=== PATIENT | male | born 1950 | race Caucasian/White ===

== ENCOUNTER 2022-12-05 13:18 | Inpatient (IN) ==
--- NOTE | 2022-12-05 13:46 | Emergency Department Note ---
Impression & Plan Wound, open, foot, CKD (chronic kidney disease), stage III, Cellulitis, Hyponatremia ED Provider Note Name: KARIE MATTSON Age: 72 Sex: M Arrives Via: Walk-In Informant: Patient, Daughter ED Provider: Kenny Benjamin MD Chief Complaint: Foot wound Impression: As per impression above Medical Decision Makin-year-old gentleman who notes a history of hypertension, A-fib, dyslipidemia but denies diabetes history though chart review would say that he has type 2 diabetes. Patient with several weeks of a wound of the left great toe. This occurred after accidentally pulling toenail off. His entire toe is now infected cellulitic and weeping with some ischemic findings distally. Cellulitis now extending over the foot and up the ankle and extending on the second toe. X- rays are without overt osteomyelitis findings. Labs are consistent with inflammatory process though no overt sepsis. Blood cultures were obtained. He was empirically started on Zosyn for broad coverage. Patient is not septic or severe sepsis at this time. Hospitalist was consulted for further management. Patient does not have acute full leg ischemia thus did not feel CTA imaging would be indicated at this time External chart review from [facility] record reviewed and triage/Nursing Notes reviewed by Me Differentials:Cellulitis, abscess, gangrene, osteomyelitis, sepsis, neck Fash, electrolyte imbalance amongst many other pathologies considered Vital Signs: reviewed and remarkable for hypertension on arrival Interventions: Normal saline bolus 1 L IV, Zofran 4 mg IV, Zosyn 4.5 g IV, pain IV Labs:Reviewed and remarkable for elevated CRP, hyponatremia, mild elevation in creatinine, hyperglycemia Imagin view chest x-ray interpreted by me no infiltrate nor effusion or congestive failure appreciated. 3 view left foot per my interpretation moderate soft tissue edema over medial distal foot, no overt fracture or foreign body or osteomyelitis appreciated Consults:Dr Adrienne Samuel Hospitalist Plan: Disposition:Hospitalization. Condition: Good History of Present Illness:72-year-old gentleman arrives for evaluation of toe injury. Patient notes about 5 weeks ago he accidentally tore his toenail off while he was taking off his sock. Since then some irritation but over the last week or so increasing redness drainage discoloration. It is now extending onto the second toe and is having cellulitis running up his foot. Associated with periodic sporadic stabbing pains. Worse with movement better with rest. No fevers, chills, nausea, vomiting. Denies any shortness of breath. Does note that his legs are more swollen than usual with bilateral legs swollen from the knees downward. Has a history of leg swelling this is a bit more severe than usual. Denies any other falls, trauma, injuries. Past Medical History:Hypertension, A-fib, dyslipidemia Home Medications:Lisinopril metoprolol atorvastatin aspirin and meloxicam Allergies:NKDA Vitals:Blood Pressure: 191/93, Pulse 95, RR 16, T 36.5C, O2 97% on RA Physical Exam: GENERAL: Patient is tired appearing and in minimal distress. EYES: No scleral icterus, unremarkable pupils. RESPIRATORY: No dyspnea. Clear to auscultation and equal bilaterally. No wheeze, no rhonchi. CARDIOVASCULAR: Tacky irregular.No murmurs, rubs, gallops appreciated. GASTROINTESTINAL: Abdomen soft, non-tender, no peritonitis. EXTREMITIES: Normal motion all extremities, no cyanosis, 3+ pitting edema bilateral lower legs from knees down. He has a gangrenous exudative draining left great toe with poor cap refill distally. Some mild edema drainage of the left second toe immediately. There is cellulitis extending over the top of the foot onto the medial left ankle. Patient has decreased pulses bilateral lower legs and the feet. NEUROLOGIC: Alert and oriented, no focal neurologic deficit SKIN: No rash, no jaundice, no diaphoresis. PSYCH: Appropriate GCS: 15 ED Course: Times/Reassessments: Patient is comfortable after some pain medications and agreeable to hospitalization Kenny Benjamin MD Past Med/Surg History Medical History Afib CAD (coronary artery disease) Chronic gout CKD (chronic kidney disease), stage III Diabetes type 2, controlled HTN (hypertension) Tophi gouty Surgical History S/P angioplasty with stent Social History Preferred Language: Yoruba Feels Safe at Home: Yes Allergies Allergies Allergy/AdvReac Type Severity Reaction Status Date / Time No Known Allergies Allergy Unverified 12/05/22 16:10 Home Meds Home Medications Medication Instructions Recorded Confirmed allopurinol 300 mg tablet 300 mg PO QAM 12/05/22 12/05/22 aspirin 81 mg tablet,delayed 81 mg PO DAILY 12/05/22 12/05/22 release lisinopril 20 mg tablet 20 mg PO QAM 12/05/22 12/05/22 meloxicam 15 mg tablet 15 mg PO QAM 12/05/22 12/05/22 metoprolol tartrate 25 mg tablet 25 mg PO BID 12/05/22 12/05/22 prednisone 5 mg tablet 5 mg PO QAM 12/05/22 12/05/22 simvastatin 20 mg tablet 20 mg PO QPM 12/05/22 12/05/22 Results & Data (ED) Vital Signs Vital Signs - 24 hr 12/05/22 13:20 12/05/22 16:00 12/05/22 16:08 Temperature 36.5 C Temperature Source Temporal Artery Scan Pulse Rate 95 H 75 Pulse Rate [Right Finger] 74 Pulse Rhythm [Right Finger] Irregular Pulse Strength [Right Finger] Normal Respiratory Rate 16 18 Respiratory Effort / Characteristics Non-Labored Non-Labored Respiratory Depth Normal Normal Respiratory Pattern Regular Blood Pressure 191/93 H Blood Pressure [Right Arm] 160/104 H Blood Pressure Mean 125 Blood Pressure Mean [Right Arm] 122 Blood Pressure Position [Right Arm] Lying Pulse Oximetry 97 100 Oxygen Delivery Method Room Air Room Air Sepsis Recent Fever Within 48 Hours No Sepsis New/Unexplained Change in Mental Status No Sepsis Action Taken by Nursing No Action Required 12/05/22 18:15 Temperature 36.8 C Temperature Source Oral Pulse Rate 66 Pulse Rate [Right Finger] Pulse Rhythm [Right Finger] Pulse Strength [Right Finger] Respiratory Rate 18 Respiratory Effort / Characteristics Respiratory Depth Respiratory Pattern Blood Pressure 158/101 H Blood Pressure [Right Arm] Blood Pressure Mean Blood Pressure Mean [Right Arm] Blood Pressure Position [Right Arm] Pulse Oximetry 99 Oxygen Delivery Method Room Air Sepsis Recent Fever Within 48 Hours Sepsis New/Unexplained Change in Mental Status Sepsis Action Taken by Nursing Laboratory Data 12/05/22 14:00 12/05/22 14:00 Lab Results 12/05/22 12/05/22 12/05/22 Range/Units 14:00 14:00 14:00 WBC (4.8-10.8) K/ul RBC (4.70-6.10) M/uL Hgb (14.0-18.0) g/dl Hct (42.0-52.0) % MCV (80.0-100.0) fL MCH (25.0-34.0) pg MCHC (32.0-36.0) g/dL RDW Std Deviation (36.4-46.3) fL RDW Coeff of Landen (11.5-14.5) % Plt Count (130-400) K/uL MPV (9.4-12.4) fL Immature Gran % (Auto) % Neut % (Auto) % Lymph % (Auto) % Allen % (Auto) % Eos % (Auto) % Baso % (Auto) % Neut # (Auto) (1.40-6.50) K/uL Lymph # (Auto) (1.2-3.4) K/uL Allen # (Auto) (0.11-0.59) K/uL Eos # (Auto) (0-0.50) K/uL Baso # (Auto) (0-0.2) K/uL Immature Gran # (Auto) (0.01-0.20) K/uL PT (9.0-12.0) Seconds INR (0.9-1.1) Sodium 128 L (136-145) mmol/L Potassium 4.6 (3.5-5.1) mmol/L Chloride 97 L (98-107) mmol/L Carbon Dioxide 24 (21-32) mmol/L Anion Gap 7 (3-11) BUN 28 H (6-23) mg/dl Creatinine 1.46 H (0.6-1.4) mg/dl Est Cr Clr Drug Dosing Not Reportable Est GFR ( Amer) 55.3 ml/min Est GFR (Non-Af Amer) 47.7 ml/min BUN/Creatinine Ratio 19.2 (10-20) Glucose 135 H (70-99(Fasting)) mg/dl Lactate 1.1 (0.4-2.0) mmol/L Calcium 9.6 (8.6-10.3) mg/dl Magnesium 2.1 (1.7-2.4) mg/dl Total Bilirubin 0.6 (0.2-1.0) mg/dl Direct Bilirubin 0.1 (0-0.2) mg/dl AST 15 (13-39) U/L ALT 14 (7-52) U/L Alkaline Phosphatase 69 (34-104) U/L Troponin I High Sens 11.0 (0-20) pg/ml C-Reactive Protein 2.41 H (0-0.5) mg/dl B-Natriuretic Peptide 274 H (0-100) pg/ml Total Protein 7.6 (6.0-8.3) gm/dl Albumin 4.2 (3.4-5.0) gm/dl Procalcitonin (0-0.5) ng/ml Urine Color Urine Appearance (Clear) Urine pH (4.5-7.5) Ur Specific [place] (1.000-1.030) Urine Protein (Negative) Urine Glucose (UA) (Negative) Urine Ketones (Negative) Urine Blood (Negative) Urine Nitrite (Negative) Urine Bilirubin (Negative) Urine Urobilinogen (Negative) Ur Leukocyte Esterase (Negative) Urine WBC (Auto) (0-5) /hpf Urine RBC (Auto) (0-4) /hpf U Hyaline Cast (Auto) (0-5) /lpf U Epithel Cells (Auto) (0-5) /lpf Urine Bacteria (Auto) (Negative) SARS-CoV-2 (PCR) (Negative) Influenza Type A (PCR) (Neg) Influenza Type B (PCR) (Neg) RSV (RT-PCR) (Neg) 12/05/22 12/05/22 12/05/22 Range/Units 14:00 14:00 14:00 WBC 11.82 H (4.8-10.8) K/ul RBC 3.95 L (4.70-6.10) M/uL Hgb 13.4 L (14.0-18.0) g/dl Hct 37.7 L (42.0-52.0) % MCV 95.4 (80.0-100.0) fL MCH 33.9 (25.0-34.0) pg MCHC 35.5 (32.0-36.0) g/dL RDW Std Deviation 47.7 H (36.4-46.3) fL RDW Coeff of Landen 13.7 (11.5-14.5) % Plt Count 288 (130-400) K/uL MPV 8.9 L (9.4-12.4) fL Immature Gran % (Auto) 1.0 % Neut % (Auto) 87.8 % Lymph % (Auto) 4.6 % Allen % (Auto) 6.1 % Eos % (Auto) 0.3 % Baso % (Auto) 0.2 % Neut # (Auto) 10.39 H (1.40-6.50) K/uL Lymph # (Auto) 0.54 L (1.2-3.4) K/uL Allen # (Auto) 0.72 H (0.11-0.59) K/uL Eos # (Auto) 0.03 (0-0.50) K/uL Baso # (Auto) 0.02 (0-0.2) K/uL Immature Gran # (Auto) 0.12 (0.01-0.20) K/uL PT 11.3 (9.0-12.0) Seconds INR 1.1 (0.9-1.1) Sodium (136-145) mmol/L Potassium (3.5-5.1) mmol/L Chloride (98-107) mmol/L Carbon Dioxide (21-32) mmol/L Anion Gap (3-11) BUN (6-23) mg/dl Creatinine (0.6-1.4) mg/dl Est Cr Clr Drug Dosing Est GFR ( Amer) ml/min Est GFR (Non-Af Amer) ml/min BUN/Creatinine Ratio (10-20) Glucose (70-99(Fasting)) mg/dl Lactate (0.4-2.0) mmol/L Calcium (8.6-10.3) mg/dl Magnesium (1.7-2.4) mg/dl Total Bilirubin (0.2-1.0) mg/dl Direct Bilirubin (0-0.2) mg/dl AST (13-39) U/L ALT (7-52) U/L Alkaline Phosphatase (34-104) U/L Troponin I High Sens (0-20) pg/ml C-Reactive Protein (0-0.5) mg/dl B-Natriuretic Peptide (0-100) pg/ml Total Protein (6.0-8.3) gm/dl Albumin (3.4-5.0) gm/dl Procalcitonin 0.08 (0-0.5) ng/ml Urine Color Urine Appearance (Clear) Urine pH (4.5-7.5) Ur Specific [place] (1.000-1.030) Urine Protein (Negative) Urine Glucose (UA) (Negative) Urine Ketones (Negative) Urine Blood (Negative) Urine Nitrite (Negative) Urine Bilirubin (Negative) Urine Urobilinogen (Negative) Ur Leukocyte Esterase (Negative) Urine WBC (Auto) (0-5) /hpf Urine RBC (Auto) (0-4) /hpf U Hyaline Cast (Auto) (0-5) /lpf U Epithel Cells (Auto) (0-5) /lpf Urine Bacteria (Auto) (Negative) SARS-CoV-2 (PCR) (Negative) Influenza Type A (PCR) (Neg) Influenza Type B (PCR) (Neg) RSV (RT-PCR) (Neg) 12/05/22 12/05/22 Range/Units 14:03 14:03 WBC (4.8-10.8) K/ul RBC (4.70-6.10) M/uL Hgb (14.0-18.0) g/dl Hct (42.0-52.0) % MCV (80.0-100.0) fL MCH (25.0-34.0) pg MCHC (32.0-36.0) g/dL RDW Std Deviation (36.4-46.3) fL RDW Coeff of Landen (11.5-14.5) % Plt Count (130-400) K/uL MPV (9.4-12.4) fL Immature Gran % (Auto) % Neut % (Auto) % Lymph % (Auto) % Allen % (Auto) % Eos % (Auto) % Baso % (Auto) % Neut # (Auto) (1.40-6.50) K/uL Lymph # (Auto) (1.2-3.4) K/uL Allen # (Auto) (0.11-0.59) K/uL Eos # (Auto) (0-0.50) K/uL Baso # (Auto) (0-0.2) K/uL Immature Gran # (Auto) (0.01-0.20) K/uL PT (9.0-12.0) Seconds INR (0.9-1.1) Sodium (136-145) mmol/L Potassium (3.5-5.1) mmol/L Chloride (98-107) mmol/L Carbon Dioxide (21-32) mmol/L Anion Gap (3-11) BUN (6-23) mg/dl Creatinine (0.6-1.4) mg/dl Est Cr Clr Drug Dosing Est GFR ( Amer) ml/min Est GFR (Non-Af Amer) ml/min BUN/Creatinine Ratio (10-20) Glucose (70-99(Fasting)) mg/dl Lactate (0.4-2.0) mmol/L Calcium (8.6-10.3) mg/dl Magnesium (1.7-2.4) mg/dl Total Bilirubin (0.2-1.0) mg/dl Direct Bilirubin (0-0.2) mg/dl AST (13-39) U/L ALT (7-52) U/L Alkaline Phosphatase (34-104) U/L Troponin I High Sens (0-20) pg/ml C-Reactive Protein (0-0.5) mg/dl B-Natriuretic Peptide (0-100) pg/ml Total Protein (6.0-8.3) gm/dl Albumin (3.4-5.0) gm/dl Procalcitonin (0-0.5) ng/ml Urine Color Yellow Urine Appearance Clear (Clear) Urine pH 5.5 (4.5-7.5) Ur Specific [place] 1.017 (1.000-1.030) Urine Protein 1+ H (Negative) Urine Glucose (UA) Trace H (Negative) Urine Ketones Negative (Negative) Urine Blood Negative (Negative) Urine Nitrite Negative (Negative) Urine Bilirubin Negative (Negative) Urine Urobilinogen Negative (Negative) Ur Leukocyte Esterase Negative (Negative) Urine WBC (Auto) 1-5 (0-5) /hpf Urine RBC (Auto) 0-4 (0-4) /hpf U Hyaline Cast (Auto) 1-5 (0-5) /lpf U Epithel Cells (Auto) 5-10 H (0-5) /lpf Urine Bacteria (Auto) Negative (Negative) SARS-CoV-2 (PCR) NEGATIVE (Negative) Influenza Type A (PCR) Negative (Neg) Influenza Type B (PCR) Negative (Neg) RSV (RT-PCR) Negative (Neg) Administered Medications Discontinued Medications Sodium Chloride (Nss 1000ml) 500 mls @ 999 mls/hr IV .Q31M ONE Stop: 12/05/22 15:10 Last Infusion: 12/05/22 15:59 Dose: 0 mls/hr Documented By: Admin: 12/05/22 15:27 Dose: 999 mls/hr Documented By: AP Piperacillin Sod/Tazobactam Sod (Zosyn) 4.5 gm in 120 mls @ 240 mls/hr IV NOW ONE Stop: 12/05/22 15:26 Last Infusion: 12/05/22 15:59 Dose: 0 mls/hr Documented By: Admin: 12/05/22 15:27 Dose: 240 mls/hr Documented By: AP Morphine Sulfate (Morphine Sulfate 10 Mg/Ml Carp/Vial) 6 mg IV NOW STA Stop: 12/05/22 14:41 Last Admin: 12/05/22 15:27 Dose: Not Given Documented By: AP Morphine Sulfate (Morphine Sulfate 2 Mg/Ml Carp) Confirm Administered Dose 2 mg .ROUTE .STK-MED ONE Stop: 12/05/22 15:13 Last Admin: 12/05/22 15:26 Dose: 2 mg Documented By: AP Morphine Sulfate (Morphine Sulfate 4 Mg/Ml 1 Ml Carp\Vial) Confirm Administered Dose 4 mg .ROUTE .STK-MED ONE Stop: 12/05/22 15:14 Last Admin: 12/05/22 15:26 Dose: 4 mg Documented By: AP Ondansetron HCl (Ondansetron Inj 2 Mg/Ml 2 Ml Vial) 4 mg IV NOW STA Stop: 12/05/22 14:41 Last Admin: 12/05/22 15:26 Dose: 4 mg Documented By: AP Imaging Data Radiologist's Impression: Chest X-Ray 12/05/22 13:35 XR chest 1V portable CLINICAL HISTORY: fluid overload TECHNIQUE: Single frontal radiograph of the chest was obtained. Comparison: None available at the time of this dictation. FINDINGS: No lines and tubes are seen. Cardiomegaly is noted. The lungs are clear. No evidence of pleural effusion or pneumothorax. IMPRESSION: No acute chest disease. ACT 112: Negative or not required by law. Electronically signed by: Madi Carmen M.D. 12/05/2022 1:58 PM Foot X-Ray 12/05/22 13:40 XR foot LT min 3V routine CLINICAL HISTORY: left great toe infection TECHNIQUE: 3 views of the left foot were obtained. Comparison: None available at the time of this dictation. FINDINGS: No evidence of bony erosion is seen. Degenerative changes are seen with erosions about the second digit DIP joint. Vascular calcifications are noted. Soft tissue swelling is seen about the foot. IMPRESSION: No radiographic evidence of osteomyelitis. If clinical concern remains, MRI is a more sensitive modality. ACT 112: Negative or not required by law. Electronically signed by: Madi Carmen M.D. 12/05/2022 2:04 PM Venous Doppler Study 12/05/22 16:43 US venous doppler LE BI CLINICAL HISTORY: worsening leg swelling (b/l but L>R) TECHNIQUE: Bilateral lower extremity real-time compression venous ultrasound with Color Doppler imaging. Utilizing real-time ultrasonic imaging multiple real time high-resolution ultrasonic images with compression and noncompression maneuvers of the deep venous system in addition to color doppler imaging were performed from the common femoral vein through the proximal calf veins. COMPARISON: None available at the time of this dictation. FINDINGS/IMPRESSION: Currently there is normal compressibility of the deep venous system from the common femoral vein through the proximal calf veins. No superficial venous thrombosis is identified. ACT 112: Negative or not required by law. Electronically signed by: Madi Carmen M.D. 12/05/2022 6:05 PM Discharge Plan Visit Data Chief Complaint: Infection Stated Complaint: INFECTION ON L TOES ED Provider: Kenny Benjamin Discharge Problem: Wound, open, foot, CKD (chronic kidney disease), stage III, Cellulitis, Hyponatremia Discharge Instructions Interventions: ED Discharge Assessment Last Done: 12/05/22 18:15 Prescriptions Prescriptions: No Action meloxicam 15 mg tablet 15 mg PO QAM lisinopril 20 mg tablet 20 mg PO QAM prednisone 5 mg tablet 5 mg PO QAM simvastatin 20 mg tablet 20 mg PO QPM allopurinol 300 mg tablet 300 mg PO QAM metoprolol tartrate 25 mg tablet 25 mg PO BID aspirin [Aspirin Low-Strength] 81 mg Tablet,Delayed Release (Dr/Ec) 81 mg PO DAILY
--- NOTE | 2022-12-05 13:59 | XRay Report ---
XR chest 1V portable CLINICAL HISTORY: fluid overload TECHNIQUE: Single frontal radiograph of the chest was obtained. Comparison: None available at the time of this dictation. FINDINGS: No lines and tubes are seen. Cardiomegaly is noted. The lungs are clear. No evidence of pleural effus ion or pneumothorax. IMPRESSION: No acute chest disease. ACT 112: Negative or not required by law. Electronically signed by: Madi Carmen M.D. 12/05/2022 1:58 PM
--- NOTE | 2022-12-05 14:05 | XRay Report ---
XR foot LT min 3V routine CLINICAL HISTORY: left great toe infection TECHNIQUE: 3 views of the left foot were obtained. Comparison: None available at the time of this dictation. FINDINGS: No evidence of bony erosion is seen. Degenerative changes are seen with erosions about the second dig it DIP joint. Vascular calcifications are noted. Soft tissue swelling is seen about the foot. IMPRESSION: No radiographic evidence of osteomyelitis. If clinical concern remains, MRI is a more sensitive modal ity. ACT 112: Negative or not required by law. Electronically signed by: Madi Carmen M.D. 12/05/2022 2:04 PM
[2022-12-05 14:37] LABS: Alanine Aminotransferase 14 U/L (7-52); Albumin Level 4.2 gm/dl (3.4-5.0); Alkaline Phosphatase 69 U/L (34-104); Anion Gap 7 (3-11); Aspartate Aminotransferase 15 U/L (13-39); BUN Creatinine Ratio 19.2 (10-20); Bilirubin Direct 0.1 mg/dl (0-0.2); Bilirubin,Total 0.6 mg/dl (0.2-1.0); Blood Urea Nitrogen 28 mg/dl (6-23); C Reactive Protein 2.41 mg/dl (0-0.5); Calcium 9.6 mg/dl (8.6-10.3); Carbon Dioxide 24 mmol/L (21-32); Chloride 97 mmol/L (98-107); Est GFR (African American) 55.3 ml/min; Est GFR (Non-African American) 47.7 ml/min; Glucose 135 mg/dl (70-99(Fasting)); Magnesium 2.1 mg/dl (1.7-2.4); Potassium 4.6 mmol/L (3.5-5.1); Sodium 128 mmol/L (136-145); Total Protein 7.6 gm/dl (6.0-8.3)
[2022-12-05 14:38] LABS: Appearance Urine Clear (Clear); Bacteria Urine Automated Negative (Negative); Bilirubin Urine Negative (Negative); Blood Urine Negative (Negative); Color Urine Yellow; Glucose Urine UA Trace (Negative); Ketones Urine Negative (Negative); Leukocyte Esterase Urine Negative (Negative); Nitrite Urine Negative (Negative); Protein Urine 1+ (Negative); RBC Urine Automated 0-4 /hpf (0-4); Specific Gravity Urine 1.017 (1.000-1.030); Urobilinogen Urine Negative (Negative); pH Urine 5.5 (4.5-7.5)
[2022-12-05] MEDS ORDERED: SODIUM CHLORIDE 0.9% 1000ML 500 ML IV ONE (14:40)
[2022-12-05] MEDS ORDERED: ONDANSETRON INJ 2 MG/ML 2 ML VIAL IV STA (14:40)
[2022-12-05] MEDS ORDERED: MoRPHine SULFATE 10 MG/ML CARP/VIAL IV STA (14:40)
[2022-12-05 14:47] LABS: INR 1.1 (0.9-1.1); Prothrombin Time 11.3 Seconds (9.0-12.0)
[2022-12-05 14:54] LABS: Influenza A virus by PCR Negative (Neg); Influenza B virus by PCR Negative (Neg); RSV by PCR Negative (Neg); SARS CoV2 RNA(COVID-19) Ceph NEGATIVE (Negative)
[2022-12-05] MEDS ORDERED: PIPERACILLIN/TAZOBACTAM 4.5 GM/120 ML BAG IV ONE (14:57)
[2022-12-05] MEDS ORDERED: MoRPHine SULFATE 2 MG/ML CARP ONE (15:12)
[2022-12-05] MEDS ORDERED: MoRPHine SULFATE 4 MG/ML 1 ML CARP\\VIAL ONE (15:13)
[2022-12-05 15:54] LABS: Eosinophils % (auto) 0.3 %; Hematocrit (blood only) 37.7 % (42.0-52.0); Hemoglobin 13.4 g/dl (14.0-18.0); Lymphocytes % (auto) 4.6 %; Mean Corpuscular Hemoglobin 33.9 pg (25.0-34.0); Mean Corpuscular Hgb Conc 35.5 g/dL (32.0-36.0); Mean Corpuscular Volume 95.4 fL (80.0-100.0); Mean Platelet Volume 8.9 fL (9.4-12.4); Monocytes % (auto) 6.1 %; Neutrophils % (auto) 87.8 %; Platelet Count 288 K/uL (130-400); RDW Coefficient of Variation 13.7 % (11.5-14.5); RDW Standard Deviation 47.7 fL (36.4-46.3); Red Blood Count 3.95 M/uL (4.70-6.10); White Blood Count 11.82 K/ul (4.8-10.8)
[2022-12-05 15:55] LABS: Basophils # (auto) 0.02 K/uL (0-0.2); Basophils % (auto) 0.2 %; Eosinophils # (auto) 0.03 K/uL (0-0.50); Immature Granulocytes # (auto) 0.12 K/uL (0.01-0.20); Lymphocytes # (auto) 0.54 K/uL (1.2-3.4); Monocytes # (auto) 0.72 K/uL (0.11-0.59); Neutrophils # (auto) 10.39 K/uL (1.40-6.50)
--- NOTE | 2022-12-05 18:06 | Ultrasound Report ---
US venous doppler LE BI CLINICAL HISTORY: worsening leg swelling (b/l but L>R) TECHNIQUE: Bilateral lower extremity real-time compression venous ultrasound with Color Doppler imagi ng. Utilizing real-time ultrasonic imaging multiple real time high-resolution ultrasonic images with compression and noncompression maneuvers of the deep venous system in addition to color doppler imagi ng were performed from the common femoral vein through the proximal calf veins. COMPARISON: None available at the time of this dictation. FINDINGS/IMPRESSION: Currently there is normal compressibility of the deep venous system from the common femoral vein thro ugh the proximal calf veins. No superficial venous thrombosis is identified. ACT 112: Negative or not required by law. Electronically signed by: Madi Carmen M.D. 12/05/2022 6:05 PM
--- NOTE | 2022-12-05 18:14 | History & Physical Report ---
Date of Service December 05, 2022 Assessment & Plan (1) Wound, open, foot: (2) Cellulitis: (3) Leg edema: (4) Hyponatremia: (5) Diabetes type 2, controlled: (6) Afib: (7) CKD (chronic kidney disease), stage III: (8) CAD (coronary artery disease): (9) S/P angioplasty with stent: (10) Chronic gout: (11) HTN (hypertension): Plan L foot wound with cellulitis + hx of Diabetes: -presence of leukocytosis -with hx of DMII and chronic prednisone use will do Vanc and Zosyn --- MRSA swab -Foot Xray showed no sign of osteo -however due to the presentation of the wound will get a MRI foot to r/o osteo -Ortho consult -morphine 1mg q6hr prn for severe pain B/L leg swelling with L leg erythema: -severe b/l pitting edema -with the hx of CAD and Afib will get echo -b/l Doppler: no dvt -admit to tele - no need for cardiology consult at this time - likely need to be on diuretics --- will await until echo and repeat BMP (since pt is getting contrast with MRI) HypoNa+: -2/2 infection vs possible fluid overload -will trend BMP Afib: -not on AC due to recurrent nose bleed on Coumadin -currently on aspirin and Metoprolol DMII: -pt was not aware that he has diabetes -last outpt A1C was 6.5 --- will repeat it -ISS HTN and chronic Gout: -continue allopurinol -on chronic prednisone 5mg daily -continue Lisinopril Diet: Heart healthy and DMII DVT PPx: Lovenox Code Status:FULL CODE Emergency Contact: Trudy Lackey [phone] History of Present Illness Chief Complaint: L toe wound Primary Care Provider: Faviola Serrano PA-C Pt is a 72 y/o M with hx of Chronic Gout with tophi, DMII (not on meds), CKD III, CAD s/p stent, Afib (not on AC due to nose bleed), HTN came into the ER with worsening L big toe swelling, erythema and drainage. Per pt abt 5 days ago when he removed his socks the big toenail came off since then the area has been erythematous, and having drainage. Recently the L left gotten more swollen with increased pain. Pt also experiencing worsening b/l leg swelling. Denied any acute CP, SOB, or orthopnea. Denied any fever or prior hx of foot ulcer. Has been on allopurinol and prednisone 5mg daily for chronic gout with tophi Allergies Allergy/AdvReac Type Severity Reaction Status Date / Time No Known Allergies Allergy Unverified 12/05/22 16:10 Home Medications Medication Instructions Recorded Confirmed Type allopurinol 300 mg tablet 300 mg PO QAM 12/05/22 12/05/22 History aspirin 81 mg tablet,delayed 81 mg PO DAILY 12/05/22 12/05/22 History release lisinopril 20 mg tablet 20 mg PO QAM 12/05/22 12/05/22 History meloxicam 15 mg tablet 15 mg PO QAM 12/05/22 12/05/22 History metoprolol tartrate 25 mg tablet 25 mg PO BID 12/05/22 12/05/22 History prednisone 5 mg tablet 5 mg PO QAM 12/05/22 12/05/22 History simvastatin 20 mg tablet 20 mg PO QPM 12/05/22 12/05/22 History Past Med/Surg History Medical History Afib CAD (coronary artery disease) Chronic gout CKD (chronic kidney disease), stage III Diabetes type 2, controlled HTN (hypertension) Tophi gouty Surgical History S/P angioplasty with stent Social History Preferred Language: [place] Feels Safe at Home: Yes Review of Systems Review of Systems: At least 10 Review of systems were reviewed and all negative except as indicated in HPI Physical Exam Physical Exam: General:. NAD, well developed, well nourished, average body habitus HEENT:. Normocephalic and atraumatic, Normal Conjunctiva, EOMI, Sclera is non- icteric Lungs:. No signs of respiratory distress, CTA, no wheezing or crackles Heart:.in afib Abdominal:. ND, Soft, NT MSK:severe b/l LE pitting edema, L foot: absence of L first toenail with stage 3 ulcers and serosanguineous drainage, L foot erythema and TTP Psych:. AAOx3, normal affect Results & Data Results & Data Vital Signs (Past 12 Hours) Vital Signs Temp Pulse Pulse Resp BP BP Pulse Ox 12/05/22 16:08 75 12/05/22 16:00 74 18 160/104 H 100 12/05/22 13:20 36.5 C 95 H 16 191/93 H 97 O2 Del Method 12/05/22 16:08 12/05/22 16:00 Room Air 12/05/22 13:20 Room Air Laboratory Results Short CBC 12/05/22 Range/Units 14:00 WBC 11.82 H (4.8-10.8) K/ul Hgb 13.4 L (14.0-18.0) g/dl Hct 37.7 L (42.0-52.0) % Plt Count 288 (130-400) K/uL BMP 12/05/22 14:00 Sodium 128 L Potassium 4.6 Chloride 97 L Carbon Dioxide 24 BUN 28 H Creatinine 1.46 H Glucose 135 H Calcium 9.6 Liver Function 12/05/22 Range/Units 14:00 Total Bilirubin 0.6 (0.2-1.0) mg/dl Direct Bilirubin 0.1 (0-0.2) mg/dl AST 15 (13-39) U/L ALT 14 (7-52) U/L Alkaline Phosphatase 69 (34-104) U/L Albumin 4.2 (3.4-5.0) gm/dl Urine 12/05/22 Range/Units 14:03 Urine Color Yellow Urine Appearance Clear (Clear) Urine pH 5.5 (4.5-7.5) Ur Specific [place] 1.017 (1.000-1.030) Urine Protein 1+ H (Negative) Urine Glucose (UA) Trace H (Negative) Diagnostic Findings Chest X-Ray 12/05/22 13:35 XR chest 1V portable CLINICAL HISTORY: fluid overload TECHNIQUE: Single frontal radiograph of the chest was obtained. Comparison: None available at the time of this dictation. FINDINGS: No lines and tubes are seen. Cardiomegaly is noted. The lungs are clear. No evidence of pleural effusion or pneumothorax. IMPRESSION: No acute chest disease. ACT 112: Negative or not required by law. Electronically signed by: Madi Carmen M.D. 12/05/2022 1:58 PM Foot X-Ray 12/05/22 13:40 XR foot LT min 3V routine CLINICAL HISTORY: left great toe infection TECHNIQUE: 3 views of the left foot were obtained. Comparison: None available at the time of this dictation. FINDINGS: No evidence of bony erosion is seen. Degenerative changes are seen with erosions about the second digit DIP joint. Vascular calcifications are noted. Soft tissue swelling is seen about the foot. IMPRESSION: No radiographic evidence of osteomyelitis. If clinical concern remains, MRI is a more sensitive modality. ACT 112: Negative or not required by law. Electronically signed by: Madi Carmen M.D. 12/05/2022 2:04 PM Venous Doppler Study 12/05/22 16:43 US venous doppler LE BI CLINICAL HISTORY: worsening leg swelling (b/l but L>R) TECHNIQUE: Bilateral lower extremity real-time compression venous ultrasound with Color Doppler imaging. Utilizing real-time ultrasonic imaging multiple real time high-resolution ultrasonic images with compression and noncompression maneuvers of the deep venous system in addition to color doppler imaging were performed from the common femoral vein through the proximal calf veins. COMPARISON: None available at the time of this dictation. FINDINGS/IMPRESSION: Currently there is normal compressibility of the deep venous system from the common femoral vein through the proximal calf veins. No superficial venous thrombosis is identified. ACT 112: Negative or not required by law. Electronically signed by: Madi Carmen M.D. 12/05/2022 6:05 PM Code Status & VTE Plan VTE Prophylaxis Plan VTE Prophylaxis will be ordered: Yes
[2022-12-05] MEDS ORDERED: DEXTROSE 50% 50 ML SYRINGE IV PRN (19:29)
[2022-12-05] MEDS ORDERED: CARBOHYDRATES FOR HYPOGLYCEMIA PO PRN (19:29)
[2022-12-05] MEDS ORDERED: VANCOMYCIN CONSULT ACTIVE PRN (19:29)
[2022-12-05] MEDS ORDERED: GLUCAGON FOR INJ 1 MG VIAL SQ PRN (19:29)
[2022-12-05] MEDS ORDERED: GLUCOSE 40% GEL 15 GM TUBE PO PRN (19:29)
[2022-12-05] MEDS ORDERED: GLUCOSE 10 TAB/TUBE PO PRN (19:29)
[2022-12-05] MEDS ORDERED: VANCOMYCIN HCL 2,500 MG in SODIUM CHLORIDE 0.9% 500 ML IV ONE (20:00)
[2022-12-05] MEDS: INSULIN ASPART PER UNIT CHARGE SC SCH (20:34)
[2022-12-05] MEDS: ENOXAPARIN INJ 40 MG/0.4 ML SYR SQ SCH (20:37)
[2022-12-05] MEDS: METOPROLOL TARTRATE 25 MG TAB PO SCH (20:38)
[2022-12-05] MEDS: SIMVASTATIN 20 MG TAB PO SCH (20:39)
[2022-12-05] MEDS: MoRPHine SULFATE 2 MG/ML CARP IV PRN (20:48)
[2022-12-05] MEDS: ACETAMINOPHEN 325 MG TAB PO PRN (21:45)
[2022-12-05] MEDS: PIPERACILLIN/TAZOBACTAM 3.375 GM in DEXTROSE 5% 100 ML IV SCH (23:46)
[2022-12-06] MEDS: ACETAMINOPHEN 325 MG TAB PO PRN ×2 (02:23→07:35)
[2022-12-06] MEDS: MoRPHine SULFATE 2 MG/ML CARP IV PRN ×3 (04:53→20:06)
[2022-12-06 06:53] LABS: Basophils # (auto) 0.07 K/uL (0-0.2); Basophils % (auto) 0.8 %; Eosinophils # (auto) 0.13 K/uL (0-0.50); Eosinophils % (auto) 1.5 %; Hematocrit (blood only) 37.9 % (42.0-52.0); Hemoglobin 13.2 g/dl (14.0-18.0); Immature Granulocytes # (auto) 0.05 K/uL (0.01-0.20); Immature Granulocytes % (auto) 0.6 %; Lymphocytes % (auto) 12.6 %; Mean Corpuscular Hemoglobin 34.2 pg (25.0-34.0); Mean Corpuscular Hgb Conc 34.8 g/dL (32.0-36.0); Mean Corpuscular Volume 98.2 fL (80.0-100.0); Mean Platelet Volume 8.9 fL (9.4-12.4); Monocytes % (auto) 10.3 %; Neutrophils # (auto) 6.49 K/uL (1.40-6.50); Neutrophils % (auto) 74.2 %; Platelet Count 259 K/uL (130-400); RDW Coefficient of Variation 14.1 % (11.5-14.5); RDW Standard Deviation 50.4 fL (36.4-46.3); Red Blood Count 3.86 M/uL (4.70-6.10); White Blood Count 8.74 K/ul (4.8-10.8)
[2022-12-06 07:10] LABS: Albumin Globulin Ratio 1.3 (0.9-2); Albumin Level 3.9 gm/dl (3.4-5.0); BUN Creatinine Ratio 15.7 (10-20); Bilirubin,Total 0.5 mg/dl (0.2-1.0); Calcium 9.3 mg/dl (8.6-10.3); Est GFR (African American) 61.3 ml/min; Est GFR (Non-African American) 52.9 ml/min; Magnesium 2.1 mg/dl (1.7-2.4); Potassium 4.8 mmol/L (3.5-5.1); Total Protein 6.9 gm/dl (6.0-8.3)
[2022-12-06] MEDS: PIPERACILLIN/TAZOBACTAM 3.375 GM in DEXTROSE 5% 100 ML IV SCH ×3 (07:35→22:38)
[2022-12-06] MEDS: allopurinoL 300 MG TAB PO SCH (07:36)
[2022-12-06] MEDS: predniSONE 5 MG TAB PO SCH (07:36)
[2022-12-06] MEDS: METOPROLOL TARTRATE 25 MG TAB PO SCH ×2 (07:36→20:02)
[2022-12-06] MEDS: ASPIRIN 81 MG ECTAB PO SCH (07:36)
[2022-12-06] MEDS: lisinopril 20 MG TAB PO SCH (07:36)
[2022-12-06] MEDS: INSULIN ASPART PER UNIT CHARGE SC SCH ×4 (07:38→20:42)
--- NOTE | 2022-12-06 07:39 | Hospitalist Progress Note ---
Date of Service December 06, 2022 Assessment & Plan (1) Wound, open, foot: (2) Cellulitis: (3) Leg edema: (4) Hyponatremia: (5) Diabetes type 2, controlled: (6) Afib: (7) CKD (chronic kidney disease), stage III: (8) CAD (coronary artery disease): (9) S/P angioplasty with stent: (10) Chronic gout: (11) HTN (hypertension): Plan L foot wound with cellulitis + hx of Diabetes: -presence of leukocytosis -with hx of DMII and chronic prednisone use started on Vanc and Zosyn on admission --- MRSA swab - blood culture and wound cultx - pending -Foot Xray showed no sign of osteo -however due to the presentation of the wound ,MRI foot to r/o osteo ordered MRI - IMPRESSION: Soft tissue edema is seen compatible with cellulitis. There is diffuse increased signal in the distal digits which is likely due to failure of fat suppression. No definite first digit osteomyelitis is seen. If clinical concern remains, study may be required with the first digit at the center of the field of view. -Ortho consulted - concern for ischemic issues/toe necrosis. Discussed over the phone. Recommend vascular surgery consultation. Consult for Dr. Lydia chen. - pain control w/ oxy prn, morphine prn B/L leg swelling with L leg erythema: -severe b/l pitting edema on admission - now significantly improved -BNP 274 on admission -with the hx of CAD and Afib - echo ordered -b/l Doppler: no dvt -monitor on tele --- will await until echo and repeat BMP (since pt is getting contrast with MRI) HypoNa+: -2/2 infection vs possible fluid overload - Sodium improved, current 135 - continue to monitor, BMP AM ordered Afib: -not on AC due to recurrent nose bleed on Coumadin -currently on aspirin and Metoprolol DMII: -pt was not aware that he has diabetes -last outpt A1C was 6.5 --- will repeat it - pending -ISS HTN and chronic Gout: -continue allopurinol -on chronic prednisone 5mg daily -continue Lisinopril Diet: Heart healthy and DMII DVT PPx: Lovenox Code Status:FULL CODE Emergency Contact: Drea Lackey [phone] Admission and Anticipated Discharge Date Admission Date: December 05, 2022 Subjective Pt seen in follow up of L toe /foot cellulitis, b/l LE edema Patient seen by orthopedic surgeon, Dr. Lewis, discussed with Dr. Lewis over the phone. He feels that patient needs vascular surgery consultation. Consult for Dr. Lydia chen. Patient is currently sitting up in bed, in no acute distress. Overall states that he feels better. He is breathing comfortably on room air. He is awake alert oriented, besides some pain in his left toe, has no other complaints. Denies any fevers chills chest pain shortness of breath. Reports lower extremity edema improved. Review of Systems Review of Systems: All systems reviewed & are unremarkable except as noted in Subjective Physical Exam Physical Exam: General: WD/WN M in NAD HEENT:.Normocephalic and atraumatic, Normal Conjunctiva, EOMI, Sclera is non- icteric Lungs: CTAB, no wheezing, rhonchi, or crackles Heart: irregular Abdominal: Soft,+ bowel sounds, NT, obese MSK: 1-2 + b/l LE edema (improved), L foot: absence of L first toenail , tip of L toe necrotic, no drainage noted today, L foot erythema and TTP Psych:.AAOx3, normal affect Results & Data Results & Data Vital Signs (Past 12 Hours) Vital Signs Temp Pulse Pulse Resp BP Pulse Ox O2 Del Method 12/06/22 03:51 36.6 C 72 18 161/64 H 96 Room Air 12/05/22 20:07 96 H 12/05/22 22:44 37 C 83 20 146/74 H 97 Room Air 12/05/22 19:59 94 H 20 197/76 H 97 Room Air Laboratory Results 12/06/22 12/06/22 12/06/22 Range/Units 07:25 06:11 06:11 WBC (4.8-10.8) K/ul RBC (4.70-6.10) M/uL Hgb (14.0-18.0) g/dl Hct (42.0-52.0) % MCV (80.0-100.0) fL MCH (25.0-34.0) pg MCHC (32.0-36.0) g/dL RDW Std Deviation (36.4-46.3) fL RDW Coeff of Landen (11.5-14.5) % Plt Count (130-400) K/uL MPV (9.4-12.4) fL Immature Gran % (Auto) % Neut % (Auto) % Lymph % (Auto) % Lewis % (Auto) % Eos % (Auto) % Baso % (Auto) % Neut # (Auto) (1.40-6.50) K/uL Lymph # (Auto) (1.2-3.4) K/uL Lewis # (Auto) (0.11-0.59) K/uL Eos # (Auto) (0-0.50) K/uL Baso # (Auto) (0-0.2) K/uL Immature Gran # (Auto) (0.01-0.20) K/uL PT (9.0-12.0) Seconds INR (0.9-1.1) Sodium 135 L (136-145) mmol/L Potassium 4.8 (3.5-5.1) mmol/L Chloride 103 (98-107) mmol/L Carbon Dioxide 25 (21-32) mmol/L Anion Gap 7 (3-11) BUN 21 (6-23) mg/dl Creatinine 1.34 (0.6-1.4) mg/dl Est Cr Clr Drug Dosing 61.0 Est GFR ( Amer) 61.3 ml/min Est GFR (Non-Af Amer) 52.9 ml/min BUN/Creatinine Ratio 15.7 (10-20) Glucose 98 (70-99(Fasting)) mg/dl POC Glucose 87 (70-99) mg/dl Estimat Average Glucose Pending Hemoglobin A1c Pending Lactate (0.4-2.0) mmol/L Calcium 9.3 (8.6-10.3) mg/dl Magnesium 2.1 (1.7-2.4) mg/dl Total Bilirubin 0.5 (0.2-1.0) mg/dl Direct Bilirubin (0-0.2) mg/dl AST 13 (13-39) U/L ALT 11 (7-52) U/L Alkaline Phosphatase 54 (34-104) U/L Troponin I High Sens (0-20) pg/ml C-Reactive Protein (0-0.5) mg/dl B-Natriuretic Peptide (0-100) pg/ml Total Protein 6.9 (6.0-8.3) gm/dl Albumin 3.9 (3.4-5.0) gm/dl Globulin 3.0 (2.5-4.0) gm/dl Albumin/Globulin Ratio 1.3 (0.9-2) Procalcitonin (0-0.5) ng/ml Urine Color Urine Appearance (Clear) Urine pH (4.5-7.5) Ur Specific [place] (1.000-1.030) Urine Protein (Negative) Urine Glucose (UA) (Negative) Urine Ketones (Negative) Urine Blood (Negative) Urine Nitrite (Negative) Urine Bilirubin (Negative) Urine Urobilinogen (Negative) Ur Leukocyte Esterase (Negative) Urine WBC (Auto) (0-5) /hpf Urine RBC (Auto) (0-4) /hpf U Hyaline Cast (Auto) (0-5) /lpf U Epithel Cells (Auto) (0-5) /lpf Urine Bacteria (Auto) (Negative) Nasal Screen MRSA (PCR) (Negative) SARS-CoV-2 (PCR) (Negative) Influenza Type A (PCR) (Neg) Influenza Type B (PCR) (Neg) RSV (RT-PCR) (Neg) 12/06/22 12/05/22 12/05/22 Range/Units 06:11 20:12 19:05 WBC 8.74 (4.8-10.8) K/ul RBC 3.86 L (4.70-6.10) M/uL Hgb 13.2 L (14.0-18.0) g/dl Hct 37.9 L (42.0-52.0) % MCV 98.2 (80.0-100.0) fL MCH 34.2 H (25.0-34.0) pg MCHC 34.8 (32.0-36.0) g/dL RDW Std Deviation 50.4 H (36.4-46.3) fL RDW Coeff of [place]en 14.1 (11.5-14.5) % Plt Count 259 (130-400) K/uL MPV 8.9 L (9.4-12.4) fL Immature Gran % (Auto) 0.6 % Neut % (Auto) 74.2 % Lymph % (Auto) 12.6 % Lewis % (Auto) 10.3 % Eos % (Auto) 1.5 % Baso % (Auto) 0.8 % Neut # (Auto) 6.49 (1.40-6.50) K/uL Lymph # (Auto) 1.10 L (1.2-3.4) K/uL Lewis # (Auto) 0.90 H (0.11-0.59) K/uL Eos # (Auto) 0.13 (0-0.50) K/uL Baso # (Auto) 0.07 (0-0.2) K/uL Immature Gran # (Auto) 0.05 (0.01-0.20) K/uL PT (9.0-12.0) Seconds INR (0.9-1.1) Sodium (136-145) mmol/L Potassium (3.5-5.1) mmol/L Chloride (98-107) mmol/L Carbon Dioxide (21-32) mmol/L Anion Gap (3-11) BUN (6-23) mg/dl Creatinine (0.6-1.4) mg/dl Est Cr Clr Drug Dosing Est GFR ( Amer) ml/min Est GFR (Non-Af Amer) ml/min BUN/Creatinine Ratio (10-20) Glucose (70-99(Fasting)) mg/dl POC Glucose 107 H (70-99) mg/dl Estimat Average Glucose Hemoglobin A1c Lactate (0.4-2.0) mmol/L Calcium (8.6-10.3) mg/dl Magnesium (1.7-2.4) mg/dl Total Bilirubin (0.2-1.0) mg/dl Direct Bilirubin (0-0.2) mg/dl AST (13-39) U/L ALT (7-52) U/L Alkaline Phosphatase (34-104) U/L Troponin I High Sens (0-20) pg/ml C-Reactive Protein (0-0.5) mg/dl B-Natriuretic Peptide (0-100) pg/ml Total Protein (6.0-8.3) gm/dl Albumin (3.4-5.0) gm/dl Globulin (2.5-4.0) gm/dl Albumin/Globulin Ratio (0.9-2) Procalcitonin (0-0.5) ng/ml Urine Color Urine Appearance (Clear) Urine pH (4.5-7.5) Ur Specific [place] (1.000-1.030) Urine Protein (Negative) Urine Glucose (UA) (Negative) Urine Ketones (Negative) Urine Blood (Negative) Urine Nitrite (Negative) Urine Bilirubin (Negative) Urine Urobilinogen (Negative) Ur Leukocyte Esterase (Negative) Urine WBC (Auto) (0-5) /hpf Urine RBC (Auto) (0-4) /hpf U Hyaline Cast (Auto) (0-5) /lpf U Epithel Cells (Auto) (0-5) /lpf Urine Bacteria (Auto) (Negative) Nasal Screen MRSA (PCR) Negative (Negative) SARS-CoV-2 (PCR) (Negative) Influenza Type A (PCR) (Neg) Influenza Type B (PCR) (Neg) RSV (RT-PCR) (Neg) 12/05/22 12/05/22 12/05/22 Range/Units 14:03 14:03 14:00 WBC (4.8-10.8) K/ul RBC (4.70-6.10) M/uL Hgb (14.0-18.0) g/dl Hct (42.0-52.0) % MCV (80.0-100.0) fL MCH (25.0-34.0) pg MCHC (32.0-36.0) g/dL RDW Std Deviation (36.4-46.3) fL RDW Coeff of Landen (11.5-14.5) % Plt Count (130-400) K/uL MPV (9.4-12.4) fL Immature Gran % (Auto) % Neut % (Auto) % Lymph % (Auto) % Lewis % (Auto) % Eos % (Auto) % Baso % (Auto) % Neut # (Auto) (1.40-6.50) K/uL Lymph # (Auto) (1.2-3.4) K/uL Lewis # (Auto) (0.11-0.59) K/uL Eos # (Auto) (0-0.50) K/uL Baso # (Auto) (0-0.2) K/uL Immature Gran # (Auto) (0.01-0.20) K/uL PT 11.3 (9.0-12.0) Seconds INR 1.1 (0.9-1.1) Sodium (136-145) mmol/L Potassium (3.5-5.1) mmol/L Chloride (98-107) mmol/L Carbon Dioxide (21-32) mmol/L Anion Gap (3-11) BUN (6-23) mg/dl Creatinine (0.6-1.4) mg/dl Est Cr Clr Drug Dosing Est GFR ( Amer) ml/min Est GFR (Non-Af Amer) ml/min BUN/Creatinine Ratio (10-20) Glucose (70-99(Fasting)) mg/dl POC Glucose (70-99) mg/dl Estimat Average Glucose Hemoglobin A1c Lactate (0.4-2.0) mmol/L Calcium (8.6-10.3) mg/dl Magnesium (1.7-2.4) mg/dl Total Bilirubin (0.2-1.0) mg/dl Direct Bilirubin (0-0.2) mg/dl AST (13-39) U/L ALT (7-52) U/L Alkaline Phosphatase (34-104) U/L Troponin I High Sens (0-20) pg/ml C-Reactive Protein (0-0.5) mg/dl B-Natriuretic Peptide (0-100) pg/ml Total Protein (6.0-8.3) gm/dl Albumin (3.4-5.0) gm/dl Globulin (2.5-4.0) gm/dl Albumin/Globulin Ratio (0.9-2) Procalcitonin (0-0.5) ng/ml Urine Color Yellow Urine Appearance Clear (Clear) Urine pH 5.5 (4.5-7.5) Ur Specific [place] 1.017 (1.000-1.030) Urine Protein 1+ H (Negative) Urine Glucose (UA) Trace H (Negative) Urine Ketones Negative (Negative) Urine Blood Negative (Negative) Urine Nitrite Negative (Negative) Urine Bilirubin Negative (Negative) Urine Urobilinogen Negative (Negative) Ur Leukocyte Esterase Negative (Negative) Urine WBC (Auto) 1-5 (0-5) /hpf Urine RBC (Auto) 0-4 (0-4) /hpf U Hyaline Cast (Auto) 1-5 (0-5) /lpf U Epithel Cells (Auto) 5-10 H (0-5) /lpf Urine Bacteria (Auto) Negative (Negative) Nasal Screen MRSA (PCR) (Negative) SARS-CoV-2 (PCR) NEGATIVE (Negative) Influenza Type A (PCR) Negative (Neg) Influenza Type B (PCR) Negative (Neg) RSV (RT-PCR) Negative (Neg) 12/05/22 12/05/22 12/05/22 Range/Units 14:00 14:00 14:00 WBC 11.82 H (4.8-10.8) K/ul RBC 3.95 L (4.70-6.10) M/uL Hgb 13.4 L (14.0-18.0) g/dl Hct 37.7 L (42.0-52.0) % MCV 95.4 (80.0-100.0) fL MCH 33.9 (25.0-34.0) pg MCHC 35.5 (32.0-36.0) g/dL RDW Std Deviation 47.7 H (36.4-46.3) fL RDW Coeff of Landen 13.7 (11.5-14.5) % Plt Count 288 (130-400) K/uL MPV 8.9 L (9.4-12.4) fL Immature Gran % (Auto) 1.0 % Neut % (Auto) 87.8 % Lymph % (Auto) 4.6 % Lewis % (Auto) 6.1 % Eos % (Auto) 0.3 % Baso % (Auto) 0.2 % Neut # (Auto) 10.39 H (1.40-6.50) K/uL Lymph # (Auto) 0.54 L (1.2-3.4) K/uL Lewis # (Auto) 0.72 H (0.11-0.59) K/uL Eos # (Auto) 0.03 (0-0.50) K/uL Baso # (Auto) 0.02 (0-0.2) K/uL Immature Gran # (Auto) 0.12 (0.01-0.20) K/uL PT (9.0-12.0) Seconds INR (0.9-1.1) Sodium (136-145) mmol/L Potassium (3.5-5.1) mmol/L Chloride (98-107) mmol/L Carbon Dioxide (21-32) mmol/L Anion Gap (3-11) BUN (6-23) mg/dl Creatinine (0.6-1.4) mg/dl Est Cr Clr Drug Dosing Est GFR ( Amer) ml/min Est GFR (Non-Af Amer) ml/min BUN/Creatinine Ratio (10-20) Glucose (70-99(Fasting)) mg/dl POC Glucose (70-99) mg/dl Estimat Average Glucose Hemoglobin A1c Lactate (0.4-2.0) mmol/L Calcium (8.6-10.3) mg/dl Magnesium (1.7-2.4) mg/dl Total Bilirubin (0.2-1.0) mg/dl Direct Bilirubin (0-0.2) mg/dl AST (13-39) U/L ALT (7-52) U/L Alkaline Phosphatase (34-104) U/L Troponin I High Sens (0-20) pg/ml C-Reactive Protein (0-0.5) mg/dl B-Natriuretic Peptide 274 H (0-100) pg/ml Total Protein (6.0-8.3) gm/dl Albumin (3.4-5.0) gm/dl Globulin (2.5-4.0) gm/dl Albumin/Globulin Ratio (0.9-2) Procalcitonin 0.08 (0-0.5) ng/ml Urine Color Urine Appearance (Clear) Urine pH (4.5-7.5) Ur Specific [place] (1.000-1.030) Urine Protein (Negative) Urine Glucose (UA) (Negative) Urine Ketones (Negative) Urine Blood (Negative) Urine Nitrite (Negative) Urine Bilirubin (Negative) Urine Urobilinogen (Negative) Ur Leukocyte Esterase (Negative) Urine WBC (Auto) (0-5) /hpf Urine RBC (Auto) (0-4) /hpf U Hyaline Cast (Auto) (0-5) /lpf U Epithel Cells (Auto) (0-5) /lpf Urine Bacteria (Auto) (Negative) Nasal Screen MRSA (PCR) (Negative) SARS-CoV-2 (PCR) (Negative) Influenza Type A (PCR) (Neg) Influenza Type B (PCR) (Neg) RSV (RT-PCR) (Neg) 12/05/22 12/05/22 Range/Units 14:00 14:00 WBC (4.8-10.8) K/ul RBC (4.70-6.10) M/uL Hgb (14.0-18.0) g/dl Hct (42.0-52.0) % MCV (80.0-100.0) fL MCH (25.0-34.0) pg MCHC (32.0-36.0) g/dL RDW Std Deviation (36.4-46.3) fL RDW Coeff of Landen (11.5-14.5) % Plt Count (130-400) K/uL MPV (9.4-12.4) fL Immature Gran % (Auto) % Neut % (Auto) % Lymph % (Auto) % Lewis % (Auto) % Eos % (Auto) % Baso % (Auto) % Neut # (Auto) (1.40-6.50) K/uL Lymph # (Auto) (1.2-3.4) K/uL Lewis # (Auto) (0.11-0.59) K/uL Eos # (Auto) (0-0.50) K/uL Baso # (Auto) (0-0.2) K/uL Immature Gran # (Auto) (0.01-0.20) K/uL PT (9.0-12.0) Seconds INR (0.9-1.1) Sodium 128 L (136-145) mmol/L Potassium 4.6 (3.5-5.1) mmol/L Chloride 97 L (98-107) mmol/L Carbon Dioxide 24 (21-32) mmol/L Anion Gap 7 (3-11) BUN 28 H (6-23) mg/dl Creatinine 1.46 H (0.6-1.4) mg/dl Est Cr Clr Drug Dosing Not Reportable Est GFR ( Amer) 55.3 ml/min Est GFR (Non-Af Amer) 47.7 ml/min BUN/Creatinine Ratio 19.2 (10-20) Glucose 135 H (70-99(Fasting)) mg/dl POC Glucose (70-99) mg/dl Estimat Average Glucose Hemoglobin A1c Lactate 1.1 (0.4-2.0) mmol/L Calcium 9.6 (8.6-10.3) mg/dl Magnesium 2.1 (1.7-2.4) mg/dl Total Bilirubin 0.6 (0.2-1.0) mg/dl Direct Bilirubin 0.1 (0-0.2) mg/dl AST 15 (13-39) U/L ALT 14 (7-52) U/L Alkaline Phosphatase 69 (34-104) U/L Troponin I High Sens 11.0 (0-20) pg/ml C-Reactive Protein 2.41 H (0-0.5) mg/dl B-Natriuretic Peptide (0-100) pg/ml Total Protein 7.6 (6.0-8.3) gm/dl Albumin 4.2 (3.4-5.0) gm/dl Globulin (2.5-4.0) gm/dl Albumin/Globulin Ratio (0.9-2) Procalcitonin (0-0.5) ng/ml Urine Color Urine Appearance (Clear) Urine pH (4.5-7.5) Ur Specific [place] (1.000-1.030) Urine Protein (Negative) Urine Glucose (UA) (Negative) Urine Ketones (Negative) Urine Blood (Negative) Urine Nitrite (Negative) Urine Bilirubin (Negative) Urine Urobilinogen (Negative) Ur Leukocyte Esterase (Negative) Urine WBC (Auto) (0-5) /hpf Urine RBC (Auto) (0-4) /hpf U Hyaline Cast (Auto) (0-5) /lpf U Epithel Cells (Auto) (0-5) /lpf Urine Bacteria (Auto) (Negative) Nasal Screen MRSA (PCR) (Negative) SARS-CoV-2 (PCR) (Negative) Influenza Type A (PCR) (Neg) Influenza Type B (PCR) (Neg) RSV (RT-PCR) (Neg) Medications Administered 12/06/22 12/06/22 12/06/22 Range/Units 07:25 06:11 06:11 WBC (4.8-10.8) K/ul RBC (4.70-6.10) M/uL Hgb (14.0-18.0) g/dl Hct (42.0-52.0) % MCV (80.0-100.0) fL MCH (25.0-34.0) pg MCHC (32.0-36.0) g/dL RDW Std Deviation (36.4-46.3) fL RDW Coeff of Landen (11.5-14.5) % Plt Count (130-400) K/uL MPV (9.4-12.4) fL Immature Gran % (Auto) % Neut % (Auto) % Lymph % (Auto) % Lewis % (Auto) % Eos % (Auto) % Baso % (Auto) % Neut # (Auto) (1.40-6.50) K/uL Lymph # (Auto) (1.2-3.4) K/uL Lewis # (Auto) (0.11-0.59) K/uL Eos # (Auto) (0-0.50) K/uL Baso # (Auto) (0-0.2) K/uL Immature Gran # (Auto) (0.01-0.20) K/uL PT (9.0-12.0) Seconds INR (0.9-1.1) Sodium 135 L (136-145) mmol/L Potassium 4.8 (3.5-5.1) mmol/L Chloride 103 (98-107) mmol/L Carbon Dioxide 25 (21-32) mmol/L Anion Gap 7 (3-11) BUN 21 (6-23) mg/dl Creatinine 1.34 (0.6-1.4) mg/dl Est Cr Clr Drug Dosing 61.0 Est GFR ( Amer) 61.3 ml/min Est GFR (Non-Af Amer) 52.9 ml/min BUN/Creatinine Ratio 15.7 (10-20) Glucose 98 (70-99(Fasting)) mg/dl POC Glucose 87 (70-99) mg/dl Estimat Average Glucose Pending Hemoglobin A1c Pending Lactate (0.4-2.0) mmol/L Calcium 9.3 (8.6-10.3) mg/dl Magnesium 2.1 (1.7-2.4) mg/dl Total Bilirubin 0.5 (0.2-1.0) mg/dl Direct Bilirubin (0-0.2) mg/dl AST 13 (13-39) U/L ALT 11 (7-52) U/L Alkaline Phosphatase 54 (34-104) U/L Troponin I High Sens (0-20) pg/ml C-Reactive Protein (0-0.5) mg/dl B-Natriuretic Peptide (0-100) pg/ml Total Protein 6.9 (6.0-8.3) gm/dl Albumin 3.9 (3.4-5.0) gm/dl Globulin 3.0 (2.5-4.0) gm/dl Albumin/Globulin Ratio 1.3 (0.9-2) Procalcitonin (0-0.5) ng/ml Urine Color Urine Appearance (Clear) Urine pH (4.5-7.5) Ur Specific [place] (1.000-1.030) Urine Protein (Negative) Urine Glucose (UA) (Negative) Urine Ketones (Negative) Urine Blood (Negative) Urine Nitrite (Negative) Urine Bilirubin (Negative) Urine Urobilinogen (Negative) Ur Leukocyte Esterase (Negative) Urine WBC (Auto) (0-5) /hpf Urine RBC (Auto) (0-4) /hpf U Hyaline Cast (Auto) (0-5) /lpf U Epithel Cells (Auto) (0-5) /lpf Urine Bacteria (Auto) (Negative) Nasal Screen MRSA (PCR) (Negative) SARS-CoV-2 (PCR) (Negative) Influenza Type A (PCR) (Neg) Influenza Type B (PCR) (Neg) RSV (RT-PCR) (Neg) 12/06/22 12/05/22 12/05/22 Range/Units 06:11 20:12 19:05 WBC 8.74 (4.8-10.8) K/ul RBC 3.86 L (4.70-6.10) M/uL Hgb 13.2 L (14.0-18.0) g/dl Hct 37.9 L (42.0-52.0) % MCV 98.2 (80.0-100.0) fL MCH 34.2 H (25.0-34.0) pg MCHC 34.8 (32.0-36.0) g/dL RDW Std Deviation 50.4 H (36.4-46.3) fL RDW Coeff of Landen 14.1 (11.5-14.5) % Plt Count 259 (130-400) K/uL MPV 8.9 L (9.4-12.4) fL Immature Gran % (Auto) 0.6 % Neut % (Auto) 74.2 % Lymph % (Auto) 12.6 % Lewis % (Auto) 10.3 % Eos % (Auto) 1.5 % Baso % (Auto) 0.8 % Neut # (Auto) 6.49 (1.40-6.50) K/uL Lymph # (Auto) 1.10 L (1.2-3.4) K/uL Lewis # (Auto) 0.90 H (0.11-0.59) K/uL Eos # (Auto) 0.13 (0-0.50) K/uL Baso # (Auto) 0.07 (0-0.2) K/uL Immature Gran # (Auto) 0.05 (0.01-0.20) K/uL PT (9.0-12.0) Seconds INR (0.9-1.1) Sodium (136-145) mmol/L Potassium (3.5-5.1) mmol/L Chloride (98-107) mmol/L Carbon Dioxide (21-32) mmol/L Anion Gap (3-11) BUN (6-23) mg/dl Creatinine (0.6-1.4) mg/dl Est Cr Clr Drug Dosing Est GFR ( Amer) ml/min Est GFR (Non-Af Amer) ml/min BUN/Creatinine Ratio (10-20) Glucose (70-99(Fasting)) mg/dl POC Glucose 107 H (70-99) mg/dl Estimat Average Glucose Hemoglobin A1c Lactate (0.4-2.0) mmol/L Calcium (8.6-10.3) mg/dl Magnesium (1.7-2.4) mg/dl Total Bilirubin (0.2-1.0) mg/dl Direct Bilirubin (0-0.2) mg/dl AST (13-39) U/L ALT (7-52) U/L Alkaline Phosphatase (34-104) U/L Troponin I High Sens (0-20) pg/ml C-Reactive Protein (0-0.5) mg/dl B-Natriuretic Peptide (0-100) pg/ml Total Protein (6.0-8.3) gm/dl Albumin (3.4-5.0) gm/dl Globulin (2.5-4.0) gm/dl Albumin/Globulin Ratio (0.9-2) Procalcitonin (0-0.5) ng/ml Urine Color Urine Appearance (Clear) Urine pH (4.5-7.5) Ur Specific [place] (1.000-1.030) Urine Protein (Negative) Urine Glucose (UA) (Negative) Urine Ketones (Negative) Urine Blood (Negative) Urine Nitrite (Negative) Urine Bilirubin (Negative) Urine Urobilinogen (Negative) Ur Leukocyte Esterase (Negative) Urine WBC (Auto) (0-5) /hpf Urine RBC (Auto) (0-4) /hpf U Hyaline Cast (Auto) (0-5) /lpf U Epithel Cells (Auto) (0-5) /lpf Urine Bacteria (Auto) (Negative) Nasal Screen MRSA (PCR) Negative (Negative) SARS-CoV-2 (PCR) (Negative) Influenza Type A (PCR) (Neg) Influenza Type B (PCR) (Neg) RSV (RT-PCR) (Neg) 12/05/22 12/05/22 12/05/22 Range/Units 14:03 14:03 14:00 WBC (4.8-10.8) K/ul RBC (4.70-6.10) M/uL Hgb (14.0-18.0) g/dl Hct (42.0-52.0) % MCV (80.0-100.0) fL MCH (25.0-34.0) pg MCHC (32.0-36.0) g/dL RDW Std Deviation (36.4-46.3) fL RDW Coeff of Landen (11.5-14.5) % Plt Count (130-400) K/uL MPV (9.4-12.4) fL Immature Gran % (Auto) % Neut % (Auto) % Lymph % (Auto) % Lewis % (Auto) % Eos % (Auto) % Baso % (Auto) % Neut # (Auto) (1.40-6.50) K/uL Lymph # (Auto) (1.2-3.4) K/uL Lewis # (Auto) (0.11-0.59) K/uL Eos # (Auto) (0-0.50) K/uL Baso # (Auto) (0-0.2) K/uL Immature Gran # (Auto) (0.01-0.20) K/uL PT 11.3 (9.0-12.0) Seconds INR 1.1 (0.9-1.1) Sodium (136-145) mmol/L Potassium (3.5-5.1) mmol/L Chloride (98-107) mmol/L Carbon Dioxide (21-32) mmol/L Anion Gap (3-11) BUN (6-23) mg/dl Creatinine (0.6-1.4) mg/dl Est Cr Clr Drug Dosing Est GFR ( Amer) ml/min Est GFR (Non-Af Amer) ml/min BUN/Creatinine Ratio (10-20) Glucose (70-99(Fasting)) mg/dl POC Glucose (70-99) mg/dl Estimat Average Glucose Hemoglobin A1c Lactate (0.4-2.0) mmol/L Calcium (8.6-10.3) mg/dl Magnesium (1.7-2.4) mg/dl Total Bilirubin (0.2-1.0) mg/dl Direct Bilirubin (0-0.2) mg/dl AST (13-39) U/L ALT (7-52) U/L Alkaline Phosphatase (34-104) U/L Troponin I High Sens (0-20) pg/ml C-Reactive Protein (0-0.5) mg/dl B-Natriuretic Peptide (0-100) pg/ml Total Protein (6.0-8.3) gm/dl Albumin (3.4-5.0) gm/dl Globulin (2.5-4.0) gm/dl Albumin/Globulin Ratio (0.9-2) Procalcitonin (0-0.5) ng/ml Urine Color Yellow Urine Appearance Clear (Clear) Urine pH 5.5 (4.5-7.5) Ur Specific [place] 1.017 (1.000-1.030) Urine Protein 1+ H (Negative) Urine Glucose (UA) Trace H (Negative) Urine Ketones Negative (Negative) Urine Blood Negative (Negative) Urine Nitrite Negative (Negative) Urine Bilirubin Negative (Negative) Urine Urobilinogen Negative (Negative) Ur Leukocyte Esterase Negative (Negative) Urine WBC (Auto) 1-5 (0-5) /hpf Urine RBC (Auto) 0-4 (0-4) /hpf U Hyaline Cast (Auto) 1-5 (0-5) /lpf U Epithel Cells (Auto) 5-10 H (0-5) /lpf Urine Bacteria (Auto) Negative (Negative) Nasal Screen MRSA (PCR) (Negative) SARS-CoV-2 (PCR) NEGATIVE (Negative) Influenza Type A (PCR) Negative (Neg) Influenza Type B (PCR) Negative (Neg) RSV (RT-PCR) Negative (Neg) 12/05/22 12/05/22 12/05/22 Range/Units 14:00 14:00 14:00 WBC 11.82 H (4.8-10.8) K/ul RBC 3.95 L (4.70-6.10) M/uL Hgb 13.4 L (14.0-18.0) g/dl Hct 37.7 L (42.0-52.0) % MCV 95.4 (80.0-100.0) fL MCH 33.9 (25.0-34.0) pg MCHC 35.5 (32.0-36.0) g/dL RDW Std Deviation 47.7 H (36.4-46.3) fL RDW Coeff of Landen 13.7 (11.5-14.5) % Plt Count 288 (130-400) K/uL MPV 8.9 L (9.4-12.4) fL Immature Gran % (Auto) 1.0 % Neut % (Auto) 87.8 % Lymph % (Auto) 4.6 % Lewis % (Auto) 6.1 % Eos % (Auto) 0.3 % Baso % (Auto) 0.2 % Neut # (Auto) 10.39 H (1.40-6.50) K/uL Lymph # (Auto) 0.54 L (1.2-3.4) K/uL Lewis # (Auto) 0.72 H (0.11-0.59) K/uL Eos # (Auto) 0.03 (0-0.50) K/uL Baso # (Auto) 0.02 (0-0.2) K/uL Immature Gran # (Auto) 0.12 (0.01-0.20) K/uL PT (9.0-12.0) Seconds INR (0.9-1.1) Sodium (136-145) mmol/L Potassium (3.5-5.1) mmol/L Chloride (98-107) mmol/L Carbon Dioxide (21-32) mmol/L Anion Gap (3-11) BUN (6-23) mg/dl Creatinine (0.6-1.4) mg/dl Est Cr Clr Drug Dosing Est GFR ( Amer) ml/min Est GFR (Non-Af Amer) ml/min BUN/Creatinine Ratio (10-20) Glucose (70-99(Fasting)) mg/dl POC Glucose (70-99) mg/dl Estimat Average Glucose Hemoglobin A1c Lactate (0.4-2.0) mmol/L Calcium (8.6-10.3) mg/dl Magnesium (1.7-2.4) mg/dl Total Bilirubin (0.2-1.0) mg/dl Direct Bilirubin (0-0.2) mg/dl AST (13-39) U/L ALT (7-52) U/L Alkaline Phosphatase (34-104) U/L Troponin I High Sens (0-20) pg/ml C-Reactive Protein (0-0.5) mg/dl B-Natriuretic Peptide 274 H (0-100) pg/ml Total Protein (6.0-8.3) gm/dl Albumin (3.4-5.0) gm/dl Globulin (2.5-4.0) gm/dl Albumin/Globulin Ratio (0.9-2) Procalcitonin 0.08 (0-0.5) ng/ml Urine Color Urine Appearance (Clear) Urine pH (4.5-7.5) Ur Specific [place] (1.000-1.030) Urine Protein (Negative) Urine Glucose (UA) (Negative) Urine Ketones (Negative) Urine Blood (Negative) Urine Nitrite (Negative) Urine Bilirubin (Negative) Urine Urobilinogen (Negative) Ur Leukocyte Esterase (Negative) Urine WBC (Auto) (0-5) /hpf Urine RBC (Auto) (0-4) /hpf U Hyaline Cast (Auto) (0-5) /lpf U Epithel Cells (Auto) (0-5) /lpf Urine Bacteria (Auto) (Negative) Nasal Screen MRSA (PCR) (Negative) SARS-CoV-2 (PCR) (Negative) Influenza Type A (PCR) (Neg) Influenza Type B (PCR) (Neg) RSV (RT-PCR) (Neg) 12/05/22 12/05/22 Range/Units 14:00 14:00 WBC (4.8-10.8) K/ul RBC (4.70-6.10) M/uL Hgb (14.0-18.0) g/dl Hct (42.0-52.0) % MCV (80.0-100.0) fL MCH (25.0-34.0) pg MCHC (32.0-36.0) g/dL RDW Std Deviation (36.4-46.3) fL RDW Coeff of Landen (11.5-14.5) % Plt Count (130-400) K/uL MPV (9.4-12.4) fL Immature Gran % (Auto) % Neut % (Auto) % Lymph % (Auto) % Lewis % (Auto) % Eos % (Auto) % Baso % (Auto) % Neut # (Auto) (1.40-6.50) K/uL Lymph # (Auto) (1.2-3.4) K/uL Lewis # (Auto) (0.11-0.59) K/uL Eos # (Auto) (0-0.50) K/uL Baso # (Auto) (0-0.2) K/uL Immature Gran # (Auto) (0.01-0.20) K/uL PT (9.0-12.0) Seconds INR (0.9-1.1) Sodium 128 L (136-145) mmol/L Potassium 4.6 (3.5-5.1) mmol/L Chloride 97 L (98-107) mmol/L Carbon Dioxide 24 (21-32) mmol/L Anion Gap 7 (3-11) BUN 28 H (6-23) mg/dl Creatinine 1.46 H (0.6-1.4) mg/dl Est Cr Clr Drug Dosing Not Reportable Est GFR ( Amer) 55.3 ml/min Est GFR (Non-Af Amer) 47.7 ml/min BUN/Creatinine Ratio 19.2 (10-20) Glucose 135 H (70-99(Fasting)) mg/dl POC Glucose (70-99) mg/dl Estimat Average Glucose Hemoglobin A1c Lactate 1.1 (0.4-2.0) mmol/L Calcium 9.6 (8.6-10.3) mg/dl Magnesium 2.1 (1.7-2.4) mg/dl Total Bilirubin 0.6 (0.2-1.0) mg/dl Direct Bilirubin 0.1 (0-0.2) mg/dl AST 15 (13-39) U/L ALT 14 (7-52) U/L Alkaline Phosphatase 69 (34-104) U/L Troponin I High Sens 11.0 (0-20) pg/ml C-Reactive Protein 2.41 H (0-0.5) mg/dl B-Natriuretic Peptide (0-100) pg/ml Total Protein 7.6 (6.0-8.3) gm/dl Albumin 4.2 (3.4-5.0) gm/dl Globulin (2.5-4.0) gm/dl Albumin/Globulin Ratio (0.9-2) Procalcitonin (0-0.5) ng/ml Urine Color Urine Appearance (Clear) Urine pH (4.5-7.5) Ur Specific [place] (1.000-1.030) Urine Protein (Negative) Urine Glucose (UA) (Negative) Urine Ketones (Negative) Urine Blood (Negative) Urine Nitrite (Negative) Urine Bilirubin (Negative) Urine Urobilinogen (Negative) Ur Leukocyte Esterase (Negative) Urine WBC (Auto) (0-5) /hpf Urine RBC (Auto) (0-4) /hpf U Hyaline Cast (Auto) (0-5) /lpf U Epithel Cells (Auto) (0-5) /lpf Urine Bacteria (Auto) (Negative) Nasal Screen MRSA (PCR) (Negative) SARS-CoV-2 (PCR) (Negative) Influenza Type A (PCR) (Neg) Influenza Type B (PCR) (Neg) RSV (RT-PCR) (Neg) (1) Wound, open, foot Encounter type: initial encounter Laterality: left Qualified Code(s): S91.302A - Unspecified open wound, left foot, initial encounter (2) Cellulitis Laterality: left Site of cellulitis: extremity Site of cellulitis of extremity: lower extremity Qualified Code(s): L03.116 - Cellulitis of left lower limb (7) CKD (chronic kidney disease), stage III Chronic kidney disease stage 3 subtype: unspecified whether 3a or 3b Qualified Code(s): N18.30 - Chronic kidney disease, stage 3 unspecified
--- NOTE | 2022-12-06 08:18 | Orthopedic Consultation ---
Date of Service December 06, 2022 Assessment & Plan (1) Ischemic necrosis of toe: I talked to Pj at bedside about diagnosis and treatment options. This is possibly an ischemic issue. He will likely need a vascular consultation given his history of cardiovascular disease. We need to make sure there is good p erfusion to the foot. He is scheduled to have an MRI of his foot today. He does not want an amputation of his toe. I think we need to get some more information first before we have a more educated discussion. If it is more of an ischemic issue, I will leave it in the hands of the vascular surgeons. I did speak with the hospitalist. She will keep him on IV antibiotics. He can have a diet today. We will await the MRI studies and a vascular consultation. History of Present Illness Reason for Consultation: Ischemic left great toe. Requesting Physician: . Attending Physician: Kevin Jacome MD Pj is a pleasant 72-year-old male with a history of cardiovascular disease. He is also a controlled type II diabetic he is not currently on any medications. His most recent A1c was 6.5. For the last several weeks he has noticed increased pain in his left foot. He has noticed ischemia of his left great toe extending into his second toe. At times there would be a little bit of purulent discharge. He came to the emergency room. X-rays of his left foot were negative for osteomyelitis. A venous Doppler was negative for DVT. He was admitted to the medical service. Orthopedics was consulted to evaluate and treat. Allergies Allergy/AdvReac Type Severity Reaction Status Date / Time No Known Allergies Allergy Unverified 12/05/22 16:10 Home Medications Medication Instructions Recorded Confirmed Type allopurinol 300 mg tablet 300 mg PO QAM 12/05/22 12/05/22 History aspirin 81 mg tablet,delayed 81 mg PO DAILY 12/05/22 12/05/22 History release lisinopril 20 mg tablet 20 mg PO QAM 12/05/22 12/05/22 History meloxicam 15 mg tablet 15 mg PO QAM 12/05/22 12/05/22 History metoprolol tartrate 25 mg tablet 25 mg PO BID 12/05/22 12/05/22 History prednisone 5 mg tablet 5 mg PO QAM 12/05/22 12/05/22 History simvastatin 20 mg tablet 20 mg PO QPM 12/05/22 12/05/22 History Past Med/Surg History Medical History Afib CAD (coronary artery disease) Chronic gout CKD (chronic kidney disease), stage III Diabetes type 2, controlled HTN (hypertension) Tophi gouty Surgical History S/P angioplasty with stent Social History Smoking Status: Never smoker Hx Alcohol Use: Yes Alcohol type: beer Hx Substance Use: No Preferred Language: Hungarian Secure Software Assessor Required: No Beliefs That Will Affect Care: None Current Living Situation: Alone Feels Safe at Home: Yes Assistive Devices: Cane, Denture - Upper, Denture - Lower and Glasses Review of Systems All systems reviewed & are unremarkable except as noted in HPI & below. Physical Exam . Results & Data Results & Data Laboratory Results . Diagnostic Findings X-rays of the left foot show no signs of osteomyelitis. He has some arthritis but otherwise the x-rays are negative.. PG Care Time/CCT Total # of Minutes Spent Total Time Spent with Patient: Total time spent is greater than 50% in coordination of care (as documented) at patient's floor/unit and/or counseling patient: Coding Level of Care Code 64767 IN/OBS CONSULT LVL 4,60M Diagnoses Ischemic necrosis of toe I96
[2022-12-06] MEDS ORDERED: GADOBUTROL 65ML VIAL IV ONE (09:43)
--- NOTE | 2022-12-06 10:49 | Magnetic Resonance Report ---
MR foot LT wo/w con CLINICAL HISTORY: L great toe wound TECHNIQUE: Multiplanar multisequence MR images of the left foot were obtained. Comparison: Comparison is made to left foot 12/05/2022 FINDINGS: Bones: There is diffusely increased T1 signal throughout the digits on fat-suppressed imaging which m ay in part reflect failure of fat suppression. There is no definite bony edema in the first digit on T1 imaging. Tendons: Unremarkable Soft tissue: Soft tissue edema is noted about the first digit and dorsal and lateral soft tissues. IMPRESSION: Soft tissue edema is seen compatible with cellulitis. There is diffuse increased signal in the distal digits which is likely due to failure of fat suppression. No definite first digit osteomyelitis is s een. If clinical concern remains, study may be required with the first digit at the center of the fie ld of view. ACT 112: Negative or not required by law. Electronically signed by: Madi Carmen M.D. 12/06/2022 10:47 AM
[2022-12-06] MEDS: oxyCODONE HCL IR 5 MG TAB (IMMEDIATE RELEASE) PO PRN ×3 (11:18→21:40)
--- NOTE | 2022-12-06 12:16 | Pharmacy Report ---
Pharmacy PK ABX Note - Date of Service December 06, 2022 - Assessment and Plan Assessment * 72 year old M receiving Zosyn and vancomycin for treatment of diabetic foot ulcer. MRI without definite evidence of osteomyelitis, but repeat MRI may also be indicated * Pertinent microbiologic data includes: blood and toe cultures pending * SCr improving slightly today Plan Vancomycin * Loading dose: 2500 mg IV x 1 * Maintenance dose: 1500 mg IV every 24 hours * Regimen is predicted to achieve target AUC/PIERCE of 400-600 mg/L.hr * Random level ordered for: 4/3 w AM labs Pharmacy will continue to follow and will adjust dose/frequency as necessary. Thank you. Pharmacy has transitioned to AUC monitoring for vancomycin. AUC/PIERCE is the preferred PK/PD target and is associated with decreased risk of nephrotoxicity compared to traditional trough targets.
[2022-12-06] MEDS ORDERED: VANCOMYCIN HCL 1,500 MG in SODIUM CHLORIDE 0.9% 500 ML IV SCH (16:00)
[2022-12-06] MEDS: SIMVASTATIN 20 MG TAB PO SCH (20:02)
[2022-12-06] MEDS: ENOXAPARIN INJ 40 MG/0.4 ML SYR SQ SCH (20:02)
[2022-12-07] MEDS: ACETAMINOPHEN 325 MG TAB PO PRN ×3 (00:22→16:18)
[2022-12-07] MEDS: MoRPHine SULFATE 2 MG/ML CARP IV PRN ×3 (02:15→19:24)
[2022-12-07] MEDS: oxyCODONE HCL IR 5 MG TAB (IMMEDIATE RELEASE) PO PRN ×3 (06:18→16:17)
[2022-12-07] MEDS: PIPERACILLIN/TAZOBACTAM 3.375 GM in DEXTROSE 5% 100 ML IV SCH ×3 (06:37→22:32)
[2022-12-07 06:46] LABS: Hematocrit (blood only) 36.7 % (42.0-52.0); Hemoglobin 12.6 g/dl (14.0-18.0); Mean Corpuscular Hemoglobin 34.7 pg (25.0-34.0); Mean Corpuscular Hgb Conc 34.3 g/dL (32.0-36.0); Mean Corpuscular Volume 101.1 fL (80.0-100.0); Mean Platelet Volume 8.7 fL (9.4-12.4); Platelet Count 236 K/uL (130-400); RDW Standard Deviation 51.6 fL (36.4-46.3); Red Blood Count 3.63 M/uL (4.70-6.10); White Blood Count 9.38 K/ul (4.8-10.8)
[2022-12-07 06:58] LABS: BUN Creatinine Ratio 14.8 (10-20); Calcium 9.4 mg/dl (8.6-10.3); Creatinine Clr Calc Pharmacy 60.5 ml/min; Est GFR (African American) 60.8 ml/min; Est GFR (Non-African American) 52.4 ml/min; Phosphorus 3.1 mg/dl (2.5-4.9)
[2022-12-07] MEDS: INSULIN ASPART PER UNIT CHARGE SC SCH ×4 (07:41→20:11)
[2022-12-07 07:50] LABS: Estimated Average Glucose 134 mg/dl; Hemoglobin A1C 6.3 % (4.5-5.6)
--- NOTE | 2022-12-07 08:20 | Pharmacy Report ---
Pharmacy PK ABX Note - Date of Service December 07, 2022 - Assessment and Plan Assessment * 72 year old M receiving Zosyn and vancomycin for treatment of diabetic foot ulcer. MRI without definite evidence of osteomyelitis, but repeat MRI may also be indicated * Pertinent microbiologic data includes: blood and toe cultures NGTD * SCr stable Plan Vancomycin * vancomycin random this AM of 13.0 * Maintenance dose increase to : 1500 mg IV every 18 hours * Regimen is predicted to achieve target AUC/PIERCE of 400-600 mg/L.hr * Random level ordered for: 4/5 w AM labs Pharmacy will continue to follow and will adjust dose/frequency as necessary. Thank you. Pharmacy has transitioned to AUC monitoring for vancomycin. AUC/PIERCE is the preferred PK/PD target and is associated with decreased risk of nephrotoxicity compared to traditional trough targets.
[2022-12-07] MEDS: METOPROLOL TARTRATE 25 MG TAB PO SCH ×2 (08:21→20:08)
[2022-12-07] MEDS: lisinopril 20 MG TAB PO SCH (08:21)
[2022-12-07] MEDS: ASPIRIN 81 MG ECTAB PO SCH (08:21)
[2022-12-07] MEDS: predniSONE 5 MG TAB PO SCH (08:21)
[2022-12-07] MEDS: allopurinoL 300 MG TAB PO SCH (08:21)
--- NOTE | 2022-12-07 08:34 | Communication Note ---
Date of Service: December 07, 2022 We would be happy to see this patient but we need an arterial duplex of the lower extremity arterial system to show vascular occlusive disease prior to ce cowan seen. Please order this so we can see the patient. thx
[2022-12-07] MEDS: VANCOMYCIN HCL 1,500 MG in SODIUM CHLORIDE 0.9% 500 ML IV SCH (09:33)
--- NOTE | 2022-12-07 14:58 | Hospitalist Progress Note ---
Date of Service December 07, 2022 Assessment & Plan (1) Wound, open, foot: (2) Cellulitis: (3) Leg edema: (4) Hyponatremia: (5) Diabetes type 2, controlled: (6) Afib: (7) CKD (chronic kidney disease), stage III: (8) CAD (coronary artery disease): (9) S/P angioplasty with stent: (10) Chronic gout: (11) HTN (hypertension): Plan L foot wound with cellulitis + hx of Diabetes: -presence of leukocytosis -with hx of DMII and chronic prednisone use started on Vanc and Zosyn on admission --- MRSA swab - blood culture and wound cultx - pending -Foot Xray showed no sign of osteo -however due to the presentation of the wound ,MRI foot to r/o osteo ordered MRI - IMPRESSION: Soft tissue edema is seen compatible with cellulitis. There is diffuse increased signal in the distal digits which is likely due to failure of fat suppression. No definite first digit osteomyelitis is seen. If clinical concern remains, study may be required with the first digit at the center of the field of view. -Ortho consulted - concern for ischemic issues/toe necrosis. Discussed over the phone. Recommend vascular surgery consultation. Consult for Dr. Lydia chen. Arterial duplex ordered. - pain control w/ oxy prn, morphine prn B/L leg swelling with L leg erythema: -severe b/l pitting edema on admission - now significantly improved -BNP 274 on admission -with the hx of CAD and Afib - echo obtained LV is normal in size. LV systolic function is normal. EF 50 to 55%. RV systolic function is normal. LA is moderately dilated. RA is moderately dilated. There is mild mitral regurg. There is mild tricuspid regurg. -b/l Doppler: no dvt -monitor on tele -LE edema improved already HypoNa+: -2/2 infection vs possible fluid overload - Sodium improved, current 136 - continue to monitor, BMP AM ordered Afib: -not on AC due to recurrent nose bleed on Coumadin -currently on aspirin and Metoprolol DMII: -pt was not aware that he has diabetes -current A1C 6.3% -ISS HTN and chronic Gout: -continue allopurinol -on chronic prednisone 5mg daily -continue Lisinopril Diet: Heart healthy and DMII DVT PPx: Lovenox Code Status:FULL CODE Emergency Contact: Drea Lackey [phone] Admission and Anticipated Discharge Date Admission Date: December 05, 2022 Subjective Pt seen in follow up of L toe /foot cellulitis, b/l LE edema Patient seen by orthopedic surgeon, Dr. Lewis, discussed with Dr. Lewis over the phone yesterday. He feels that patient needs vascular surgery consultation. Consult for Dr. Lydia chen. Patient is currently sitting up in bed, in no acute distress. Overall states that he feels better. He is breathing comfortably on room air. He is awake alert oriented, besides some pain in his left toe, has no other complaints. Denies any fevers chills chest pain shortness of breath. Reports lower extremity edema improved. Seen by wound care today. Review of Systems Review of Systems: All systems reviewed & are unremarkable except as noted in Subjective Physical Exam Physical Exam: General: WD/WN M in NAD HEENT:.Normocephalic and atraumatic, Normal Conjunctiva, EOMI, Sclera is non- icteric Lungs: CTAB, no wheezing, rhonchi, or crackles Heart: irregular Abdominal: Soft,+ bowel sounds, NT, obese MSK: 1-2 + b/l LE edema (improved), L foot: absence of L first toenail , tip of L toe necrotic, no drainage noted today, L foot erythema and TTP Psych:.AAOx3, normal affect Results & Data Results & Data Vital Signs (Past 12 Hours) Vital Signs Temp Pulse Resp BP BP BP Pulse Ox 12/07/22 12:23 36.9 C 93 H 18 114/58 L 98 12/07/22 07:49 36.6 C 88 18 152/62 H 95 12/07/22 04:02 36.9 C 79 18 156/80 H 94 O2 Del Method 12/07/22 12:23 Room Air 12/07/22 07:49 Room Air 12/07/22 04:02 Room Air Laboratory Results 12/07/22 12/07/22 12/07/22 Range/Units 11:32 07:29 06:12 WBC (4.8-10.8) K/ul RBC (4.70-6.10) M/uL Hgb (14.0-18.0) g/dl Hct (42.0-52.0) % MCV (80.0-100.0) fL MCH (25.0-34.0) pg MCHC (32.0-36.0) g/dL RDW Std Deviation (36.4-46.3) fL RDW Coeff of [place] (11.5-14.5) % Plt Count (130-400) K/uL MPV (9.4-12.4) fL Sodium (136-145) mmol/L Potassium (3.5-5.1) mmol/L Chloride (98-107) mmol/L Carbon Dioxide (21-32) mmol/L Anion Gap (3-11) BUN (6-23) mg/dl Creatinine (0.6-1.4) mg/dl Est Cr Clr Drug Dosing ml/min Est GFR ( Amer) ml/min Est GFR (Non-Af Amer) ml/min BUN/Creatinine Ratio (10-20) Glucose (70-99(Fasting)) mg/dl POC Glucose 156 H 93 (70-99) mg/dl Estimat Average Glucose mg/dl Hemoglobin A1c (4.5-5.6) % Calcium (8.6-10.3) mg/dl Phosphorus (2.5-4.9) mg/dl Magnesium (1.7-2.4) mg/dl Random Vancomycin 13.0 (10-20) mcg/ml 12/07/22 12/07/22 12/06/22 Range/Units 06:12 06:12 20:40 WBC 9.38 (4.8-10.8) K/ul RBC 3.63 L (4.70-6.10) M/uL Hgb 12.6 L (14.0-18.0) g/dl Hct 36.7 L (42.0-52.0) % MCV 101.1 H (80.0-100.0) fL MCH 34.7 H (25.0-34.0) pg MCHC 34.3 (32.0-36.0) g/dL RDW Std Deviation 51.6 H (36.4-46.3) fL RDW Coeff of [place] 14.0 (11.5-14.5) % Plt Count 236 (130-400) K/uL MPV 8.7 L (9.4-12.4) fL Sodium 136 (136-145) mmol/L Potassium 5.0 (3.5-5.1) mmol/L Chloride 103 (98-107) mmol/L Carbon Dioxide 29 (21-32) mmol/L Anion Gap 4 (3-11) BUN 20 (6-23) mg/dl Creatinine 1.35 (0.6-1.4) mg/dl Est Cr Clr Drug Dosing 60.5 ml/min Est GFR ( Amer) 60.8 ml/min Est GFR (Non-Af Amer) 52.4 ml/min BUN/Creatinine Ratio 14.8 (10-20) Glucose 103 H (70-99(Fasting)) mg/dl POC Glucose 113 H (70-99) mg/dl Estimat Average Glucose mg/dl Hemoglobin A1c (4.5-5.6) % Calcium 9.4 (8.6-10.3) mg/dl Phosphorus 3.1 (2.5-4.9) mg/dl Magnesium 2.0 (1.7-2.4) mg/dl Random Vancomycin (10-20) mcg/ml 12/06/22 12/06/22 Range/Units 16:25 06:11 WBC (4.8-10.8) K/ul RBC (4.70-6.10) M/uL Hgb (14.0-18.0) g/dl Hct (42.0-52.0) % MCV (80.0-100.0) fL MCH (25.0-34.0) pg MCHC (32.0-36.0) g/dL RDW Std Deviation (36.4-46.3) fL RDW Coeff of [place] (11.5-14.5) % Plt Count (130-400) K/uL MPV (9.4-12.4) fL Sodium (136-145) mmol/L Potassium (3.5-5.1) mmol/L Chloride (98-107) mmol/L Carbon Dioxide (21-32) mmol/L Anion Gap (3-11) BUN (6-23) mg/dl Creatinine (0.6-1.4) mg/dl Est Cr Clr Drug Dosing ml/min Est GFR ( Amer) ml/min Est GFR (Non-Af Amer) ml/min BUN/Creatinine Ratio (10-20) Glucose (70-99(Fasting)) mg/dl POC Glucose 108 H (70-99) mg/dl Estimat Average Glucose 134 mg/dl Hemoglobin A1c 6.3 H (4.5-5.6) % Calcium (8.6-10.3) mg/dl Phosphorus (2.5-4.9) mg/dl Magnesium (1.7-2.4) mg/dl Random Vancomycin (10-20) mcg/ml Medications Administered Current Inpatient Medications Acetaminophen (Acetaminophen 325 Mg Tab) 650 mg PO Q4H PRN PRN Reason: pain/fever Stop: 01/04/23 19:28 Last Admin: 12/07/22 11:45 Dose: 650 mg Allopurinol (Allopurinol 300 Mg Tab) 300 mg PO QAM RON Stop: 01/05/23 08:59 Last Admin: 12/07/22 08:21 Dose: 300 mg Aspirin (Aspirin 81 Mg Ectab) 81 mg PO DAILY RON Stop: 01/05/23 08:59 Last Admin: 12/07/22 08:21 Dose: 81 mg Dextrose (Dextrose 50% 50 Ml Syringe) 25 - 50 ml IV UD PRN; Protocol PRN Reason: Hypoglycemia Protocol Stop: 01/04/23 19:28 Enoxaparin Sodium (Enoxaparin Inj 40 Mg/0.4 Ml Syr) 40 mg SQ Q24H RON Stop: 01/04/23 19:59 Last Admin: 12/06/22 20:02 Dose: 40 mg Glucagon (Glucagon For Inj 1 Mg Vial) 1 mg SQ UD PRN; Protocol PRN Reason: Hypoglycemia Protocol Stop: 01/04/23 19:28 Glucose (Glucose 10 Tab/Tube) 4 - 8 tab PO UD PRN; Protocol PRN Reason: Hypoglycemia Treatment Stop: 01/04/23 19:28 Glucose (Glucose 40% Gel 15 Gm Tube) 15 - 30 gm PO UD PRN; Protocol PRN Reason: Hypoglycemia Protocol Stop: 01/04/23 19:28 Piperacillin Sod/Tazobactam (Sod 3.375 gm/ Dextrose) 115 mls @ 28.75 mls/hr IV Q8H RON; Protocol Stop: 01/16/23 23:29 Last Infusion: 12/07/22 10:37 Dose: Infused Vancomycin HCl 1,500 mg/ (Sodium Chloride) 530 mls @ 200 mls/hr IV Q18H RON; Protocol Stop: 01/18/23 08:59 Last Infusion: 12/07/22 13:12 Dose: Infused Insulin Aspart (Insulin Aspart Per Unit Charge) 0 units SC ACHS [facility] Stop: 01/04/23 20:59 Last Admin: 12/07/22 11:51 Dose: Not Given Lisinopril (Lisinopril 20 Mg Tab) 20 mg PO QAM [facility] Stop: 01/05/23 08:59 Last Admin: 12/07/22 08:21 Dose: 20 mg Metoprolol Tartrate (Metoprolol Tartrate 25 Mg Tab) 25 mg PO BID [facility] Stop: 01/04/23 20:59 Last Admin: 12/07/22 08:21 Dose: 25 mg Miscellaneous (Carbohydrates For Hypoglycemia ) 15 - 30 gm PO UD PRN PRN Reason: Hypoglycemia Protocol Stop: 01/04/23 19:28 Miscellaneous Information (Vancomycin Consult Active) 1,464 each N/A UD PRN PRN Reason: Consult Stop: 01/04/23 19:28 Morphine Sulfate (Morphine Sulfate 2 Mg/Ml Carp) 2 mg IV Q6H PRN PRN Reason: Severe Pain (Scale 7, 8, 9,10) Stop: 12/19/22 19:28 Last Admin: 12/07/22 10:59 Dose: 2 mg Oxycodone HCl (Oxycodone Hcl Ir 5 Mg Tab (Immediate Release)) 5 mg PO Q4H PRN PRN Reason: Pain Stop: 12/20/22 10:51 Last Admin: 12/07/22 11:45 Dose: 5 mg Prednisone (Prednisone 5 Mg Tab) 5 mg PO QAM [facility] Stop: 01/05/23 08:59 Last Admin: 12/07/22 08:21 Dose: 5 mg Simvastatin (Simvastatin 20 Mg Tab) 20 mg PO QPM [facility] Stop: 01/04/23 20:59 Last Admin: 12/06/22 20:02 Dose: 20 mg (1) Wound, open, foot Encounter type: initial encounter Laterality: left Qualified Code(s): S91.302A - Unspecified open wound, left foot, initial encounter (2) Cellulitis Laterality: left Site of cellulitis: extremity Site of cellulitis of extremity: lower extremity Qualified Code(s): L03.116 - Cellulitis of left lower limb (7) CKD (chronic kidney disease), stage III Chronic kidney disease stage 3 subtype: unspecified whether 3a or 3b Qualified Code(s): N18.30 - Chronic kidney disease, stage 3 unspecified
--- NOTE | 2022-12-07 15:38 | Ultrasound Report ---
US arterial duplex LE LT HISTORY: 72 years-old Male wound, ischemic dis. Chronic nonhealing wound within the left lower extre mity COMPARISON: Left foot radiographs 12/05/2022 TECHNIQUE: Multiple real-time sonographic images of the left lower extremity arterial structures were obtained assessing grayscale appearance, color and spectral flow. Segmental pressures also obtained. FINDINGS: Segmental pressures: Pressures in the dorsalis pedis and posterior tibial arteries are unable to be measured secondary to noncompressible vessels. 3.6 x 1.0 x 2.7 cm left inguinal lymph node is favored to be reactive. Study is limited secondary to extensive atherosclerotic plaque. Predominant triphasic waveforms are noted about the level the knee . Elevated peak systolic velocities within the left common femoral artery measure up to 189 cm/s. Mon ophasic and biphasic waveforms in the left lower leg without arterial occlusion. Blunted monophasic w aveforms in the posterior tibial and dorsalis pedis arteries with dampened flow. Peak systolic veloci ties within the dorsalis pedis artery measure up to 22 cm/s. Nonvisualization of the peroneal artery. IMPRESSION: 1. Atherosclerotic plaque with monophasic waveforms within the lower leg. 2. Elevated peak systolic velocities within the superficial femoral artery compatible with a degree o f luminal stenosis. 3. No arterial occlusion identified. ACT 112: Negative or not required by law. The above report was generated using voice recognition software. It may contain grammatical, syntax o r spelling errors. Electronically signed by: Micky Tate M.D. 12/07/2022 3:36 PM
[2022-12-07] MEDS: ENOXAPARIN INJ 40 MG/0.4 ML SYR SQ SCH (20:07)
[2022-12-07] MEDS: SIMVASTATIN 20 MG TAB PO SCH (20:08)
[2022-12-07] MEDS: HYDROmorphone INJ 0.5 MG/0.5 ML SYR IV PRN (21:41)
[2022-12-08] MEDS: oxyCODONE HCL IR 5 MG TAB (IMMEDIATE RELEASE) PO PRN ×5 (00:46→20:19)
[2022-12-08] MEDS: VANCOMYCIN HCL 1,500 MG in SODIUM CHLORIDE 0.9% 500 ML IV SCH ×2 (02:22→20:20)
[2022-12-08] MEDS: HYDROmorphone INJ 0.5 MG/0.5 ML SYR IV PRN ×4 (02:24→19:04)
[2022-12-08 06:35] LABS: Hematocrit (blood only) 35.3 % (42.0-52.0); Hemoglobin 12.1 g/dl (14.0-18.0); Mean Corpuscular Hemoglobin 34.2 pg (25.0-34.0); Mean Corpuscular Hgb Conc 34.3 g/dL (32.0-36.0); Mean Corpuscular Volume 99.7 fL (80.0-100.0); Mean Platelet Volume 8.9 fL (9.4-12.4); Platelet Count 246 K/uL (130-400); RDW Coefficient of Variation 13.8 % (11.5-14.5); RDW Standard Deviation 50.2 fL (36.4-46.3); Red Blood Count 3.54 M/uL (4.70-6.10); White Blood Count 11.19 K/ul (4.8-10.8)
[2022-12-08 07:02] LABS: BUN Creatinine Ratio 14.4 (10-20); Creatinine Clr Calc Pharmacy 61.9 ml/min; Est GFR (African American) 62.5 ml/min; Est GFR (Non-African American) 53.9 ml/min; Magnesium 1.8 mg/dl (1.7-2.4); Phosphorus 2.8 mg/dl (2.5-4.9); Potassium 4.1 mmol/L (3.5-5.1)
--- NOTE | 2022-12-08 07:31 | Hospitalist Progress Note ---
Date of Service December 08, 2022 Assessment & Plan (1) Wound, open, foot: (2) Cellulitis: (3) Leg edema: (4) Hyponatremia: (5) Diabetes type 2, controlled: (6) Afib: (7) CKD (chronic kidney disease), stage III: (8) CAD (coronary artery disease): (9) S/P angioplasty with stent: (10) Chronic gout: (11) HTN (hypertension): Plan L foot wound with cellulitis + hx of Diabetes: -presence of leukocytosis -with hx of DMII and chronic prednisone use started on Vanc and Zosyn on admission --- MRSA swab - blood culture and wound cultx - pending -Foot Xray showed no sign of osteo -however due to the presentation of the wound ,MRI foot to r/o osteo ordered MRI - IMPRESSION: Soft tissue edema is seen compatible with cellulitis. There is diffuse increased signal in the distal digits which is likely due to failure of fat suppression. No definite first digit osteomyelitis is seen. If clinical concern remains, study may be required with the first digit at the center of the field of view. -Ortho consulted - concern for ischemic issues/toe necrosis. Discussed over the phone. Recommend vascular surgery consultation. Consult for Dr. Lydia chen. Arterial duplex ordered. - Per vascular - Pt with significant PAD on US, recommend pt undergo LLE angio with intervention on WEDNESDAY in OR. Pt should proceed with any necessary orthopedic L foot procedures as determined by orthopedic surgery team. - pain control w/ oxy prn, morphine prn B/L leg swelling with L leg erythema: -severe b/l pitting edema on admission - now significantly improved -BNP 274 on admission -with the hx of CAD and Afib - echo obtained LV is normal in size. LV systolic function is normal. EF 50 to 55%. RV systolic function is normal. LA is moderately dilated. RA is moderately dilated. There is mild mitral regurg. There is mild tricuspid regurg. -b/l Doppler: no dvt -monitor on tele -LE edema improved already HypoNa+: -2/2 infection vs possible fluid overload - Sodium improved, current 135 - continue to monitor, BMP AM ordered Afib: -not on AC due to recurrent nose bleed on Coumadin -currently on aspirin and Metoprolol DMII: -pt was not aware that he has diabetes -current A1C 6.3% -ISS HTN and chronic Gout: -continue allopurinol -on chronic prednisone 5mg daily -continue Lisinopril - consider adding amlodipine - BP elevated - possibly driven by pain as well, pain meds adjusted Diet: Heart healthy and DMII DVT PPx: Lovenox Code Status:FULL CODE Emergency Contact: Daughter- Darya [phone] Admission and Anticipated Discharge Date Admission Date: December 05, 2022 Subjective Pt seen in follow up of L toe /foot cellulitis, b/l LE edema Patient is currently sitting up in bed, in no acute distress. Overall states that he feels ok. He is breathing comfortably on room air. He is awake alert oriented, besides some pain in his left toe, has no other complaints. Denies any fevers chills chest pain shortness of breath. Reports lower extremity edema improved. Daughter present at the bedside and updated. Orthopedic and vascular surgery consulted - plan for vasc. procedure on Wednesday. Review of Systems Review of Systems: All systems reviewed & are unremarkable except as noted in Subjective Physical Exam Physical Exam: General: WD/WN M in NAD HEENT:.Normocephalic and atraumatic, Normal Conjunctiva, EOMI, Sclera is non- icteric Lungs: CTAB, no wheezing, rhonchi, or crackles Heart: irregular Abdominal: Soft,+ bowel sounds, NT, obese MSK: 1-2 + b/l LE edema (improved), L foot: absence of L first toenail , tip of L toe necrotic (see images in emr), L foot erythema and TTP Psych:.AAOx3, normal affect Results & Data Results & Data Vital Signs (Past 12 Hours) Vital Signs Temp Pulse Pulse Resp BP Pulse Ox O2 Del Method 12/08/22 07:13 85 12/08/22 03:48 37 C 79 18 159/70 H 97 Room Air 12/07/22 23:21 74 12/07/22 23:20 36.9 C 91 H 16 168/82 H 99 Room Air 12/07/22 20:32 Room Air Laboratory Results 12/08/22 12/08/22 12/08/22 Range/Units 07:24 05:56 05:56 WBC 11.19 H (4.8-10.8) K/ul RBC 3.54 L (4.70-6.10) M/uL Hgb 12.1 L (14.0-18.0) g/dl Hct 35.3 L (42.0-52.0) % MCV 99.7 (80.0-100.0) fL MCH 34.2 H (25.0-34.0) pg MCHC 34.3 (32.0-36.0) g/dL RDW Std Deviation 50.2 H (36.4-46.3) fL RDW Coeff of Landen 13.8 (11.5-14.5) % Plt Count 246 (130-400) K/uL MPV 8.9 L (9.4-12.4) fL Sodium 135 L (136-145) mmol/L Potassium 4.1 (3.5-5.1) mmol/L Chloride 101 (98-107) mmol/L Carbon Dioxide 26 (21-32) mmol/L Anion Gap 8 (3-11) BUN 19 (6-23) mg/dl Creatinine 1.32 (0.6-1.4) mg/dl Est Cr Clr Drug Dosing 61.9 ml/min Est GFR ( Amer) 62.5 ml/min Est GFR (Non-Af Amer) 53.9 ml/min BUN/Creatinine Ratio 14.4 (10-20) Glucose 108 H (70-99(Fasting)) mg/dl POC Glucose 107 H (70-99) mg/dl Estimat Average Glucose mg/dl Hemoglobin A1c (4.5-5.6) % Calcium 9.0 (8.6-10.3) mg/dl Phosphorus 2.8 (2.5-4.9) mg/dl Magnesium 1.8 (1.7-2.4) mg/dl Random Vancomycin (10-20) mcg/ml 12/07/22 12/07/22 12/07/22 Range/Units 20:05 17:00 11:32 WBC (4.8-10.8) K/ul RBC (4.70-6.10) M/uL Hgb (14.0-18.0) g/dl Hct (42.0-52.0) % MCV (80.0-100.0) fL MCH (25.0-34.0) pg MCHC (32.0-36.0) g/dL RDW Std Deviation (36.4-46.3) fL RDW Coeff of Landen (11.5-14.5) % Plt Count (130-400) K/uL MPV (9.4-12.4) fL Sodium (136-145) mmol/L Potassium (3.5-5.1) mmol/L Chloride (98-107) mmol/L Carbon Dioxide (21-32) mmol/L Anion Gap (3-11) BUN (6-23) mg/dl Creatinine (0.6-1.4) mg/dl Est Cr Clr Drug Dosing ml/min Est GFR ( Amer) ml/min Est GFR (Non-Af Amer) ml/min BUN/Creatinine Ratio (10-20) Glucose (70-99(Fasting)) mg/dl POC Glucose 114 H 130 H 156 H (70-99) mg/dl Estimat Average Glucose mg/dl Hemoglobin A1c (4.5-5.6) % Calcium (8.6-10.3) mg/dl Phosphorus (2.5-4.9) mg/dl Magnesium (1.7-2.4) mg/dl Random Vancomycin (10-20) mcg/ml 12/07/22 12/07/22 12/06/22 Range/Units 07:29 06:12 06:11 WBC (4.8-10.8) K/ul RBC (4.70-6.10) M/uL Hgb (14.0-18.0) g/dl Hct (42.0-52.0) % MCV (80.0-100.0) fL MCH (25.0-34.0) pg MCHC (32.0-36.0) g/dL RDW Std Deviation (36.4-46.3) fL RDW Coeff of Landen (11.5-14.5) % Plt Count (130-400) K/uL MPV (9.4-12.4) fL Sodium (136-145) mmol/L Potassium (3.5-5.1) mmol/L Chloride (98-107) mmol/L Carbon Dioxide (21-32) mmol/L Anion Gap (3-11) BUN (6-23) mg/dl Creatinine (0.6-1.4) mg/dl Est Cr Clr Drug Dosing ml/min Est GFR ( Amer) ml/min Est GFR (Non-Af Amer) ml/min BUN/Creatinine Ratio (10-20) Glucose (70-99(Fasting)) mg/dl POC Glucose 93 (70-99) mg/dl Estimat Average Glucose 134 mg/dl Hemoglobin A1c 6.3 H (4.5-5.6) % Calcium (8.6-10.3) mg/dl Phosphorus (2.5-4.9) mg/dl Magnesium (1.7-2.4) mg/dl Random Vancomycin 13.0 (10-20) mcg/ml Medications Administered Current Inpatient Medications Acetaminophen (Acetaminophen 325 Mg Tab) 650 mg PO Q4H PRN PRN Reason: pain/fever Stop: 01/04/23 19:28 Last Admin: 12/07/22 16:18 Dose: 650 mg Allopurinol (Allopurinol 300 Mg Tab) 300 mg PO QAM RON Stop: 01/05/23 08:59 Last Admin: 12/07/22 08:21 Dose: 300 mg Aspirin (Aspirin 81 Mg Ectab) 81 mg PO DAILY RON Stop: 01/05/23 08:59 Last Admin: 12/07/22 08:21 Dose: 81 mg Dextrose (Dextrose 50% 50 Ml Syringe) 25 - 50 ml IV UD PRN; Protocol PRN Reason: Hypoglycemia Protocol Stop: 01/04/23 19:28 Enoxaparin Sodium (Enoxaparin Inj 40 Mg/0.4 Ml Syr) 40 mg SQ Q24H RON Stop: 01/04/23 19:59 Last Admin: 12/07/22 20:07 Dose: 40 mg Glucagon (Glucagon For Inj 1 Mg Vial) 1 mg SQ UD PRN; Protocol PRN Reason: Hypoglycemia Protocol Stop: 01/04/23 19:28 Glucose (Glucose 10 Tab/Tube) 4 - 8 tab PO UD PRN; Protocol PRN Reason: Hypoglycemia Treatment Stop: 01/04/23 19:28 Glucose (Glucose 40% Gel 15 Gm Tube) 15 - 30 gm PO UD PRN; Protocol PRN Reason: Hypoglycemia Protocol Stop: 01/04/23 19:28 Hydromorphone HCl (Hydromorphone Inj 0.5 Mg/0.5 Ml Syr) 0.5 mg IV Q4H PRN PRN Reason: Pain Stop: 12/21/22 19:53 Last Admin: 12/08/22 02:24 Dose: 0.5 mg Piperacillin Sod/Tazobactam (Sod 3.375 gm/ Dextrose) 115 mls @ 28.75 mls/hr IV Q8H [facility]; Protocol Stop: 01/16/23 23:29 Last Infusion: 12/08/22 03:40 Dose: Infused Vancomycin HCl 1,500 mg/ (Sodium Chloride) 530 mls @ 200 mls/hr IV Q18H [facility]; Protocol Stop: 01/18/23 08:59 Last Infusion: 12/08/22 05:10 Dose: Infused Insulin Aspart (Insulin Aspart Per Unit Charge) 0 units SC ACHS [facility] Stop: 01/04/23 20:59 Last Admin: 12/07/22 20:11 Dose: Not Given Lisinopril (Lisinopril 20 Mg Tab) 20 mg PO QAM [facility] Stop: 01/05/23 08:59 Last Admin: 12/07/22 08:21 Dose: 20 mg Metoprolol Tartrate (Metoprolol Tartrate 25 Mg Tab) 25 mg PO BID [facility] Stop: 01/04/23 20:59 Last Admin: 12/07/22 20:08 Dose: 25 mg Miscellaneous (Carbohydrates For Hypoglycemia ) 15 - 30 gm PO UD PRN PRN Reason: Hypoglycemia Protocol Stop: 01/04/23 19:28 Miscellaneous Information (Vancomycin Consult Active) 1,464 each N/A UD PRN PRN Reason: Consult Stop: 01/04/23 19:28 Oxycodone HCl (Oxycodone Hcl Ir 5 Mg Tab (Immediate Release)) 5 mg PO Q4H PRN PRN Reason: Pain Stop: 12/20/22 10:51 Last Admin: 12/08/22 05:26 Dose: 5 mg Prednisone (Prednisone 5 Mg Tab) 5 mg PO QAM [facility] Stop: 01/05/23 08:59 Last Admin: 12/07/22 08:21 Dose: 5 mg Simvastatin (Simvastatin 20 Mg Tab) 20 mg PO QPM [facility] Stop: 01/04/23 20:59 Last Admin: 12/07/22 20:08 Dose: 20 mg (1) Wound, open, foot Encounter type: initial encounter Laterality: left Qualified Code(s): S91.302A - Unspecified open wound, left foot, initial encounter (2) Cellulitis Laterality: left Site of cellulitis: extremity Site of cellulitis of extremity: lower extremity Qualified Code(s): L03.116 - Cellulitis of left lower limb (7) CKD (chronic kidney disease), stage III Chronic kidney disease stage 3 subtype: unspecified whether 3a or 3b Qualified Code(s): N18.30 - Chronic kidney disease, stage 3 unspecified
[2022-12-08] MEDS: METOPROLOL TARTRATE 25 MG TAB PO SCH ×2 (07:50→20:19)
[2022-12-08] MEDS: INSULIN ASPART PER UNIT CHARGE SC SCH ×4 (07:50→20:12)
[2022-12-08] MEDS: PIPERACILLIN/TAZOBACTAM 3.375 GM in DEXTROSE 5% 100 ML IV SCH ×3 (07:51→23:08)
[2022-12-08] MEDS: predniSONE 5 MG TAB PO SCH (07:51)
[2022-12-08] MEDS: lisinopril 20 MG TAB PO SCH (07:51)
[2022-12-08] MEDS: ASPIRIN 81 MG ECTAB PO SCH (07:51)
[2022-12-08] MEDS: allopurinoL 300 MG TAB PO SCH (07:51)
--- NOTE | 2022-12-08 10:52 | Consultation ---
Date of Consultation December 08, 2022 Assessment & Plan (1) Peripheral arterial disease: Pt with significant PAD on US, and now with traumatic nonhealing/gangrenous wound to L 1st and 2nd toes. Pt discussed with Dr Freeman, recommends pt undergo LLE angio with intervention on WEDNESDAY in OR. Pt agreeable. Pt should proceed with any necessary orthopedic L foot procedures as determined by orthopedic surgery team. History of Present Illness Reason for Consultation: PAD Attending Physician: Kevin Jacome MD History of Present Illness 72 yo m with hx of a fib not on AC, CKD, CAD, gout, HTN, DMII, admitted with gangrene of L great and 2nd toe, seen in consultation today for PAD. Pt states no prior hx of PAD. States he noted dark discoloration of L great and 2nd toe about 2 weeks ago after he had an ingrown toenail which became caught on his sock and pulled the toenail off. Pt denies claudication sx, but states has been having severe pain in L foot/toes at night for past 3 months. No prior toe discoloration or nonhealing ulcers in past. Denies Bianchi, fever, chest pain, SOB, abd pain, N/V, other complaints. Imaging: LLE arterial US demonstrates significant PAD and heavily calcified vessels, with decreased flow infrapop arteries. Allergies Allergy/AdvReac Type Severity Reaction Status Date / Time No Known Allergies Allergy Unverified 12/05/22 16:10 Home Medications Medication Instructions Recorded Confirmed Type allopurinol 300 mg tablet 300 mg PO QAM 12/05/22 12/05/22 History aspirin 81 mg tablet,delayed 81 mg PO DAILY 12/05/22 12/05/22 History release lisinopril 20 mg tablet 20 mg PO QAM 12/05/22 12/05/22 History meloxicam 15 mg tablet 15 mg PO QAM 12/05/22 12/05/22 History metoprolol tartrate 25 mg tablet 25 mg PO BID 12/05/22 12/05/22 History prednisone 5 mg tablet 5 mg PO QAM 12/05/22 12/05/22 History simvastatin 20 mg tablet 20 mg PO QPM 12/05/22 12/05/22 History Patient History Medical History (Updated 12/08/22 @ 10:49 by Zuri Fuller PA-C) Afib CAD (coronary artery disease) Chronic gout CKD (chronic kidney disease), stage III Diabetes type 2, controlled HTN (hypertension) Peripheral arterial disease Tophi gouty Surgical History S/P angioplasty with stent Social History Smoking Status: Never smoker Hx Alcohol Use: Yes Alcohol type: beer Hx Substance Use: No Preferred Language: Wolof Communication Ability: Effective Box Spring Maker Required: No Beliefs That Will Affect Care: None Current Living Situation: Alone Feels Safe at Home: Yes Assistive Devices: Cane Review of Systems Review of Systems: All systems reviewed & are unremarkable except as noted in HPI & below Physical Exam Constitutional: WD/WN, vitals as above healthy appearing, cooperative and comfortable; not in distress Neck: trachea midline Respiratory: normal respiratory effort, lungs clear to auscultation Auscultation: + diminished lung sounds Cardiovascular: Rate/Rhythm: + irregularly irregular Vessels: femoral pulses present, posterior tibial pulses present (dopplerable BLE), dorsalis pedis pulses present (dopplerable BLE), brachial pulses present and radial pulses present; + abnormal peripheral pulses Extremities: + edema (BLE +2); + abnormal capillary refill (L 1st/2nd toes no refill. 3rd-5th toes + refill) Gastrointestinal (Abdomen): Inspection/Auscultation: abdomen normal to inspection and normal bowel sounds Percussion/Palpation: abdomen soft; abdomen nontender Musculoskeletal: Extremities: strength 5/5 throughout Skin: + eschar (L toes1-2. +local mottling, erythema to mid foot. ) Neurologic: moves all extremities and awake; no focal motor deficits and not confused Psychiatric: A+Ox3, euthymic affect Results & Data Vital Signs (Past 12 Hours) Vital Signs Temp Pulse Pulse Resp BP BP Pulse Ox 12/08/22 07:28 36.9 C 116 H 16 170/77 H 98 12/08/22 07:13 85 12/08/22 03:48 37 C 79 18 159/70 H 97 12/07/22 23:21 74 12/07/22 23:20 36.9 C 91 H 16 168/82 H 99 O2 Del Method 12/08/22 07:28 Room Air 12/08/22 07:13 12/08/22 03:48 Room Air 12/07/22 23:21 12/07/22 23:20 Room Air
[2022-12-08] MEDS: amLODIPine BESYLATE 5 MG TAB PO SCH (17:01)
[2022-12-08] MEDS: SIMVASTATIN 20 MG TAB PO SCH (20:19)
[2022-12-08] MEDS: ENOXAPARIN INJ 40 MG/0.4 ML SYR SQ SCH (20:20)
[2022-12-09] MEDS: oxyCODONE HCL IR 5 MG TAB (IMMEDIATE RELEASE) PO PRN ×5 (02:38→23:13)
[2022-12-09] MEDS: PIPERACILLIN/TAZOBACTAM 3.375 GM in DEXTROSE 5% 100 ML IV SCH (07:48)
[2022-12-09] MEDS: INSULIN ASPART PER UNIT CHARGE SC SCH ×4 (08:06→20:36)
[2022-12-09 08:07] LABS: Hematocrit (blood only) 35.2 % (42.0-52.0); Hemoglobin 11.8 g/dl (14.0-18.0); Mean Corpuscular Hemoglobin 33.3 pg (25.0-34.0); Mean Corpuscular Hgb Conc 33.5 g/dL (32.0-36.0); Mean Corpuscular Volume 99.4 fL (80.0-100.0); Mean Platelet Volume 8.8 fL (9.4-12.4); Platelet Count 232 K/uL (130-400); RDW Coefficient of Variation 13.7 % (11.5-14.5); RDW Standard Deviation 50.9 fL (36.4-46.3); Red Blood Count 3.54 M/uL (4.70-6.10); White Blood Count 10.41 K/ul (4.8-10.8)
[2022-12-09] MEDS: allopurinoL 300 MG TAB PO SCH (08:09)
[2022-12-09] MEDS: lisinopril 20 MG TAB PO SCH (08:09)
[2022-12-09] MEDS: ASPIRIN 81 MG ECTAB PO SCH (08:09)
[2022-12-09] MEDS: predniSONE 5 MG TAB PO SCH (08:09)
[2022-12-09] MEDS: METOPROLOL TARTRATE 25 MG TAB PO SCH (08:09)
[2022-12-09 08:37] LABS: BUN Creatinine Ratio 16.8 (10-20); Calcium 9.2 mg/dl (8.6-10.3); Creatinine Clr Calc Pharmacy 54.9 ml/min; Est GFR (Non-African American) 46.6 ml/min; Phosphorus 3.3 mg/dl (2.5-4.9); Potassium 4.4 mmol/L (3.5-5.1)
--- NOTE | 2022-12-09 08:37 | Pharmacy Report ---
Pharmacy PK ABX Note - Date of Service December 09, 2022 - Assessment and Plan Assessment * 72 year old M receiving Cefepime/Flagyl and vancomycin for treatment of diabetic foot ulcer. MRI without definite evidence of osteomyelitis, but repeat MRI may also be indicated * Pertinent microbiologic data includes: toe culture growing Acinetobacter and Pseudomon fluoresc (R meropenem and Bactrim) * SCr stable Plan Vancomycin * vancomycin random this AM of 19.5 MCG/ML * Maintenance dose : 1500 mg IV every 18 hours (of note, vancomycin 1 gm IV q12 would also be appropriate and could be used outpatient) * Regimen is predicted to achieve target AUC/PIERCE of 400-600 mg/L.hr * Random level to be ordered based upon duration of therapy Pharmacy will continue to follow and will adjust dose/frequency as necessary. Thank you. Pharmacy has transitioned to AUC monitoring for vancomycin. AUC/PIERCE is the preferred PK/PD target and is associated with decreased risk of nephrotoxicity compared to traditional trough targets.
[2022-12-09] MEDS: amLODIPine BESYLATE 5 MG TAB PO SCH (09:08)
[2022-12-09] MEDS: metroNIDAZOLE 500 MG/100 ML BAG IV SCH ×2 (09:08→17:43)
[2022-12-09] MEDS: CEFEPIME 2,000 MG in SYRINGE 0 ML IV SCH ×3 (09:08→23:15)
[2022-12-09] MEDS: VANCOMYCIN HCL 1,500 MG in SODIUM CHLORIDE 0.9% 500 ML IV SCH (14:57)
[2022-12-09] MEDS ORDERED: METOPROLOL TARTRATE 1 MG/ML VIAL IV PRN (17:26)
[2022-12-09] MEDS ORDERED: METOPROLOL TARTRATE 25 MG TAB PO ONE (17:26)
--- NOTE | 2022-12-09 17:29 | Hospitalist Progress Note ---
Date of Service December 09, 2022 Assessment & Plan (1) Wound, open, foot: (2) Cellulitis: (3) Leg edema: (4) Hyponatremia: (5) Diabetes type 2, controlled: (6) Afib: (7) CKD (chronic kidney disease), stage III: (8) CAD (coronary artery disease): (9) S/P angioplasty with stent: (10) Chronic gout: (11) HTN (hypertension): Plan Left foot wound with cellulitis PAD In setting of DM II and chronic prednisone use MRSA swab negative -MRI Foot:Soft tissue edema is seen compatible with cellulitis. There is diffuse increased signal in the distal digits which is likely due to failure of fat suppression. No definite first digit osteomyelitis is seen. If clinical concern remains, study may be required with the first digit at the center of the field of view. -Venous Doppler:Currently there is normal compressibility of the deep venous system from the common femoral vein through the proximal calf veins. No superficial venous thrombosis is identified -Arterial Doppler:Atherosclerotic plaque with monophasic waveforms within the lower leg. Elevated peak systolic velocities within the superficial femoral artery compatible with a degree of luminal stenosis. No arterial occlusion identified. --Wound Cx: Acinetobacter, Pseudom Fluoresc/[place] --Blood cultures negative to date -- Vanco, Zosyn>> transition to cefepime, Flagyl. Will consider to discontinue vancomycin as able -- Appreciate orthopedics, vascular input Continue wound care --Plan for left lower extremity angioplasty on Wednesday --We will discuss with orthopedics for further recommendations after the procedure -Continue aspirin, statin A-fib RVR H/O Afib --ECHO: Left ventricle is normal in size. Left ventricle systolic function is normal. EF 50 to 55%. Right ventricle systolic function is normal. Left atrium is moderately dilated. Left atrium is moderately dilated. Mild mitral and tricuspid regurgitation. Not on anticoagulation due to recurrent nosebleeds while on Coumadin Metoprolol dose increased to 50 mg twice daily Monitor and replace electrolytes as needed Consider cardiology evaluation if needed Low threshold to transfer to PCU if heart rate remains uncontrolled Hyponatremia Sodium levels improved to 136 Monitor sodium levels DM II: HbA1C 6.3 Continue ISS Monitor BGs HTN Chronic Gout: Continue allopurinol, prednisone Continue Lisinopril Added Amlodipine Monitor BP DVT Px: Lovenox SQ Code Status: FULL CODE Admission and Anticipated Discharge Date Admission Date: December 05, 2022 Subjective Patient is seen and examined at bedside States having right foot pain Denies any chest pain, dyspnea, dizziness, nausea, abdominal pain Tachycardic on monitor Discussed with patient's family at bedside No other complaints Review of Systems Review of Systems: All systems reviewed & are unremarkable except as noted in Subjective Physical Exam Physical Exam: Physical Exam: Vitals signs as noted above General Appearance:Moderately built and nourished, no apparent distress Head: normocephalic, Atraumatic Eyes: normal inspection, EOMI Neck: supple, Trachea midline Respiratory/Chest: Normal breath sounds, CTA, No accessory muscle use Cardiovascular: Irregularly irregular, tachycardia, No murmur Abdomen/GI:Soft, Non tender, Bowel sounds present Extremities/Musculoskeletal:normal inspection, B/L LE edema, L 1st toe necrotic in dressing Neurologic/Psych:AAOX3, grossly no focal neurological deficits Skin: normal color, warm Results & Data Results & Data Vital Signs (Past 12 Hours) Vital Signs Temp Pulse Pulse Resp BP Pulse Ox O2 Del Method 12/09/22 16:13 37.3 C 111 H 16 155/73 H 92 Room Air 12/09/22 15:13 112 H 12/09/22 11:41 36.8 C 98 H 16 159/62 H 98 Room Air 12/09/22 07:41 36.4 C L 94 H 16 152/60 H 98 Room Air 12/09/22 06:55 78 Laboratory Results Short CBC 12/09/22 Range/Units 07:43 WBC 10.41 (4.8-10.8) K/ul Hgb 11.8 L (14.0-18.0) g/dl Hct 35.2 L (42.0-52.0) % Plt Count 232 (130-400) K/uL BMP 12/09/22 07:43 Sodium 136 Potassium 4.4 Chloride 101 Carbon Dioxide 28 BUN 25 H Creatinine 1.49 H Glucose 96 Calcium 9.2 (1) Wound, open, foot Encounter type: initial encounter Laterality: left Qualified Code(s): S91.302A - Unspecified open wound, left foot, initial encounter (2) Cellulitis Laterality: left Site of cellulitis: extremity Site of cellulitis of extremity: lower extremity Qualified Code(s): L03.116 - Cellulitis of left lower limb (7) CKD (chronic kidney disease), stage III Chronic kidney disease stage 3 subtype: unspecified whether 3a or 3b Qualified Code(s): N18.30 - Chronic kidney disease, stage 3 unspecified
[2022-12-09] MEDS: HYDROmorphone INJ 0.5 MG/0.5 ML SYR IV PRN (19:03)
[2022-12-09] MEDS: SIMVASTATIN 20 MG TAB PO SCH (20:53)
[2022-12-09] MEDS: ENOXAPARIN INJ 40 MG/0.4 ML SYR SQ SCH (20:53)
[2022-12-09] MEDS: METOPROLOL TARTRATE 50 MG TAB PO SCH (20:53)
[2022-12-10] MEDS: metroNIDAZOLE 500 MG/100 ML BAG IV SCH ×3 (01:04→17:17)
[2022-12-10] MEDS: HYDROmorphone INJ 0.5 MG/0.5 ML SYR IV PRN ×2 (01:11→21:30)
[2022-12-10] MEDS: oxyCODONE HCL IR 5 MG TAB (IMMEDIATE RELEASE) PO PRN ×3 (05:55→18:27)
[2022-12-10 06:00] LABS: Hematocrit (blood only) 33.3 % (42.0-52.0); Hemoglobin 11.3 g/dl (14.0-18.0); Mean Corpuscular Hemoglobin 33.6 pg (25.0-34.0); Mean Corpuscular Hgb Conc 33.9 g/dL (32.0-36.0); Mean Corpuscular Volume 99.1 fL (80.0-100.0); Mean Platelet Volume 8.7 fL (9.4-12.4); Platelet Count 230 K/uL (130-400); RDW Coefficient of Variation 13.8 % (11.5-14.5); RDW Standard Deviation 50.2 fL (36.4-46.3); Red Blood Count 3.36 M/uL (4.70-6.10); White Blood Count 10.13 K/ul (4.8-10.8)
[2022-12-10 06:14] LABS: BUN Creatinine Ratio 20.2 (10-20); Calcium 8.9 mg/dl (8.6-10.3); Creatinine Clr Calc Pharmacy 65.9 ml/min; Est GFR (African American) 67.4 ml/min; Est GFR (Non-African American) 58.1 ml/min; Potassium 4.3 mmol/L (3.5-5.1)
[2022-12-10] MEDS: INSULIN ASPART PER UNIT CHARGE SC SCH ×4 (07:52→21:28)
[2022-12-10] MEDS: lisinopril 20 MG TAB PO SCH (08:23)
[2022-12-10] MEDS: ASPIRIN 81 MG ECTAB PO SCH (08:26)
[2022-12-10] MEDS: METOPROLOL TARTRATE 50 MG TAB PO SCH ×2 (08:27→21:29)
[2022-12-10] MEDS: predniSONE 5 MG TAB PO SCH (08:28)
[2022-12-10] MEDS: amLODIPine BESYLATE 5 MG TAB PO SCH (08:28)
[2022-12-10] MEDS: allopurinoL 300 MG TAB PO SCH (08:30)
[2022-12-10] MEDS: CEFEPIME 2,000 MG in SYRINGE 0 ML IV SCH ×3 (08:34→23:41)
--- NOTE | 2022-12-10 08:39 | Electrocardiogram Report ---
Test Reason : Blood Pressure : / mmHG Vent. Rate : 108 BPM Atrial Rate : 119 BPM P-R Int : 000 ms QRS Dur : 074 ms QT Int : 324 ms P-R-T Axes : 000 059 058 degrees QTc Int : 434 ms Atrial fibrillation with rapid ventricular response Diffuse Minor Nonspecific T wave abnormality Abnormal ECG No previous ECGs available Confirmed by Thee Zamora ([id number]) on 12/10/2022 8:38:50 AM Referred By: REFERRED SELF Confirmed By:Thee Zamora
[2022-12-10] MEDS: VANCOMYCIN HCL 1,500 MG in SODIUM CHLORIDE 0.9% 500 ML IV SCH (09:19)
--- NOTE | 2022-12-10 16:30 | Hospitalist Progress Note ---
Date of Service December 10, 2022 Assessment & Plan (1) Wound, open, foot: (2) Cellulitis: (3) Leg edema: (4) Hyponatremia: (5) Diabetes type 2, controlled: (6) Afib: (7) CKD (chronic kidney disease), stage III: (8) CAD (coronary artery disease): (9) S/P angioplasty with stent: (10) Chronic gout: (11) HTN (hypertension): Plan Left foot wound with cellulitis PAD In setting of DM II and chronic prednisone use MRSA swab negative -MRI Foot:Soft tissue edema is seen compatible with cellulitis. There is diffuse increased signal in the distal digits which is likely due to failure of fat suppression. No definite first digit osteomyelitis is seen. If clinical concern remains, study may be required with the first digit at the center of the field of view. -Venous Doppler:Currently there is normal compressibility of the deep venous system from the common femoral vein through the proximal calf veins. No superficial venous thrombosis is identified -Arterial Doppler:Atherosclerotic plaque with monophasic waveforms within the lower leg. Elevated peak systolic velocities within the superficial femoral artery compatible with a degree of luminal stenosis. No arterial occlusion identified. --Wound Cx: Acinetobacter, Pseudom Fluoresc/Putida --Blood cultures negative to date -- Vanco, Zosyn>> transition to cefepime, Flagyl --IV vancomycin discontinued on 12/10/2022 -- Appreciate orthopedics, vascular input Continue wound care --We will discuss with orthopedics for further recommendations after the procedure -Continue aspirin, statin N.p.o. after midnight for lower extremity angioplasty tomorrow A-fib RVR H/O Afib --ECHO: Left ventricle is normal in size. Left ventricle systolic function is normal. EF 50 to 55%. Right ventricle systolic function is normal. Left atrium is moderately dilated. Left atrium is moderately dilated. Mild mitral and tricuspid regurgitation. Not on anticoagulation due to recurrent nosebleeds while on Coumadin Metoprolol dose increased to 50 mg twice daily Monitor and replace electrolytes as needed Consider cardiology evaluation if needed Heart rate controlled Hyponatremia Sodium levels improved to 135 Monitor sodium levels DM II: HbA1C 6.3 Continue ISS Monitor BGs HTN Chronic Gout: Continue allopurinol, prednisone Continue Lisinopril Added Amlodipine Monitor BP DVT Px: Lovenox SQ Code Status: FULL CODE Admission and Anticipated Discharge Date Admission Date: December 05, 2022 Subjective Patient is seen and examined at bedside Subjectively feels leg swelling is improving Still has right foot pain No new complaints Denies any chest pain, dyspnea, dizziness, nausea, abdominal pain Heart rate better today Review of Systems Review of Systems: All systems reviewed & are unremarkable except as noted in Subjective Physical Exam Physical Exam: Physical Exam: Vitals signs as noted above General Appearance:Moderately built and nourished, no apparent distress Head: normocephalic, Atraumatic Eyes: normal inspection, EOMI Neck: supple, Trachea midline Respiratory/Chest: Normal breath sounds, CTA, No accessory muscle use Cardiovascular: Irregularly irregular, No murmur Abdomen/GI:Soft, Non tender, Bowel sounds present Extremities/Musculoskeletal:normal inspection, B/L LE edema, L 1st toe necrotic in dressing Neurologic/Psych:AAOX3, grossly no focal neurological deficits Skin: normal color, warm Results & Data Results & Data Vital Signs (Past 12 Hours) Vital Signs Temp Pulse Pulse Resp BP Pulse Ox O2 Del Method 12/10/22 11:15 36.9 C 84 18 176/76 H 96 Room Air 12/10/22 07:30 86 12/10/22 07:58 36.9 C 79 18 165/74 H 95 Room Air Laboratory Results Short CBC 12/10/22 Range/Units 05:36 WBC 10.13 (4.8-10.8) K/ul Hgb 11.3 L (14.0-18.0) g/dl Hct 33.3 L (42.0-52.0) % Plt Count 230 (130-400) K/uL BMP 12/10/22 05:36 Sodium 135 L Potassium 4.3 Chloride 103 Carbon Dioxide 24 BUN 25 H Creatinine 1.24 Glucose 95 Calcium 8.9 (1) Wound, open, foot Encounter type: initial encounter Laterality: left Qualified Code(s): S91.302A - Unspecified open wound, left foot, initial encounter (2) Cellulitis Laterality: left Site of cellulitis: extremity Site of cellulitis of extremity: lower extremity Qualified Code(s): L03.116 - Cellulitis of left lower limb (7) CKD (chronic kidney disease), stage III Chronic kidney disease stage 3 subtype: unspecified whether 3a or 3b Qualified Code(s): N18.30 - Chronic kidney disease, stage 3 unspecified
[2022-12-10] MEDS: ENOXAPARIN INJ 40 MG/0.4 ML SYR SQ SCH (21:00)
[2022-12-10] MEDS: SIMVASTATIN 20 MG TAB PO SCH (21:29)
[2022-12-11] MEDS: metroNIDAZOLE 500 MG/100 ML BAG IV SCH ×3 (02:18→17:29)
[2022-12-11] MEDS ORDERED: SODIUM CHLORIDE 0.9% 1000ML 1,000 ML IV SCH ×2 (05:00→09:24)
[2022-12-11 07:05] LABS: Hematocrit (blood only) 33.2 % (42.0-52.0); Hemoglobin 11.7 g/dl (14.0-18.0); Mean Corpuscular Hemoglobin 34.3 pg (25.0-34.0); Mean Corpuscular Hgb Conc 35.2 g/dL (32.0-36.0); Mean Corpuscular Volume 97.4 fL (80.0-100.0); Mean Platelet Volume 9.4 fL (9.4-12.4); Platelet Count 269 K/uL (130-400); RDW Coefficient of Variation 13.7 % (11.5-14.5); RDW Standard Deviation 48.3 fL (36.4-46.3); Red Blood Count 3.41 M/uL (4.70-6.10); White Blood Count 9.94 K/ul (4.8-10.8)
[2022-12-11 07:32] LABS: BUN Creatinine Ratio 21.1 (10-20); Calcium 9.1 mg/dl (8.6-10.3); Creatinine Clr Calc Pharmacy 74.1 ml/min; Est GFR (African American) 78.7 ml/min; Est GFR (Non-African American) 67.9 ml/min; Potassium 4.2 mmol/L (3.5-5.1)
[2022-12-11] MEDS ORDERED: fentaNYL citrate PF 100 MCG/2 ML VIAL ONE (07:44)
[2022-12-11] MEDS ORDERED: MIDAZOLAM HCL 1 MG/ML 2ML VIAL ONE (07:44)
[2022-12-11] MEDS ORDERED: LIDOCAINE 1% LOCAL 20 ML VIAL ONE (07:44)
[2022-12-11] MEDS ORDERED: HEPARIN SOD (PORCINE) 1000 UNIT/ML ONE (07:44)
[2022-12-11] MEDS: CEFEPIME 2,000 MG in SYRINGE 0 ML IV SCH ×2 (07:49→15:33)
--- NOTE | 2022-12-11 07:49 | History & Physical Bridge Note ---
Date of Service December 11, 2022 History & Physical Bridge Note I have examined the patient, reviewed the History & Physical and in the interval since the performance of the History & Physical I have noted the following changes of clinical significance: no changes noted
--- NOTE | 2022-12-11 08:08 | Pre Anesthesia Assessment ---
Date of Service December 11, 2022 Pre Sedation Assessment Vital Signs Temp Pulse Pulse Resp BP BP Pulse Ox 12/11/22 07:23 37.1 C 100 H 20 186/107 H 98 12/11/22 04:00 36.7 C 78 20 165/76 H 95 12/10/22 23:22 93 H 12/10/22 23:00 36.9 C 84 19 144/76 H 96 12/10/22 21:46 108 H 18 162/71 H 94 12/10/22 20:36 37.2 C 105 H 21 155/72 H 97 12/10/22 15:00 105 H 12/10/22 16:59 37.4 C 113 H 16 180/81 H 96 12/10/22 11:15 36.9 C 84 18 176/76 H 96 O2 Del Method 12/11/22 07:23 Room Air 12/11/22 04:00 Room Air 12/10/22 23:22 12/10/22 23:00 Room Air 12/10/22 21:46 Room Air 12/10/22 20:36 Room Air 12/10/22 15:00 12/10/22 16:59 Room Air 12/10/22 11:15 Room Air Cardiovascular RRR, no murmur, no edema Respiratory normal respiratory effort, lungs clear to auscultation Pre-Sedation Airway Assessment Smoking Status: Never smoker Hx Sleep Apnea: No Short, Thick Neck: No Thyromental Distance: > or= 3.5 Finger Breadths Oral Cavity: + Dentures Mallampati Class: III ASA: ASA3 NPO Status Date of Last Intake of Fluids: 12/10/22 Time of Last Intake of Fluids: 23:00 Date of Last Intake of Solid Food: 12/10/22 Time of Last Intake of Solid Foods: 17:30 Procedure Planning Contraindications for Sedation: none Current Medications Reviewed: Yes Notes The planned sedation has been discussed with the patient. Informed Consent was obtained. I have identified the patient, determined the appropriateness of sedation and have assessed the patient immediately prior to the procedure. All medicine(s) and interventions are by my order.
[2022-12-11] MEDS ORDERED: VISIPAQUE IV PRN (08:50)
--- NOTE | 2022-12-11 09:00 | Procedure Note ---
Angiogram Post Procedure Fluoroscopy Time (minutes): 6.2 Conscious Sedation Time (minutes): 43 Radiation (mGy): 52 Contrast: 35 Post Operative Report Pre & Post Diagnosis Operation Date: 12/11/22 08:00 Pre-Op Diagnosis: Gangrenous Left Toes Post-Op Diagnosis: Gangrenous Left Toes I identified the patient and participated in the time-out.: Yes Procedure Operation Date: 12/11/22 08:00 Actual Procedures p Left Lower Extremity Arteriogram, Ultrasound Localization of Right Femoral Artery, Percutaneous Transluminal Angioplasty to Left Distal Anterior Tibial Artery, Moderate Sedation [id number](Right) - Maikol Freeman MD Surgeon Maikol Freeman MD Conduit Reamer Operator none Estimated Blood Loss 5 Findings Consistent with Post-Op Diagnosis Specimens none Anesthesia Type RN Sedation Complications none Disposition Accompanied Patient To Recovery: No Disposition: Recovery Room Indications This is a 72-year-old gentleman who presented with gangrene to the left first and second toes. He was found to have markedly calcified arteries to the left lower extremity as well as decreased waveforms on the foot. Arteriography was recommended. I have discussed the risks options and benefits of the procedure with the patient. The patient understands the risks options and benefits and agrees to the procedure. Description of Procedure The patient was taken the angiogram suite and placed in the supine position. Both groins were then prepped and draped in a sterile manner. A timeout was performed and the patient was identified. Using ultrasound the right common femoral artery was identified. It was patent but did have circumferential calcifications seen. Under ultrasound guidance the right common femoral artery was punctured. Wire was inserted and 5 [place]z sheath was inserted over the wire. Using a rim catheter and 035 wire the left iliac was cannulated in the right side. When the room was over the common iliac artery hand-injection was performed showing the common iliac external iliac internal iliac common femoral superficial femoral artery and profundofemoral artery origins to all be widely patent. We then reinserted the 035 wire and passed it down to the superficial femoral artery. Due to the angulation of the aortic bifurcation we used an 035 quick cross to get around into the distal external iliac and common femoral arteries with the quick cross. Arteriography was then performed of the left lower extremity. This showed the superficial femoral artery, popliteal artery posterior tibial and anterior tibial arteries to be patent. The peroneal artery appeared to be occluded. Posterior tibial artery was followed down and was occluded at the ankle level with small collateral flow to the foot. The anterior tibial artery was patent down through the foot into the dorsalis pedis however there was a tight near occlusive lesion just above the ankle in the anterior tibial artery. We then administered 3000 units of heparin. Due to the angulation of the aortic bifurcation we then inserted a Amplatzer wire. The 5 Kyr[place]z sheath was then exchanged for 6 [place]yr[place]z destination. We then inserted an 014 angled glide catheter over the Amplatzer wire. The wire was then exchanged for an 014 command wire which was able to be passed through the anterior tibial artery and through the lesion down to the dorsalis pedis. The angled glide catheter was removed. We did inserted an 014 Benedict 3 x 60 balloon. The tight lesion at the distal anterior tibial artery dilated nicely. There was a very tight waist present during inflation. We then pulled the balloon back after the artery was dilated. Completion angio showed this area to be widely patent with excellent flow to dorsalis pedis artery. No further treatment was needed. Wire and balloon were removed. The destination was removed and pressure was applied. Adequate hemostasis was noted. Sterile dressings were applied to the wound. There was an excellent triphasic Doppler signal heard on the dorsalis pedis post procedure.The patient left the operation room in satisfactory condition and tolerated the procedure well. All needle and sponge counts were correct at the end of the procedure. I attest to the content of the Intraoperative Record and any orders documented therein. Any exceptions are noted below.
--- NOTE | 2022-12-11 09:10 | Post Anesthesia Assessment ---
Date of Service December 11, 2022 Post Sedation Assessment Vital Signs Temp Pulse Pulse Resp BP BP BP 12/11/22 09:03 101 H 16 179/84 H 12/11/22 08:58 98 H 16 176/81 H 12/11/22 08:55 99 H 16 150/106 H 12/11/22 08:45 96 H 16 137/106 H 12/11/22 08:40 99 H 16 134/73 12/11/22 08:30 98 H 16 150/69 H 12/11/22 08:25 91 H 16 146/58 H 12/11/22 08:50 105 H 16 154/97 H 12/11/22 08:35 100 H 16 154/73 H 12/11/22 08:20 101 H 16 186/85 H 12/11/22 08:10 110 H 16 170/73 H 12/11/22 07:23 37.1 C 100 H 20 186/107 H 12/11/22 04:00 36.7 C 78 20 165/76 H 12/10/22 23:22 93 H 12/10/22 23:00 36.9 C 84 19 144/76 H 12/10/22 21:46 108 H 18 162/71 H 12/10/22 20:36 37.2 C 105 H 21 155/72 H 12/10/22 15:00 105 H 12/10/22 16:59 37.4 C 113 H 16 180/81 H 12/10/22 11:15 36.9 C 84 18 176/76 H Pulse Ox O2 Del Method O2 Flow Rate 12/11/22 09:03 96 Room Air, Oxymask 0 12/11/22 08:58 97 Room Air, Oxymask 0 12/11/22 08:55 98 Oxymask 4 12/11/22 08:45 98 Oxymask 4 12/11/22 08:40 97 Oxymask 4 12/11/22 08:30 97 Oxymask 4 12/11/22 08:25 96 Oxymask 4 12/11/22 08:50 98 Oxymask 4 12/11/22 08:35 96 Oxymask 4 12/11/22 08:20 100 Oxymask 4 12/11/22 08:10 100 Oxymask 4 12/11/22 07:23 98 Room Air 12/11/22 04:00 95 Room Air 12/10/22 23:22 12/10/22 23:00 96 Room Air 12/10/22 21:46 94 Room Air 12/10/22 20:36 97 Room Air 12/10/22 15:00 12/10/22 16:59 96 Room Air 12/10/22 11:15 96 Room Air Recovery Score Activity: Moves 4 extremities Respiration: Deep Breath/Cough Circulation: +/-20% PreAnes Value Consciousness: Fully Awake Oxygen Saturation: > 92% On Room Air Post Anesthesia Score: 10 Discharge Sedation Level of Care: Fast Track Phase II Post Sedation Plan On clinical assessment, the patient appears to have tolerated the sedation without complications. Patient is recovering as anticipated. Patient will continue to be monitored by nursing and may be discharged when sedation discharge criteria are met per below protocol. Upon Completions of procedure up to 15 minutes continue every 5 minute vital signs and the P.A.R. score; then discharge to a Phase I or Fast Track to Phase II per the following guidelines: * Discharge Patient to appropriate Phase II area if PAR is 8 or greater or return to pre- procedure baseline. The post - procedure orders will be as directed. * If PAR score is less than 8 or not return to pre-procedure baseline then patient will follow Phase I monitoring till PAR is reached for Phase II. The Phase I may be done in procedure room or may call to secure a Phase I area. * If naloxone or flumazenil are used for reversal, hold in Phase I for continued monitoring from when last reversal dose was given for a minimum of 60 minutes or longer pending the nurse and/or physician discretion of patient condition before discharge to Phase II. Please call the Sedation Physician to re-evaluate and complete post-note for discharge to Phase II area. Do NOT discharge from procedure sedation or Phase 1 until post- sedation evaluation note is complete by procedure /sedation MD Sedation Discharge Instructions to be given to the patient at discharge to home.
[2022-12-11] MEDS ORDERED: CLOPIDOGREL BISULFATE 300 MG TAB PO STA (09:24)
[2022-12-11] MEDS: INSULIN ASPART PER UNIT CHARGE SC SCH ×4 (09:34→22:27)
[2022-12-11] MEDS: HYDROmorphone INJ 0.5 MG/0.5 ML SYR IV PRN ×2 (11:59→19:39)
[2022-12-11] MEDS: amLODIPine BESYLATE 5 MG TAB PO SCH (12:22)
[2022-12-11] MEDS: lisinopril 20 MG TAB PO SCH (12:22)
[2022-12-11] MEDS: predniSONE 5 MG TAB PO SCH (12:22)
[2022-12-11] MEDS: ASPIRIN 81 MG ECTAB PO SCH (12:22)
[2022-12-11] MEDS: allopurinoL 300 MG TAB PO SCH (12:22)
[2022-12-11] MEDS: METOPROLOL TARTRATE 50 MG TAB PO SCH ×2 (12:23→20:06)
[2022-12-11] MEDS ORDERED: amLODIPine BESYLATE 5 MG TAB PO ONE (14:01)
[2022-12-11] MEDS ORDERED: lisinopril 20 MG TAB PO ONE (14:03)
--- NOTE | 2022-12-11 16:03 | Hospitalist Progress Note ---
Date of Service December 11, 2022 Assessment & Plan (1) Wound, open, foot: (2) Cellulitis: (3) Leg edema: (4) Hyponatremia: (5) Diabetes type 2, controlled: (6) Afib: (7) CKD (chronic kidney disease), stage III: (8) CAD (coronary artery disease): (9) S/P angioplasty with stent: (10) Chronic gout: (11) HTN (hypertension): Plan Left foot wound with cellulitis Gangrenous left toes-POA PAD In setting of DM II and chronic prednisone use MRSA swab negative -MRI Foot:Soft tissue edema is seen compatible with cellulitis. There is diffuse increased signal in the distal digits which is likely due to failure of fat suppression. No definite first digit osteomyelitis is seen. If clinical concern remains, study may be required with the first digit at the center of the field of view. -Venous Doppler:Currently there is normal compressibility of the deep venous system from the common femoral vein through the proximal calf veins. No superficial venous thrombosis is identified -Arterial Doppler:Atherosclerotic plaque with monophasic waveforms within the lower leg. Elevated peak systolic velocities within the superficial femoral artery compatible with a degree of luminal stenosis. No arterial occlusion identified. --S/P percutaneous transluminal angioplasty of left distal anterior tibial artery by Dr. Freeman on 12/11/2022 --Wound Cx: Acinetobacter, Pseudom Fluoresc/Put[place] --Blood cultures negative to date -- Vanco, Zosyn>> transition to cefepime, Flagyl --IV vancomycin discontinued on 12/10/2022 -- Appreciate orthopedics, vascular input Continue wound care --We will discuss with orthopedics for further recommendations after the procedure -Continue aspirin, statin Appreciate ID input Plan to transition to ciprofloxacin, Augmentin as able to complete 3-week course as recommended by ID. My benefit from following with ID upon discharge A-fib RVR H/O Afib --ECHO: Left ventricle is normal in size. Left ventricle systolic function is normal. EF 50 to 55%. Right ventricle systolic function is normal. Left atrium is moderately dilated. Left atrium is moderately dilated. Mild mitral and tricuspid regurgitation. Not on anticoagulation due to recurrent nosebleeds while on Coumadin Metoprolol increased to 50 mg twice daily Monitor and replace electrolytes as needed Consider cardiology evaluation if needed Heart rate controlled Hyponatremia Sodium levels improved to 135 Monitor sodium levels DM II: HbA1C 6.3 Continue ISS Monitor BGs HTN Chronic Gout: Continue allopurinol, prednisone Amlodipine increased to 10 mg daily, lisinopril increased to 40 mg daily for better control of blood pressure Monitor DVT Px: Lovenox SQ Code Status: FULL CODE Admission and Anticipated Discharge Date Admission Date: December 05, 2022 Subjective Patient is seen and examined at bedside No new complaints Foot pain is controlled Blood pressure elevated today Patient had angioplasty today Denies any chest pain, dyspnea, dizziness, nausea, abdominal pain Review of Systems Review of Systems: All systems reviewed & are unremarkable except as noted in Subjective Physical Exam Physical Exam: Physical Exam: Vitals signs as noted above General Appearance:Moderately built and nourished, no apparent distress Head: normocephalic, Atraumatic Eyes: normal inspection, EOMI Neck: supple, Trachea midline Respiratory/Chest: Normal breath sounds, CTA, No accessory muscle use Cardiovascular: Irregularly irregular, No murmur Abdomen/GI:Soft, Non tender, Bowel sounds present Extremities/Musculoskeletal:normal inspection, B/L LE edema, L toe necrotic in dressing Neurologic/Psych:AAOX3, grossly no focal neurological deficits Skin: normal color, warm Results & Data Results & Data Vital Signs (Past 12 Hours) Vital Signs Temp Pulse Pulse Resp BP BP BP 12/11/22 13:55 91 H 183/76 H 12/11/22 12:54 36.8 C 104 H 179/86 H 12/11/22 15:09 36.7 C 92 H 20 171/60 H 12/11/22 14:15 83 12/11/22 06:00 91 H 12/11/22 10:58 176/100 H 12/11/22 10:54 36.7 C 100 H 20 183/83 H 12/11/22 09:45 36.9 C 94 H 178/72 H 12/11/22 09:17 37 C 100 H 16 182/83 H 12/11/22 09:03 101 H 16 179/84 H 12/11/22 08:58 98 H 16 176/81 H 12/11/22 08:55 99 H 16 150/106 H 12/11/22 08:45 96 H 16 137/106 H 12/11/22 08:40 99 H 16 134/73 12/11/22 08:30 98 H 16 150/69 H 12/11/22 08:25 91 H 16 146/58 H 12/11/22 08:50 105 H 16 154/97 H 12/11/22 08:35 100 H 16 154/73 H 12/11/22 08:20 101 H 16 186/85 H 12/11/22 08:10 110 H 16 170/73 H 12/11/22 07:23 37.1 C 100 H 20 186/107 H 12/11/22 04:00 36.7 C 78 20 165/76 H Pulse Ox O2 Del Method O2 Flow Rate 12/11/22 13:55 95 Room Air 12/11/22 12:54 98 Room Air 12/11/22 15:09 95 Room Air 12/11/22 14:15 12/11/22 06:00 12/11/22 10:58 12/11/22 10:54 96 Room Air 12/11/22 09:45 97 Room Air 12/11/22 09:17 96 Room Air 12/11/22 09:03 96 Room Air, Oxymask 0 12/11/22 08:58 97 Room Air, Oxymask 0 12/11/22 08:55 98 Oxymask 4 12/11/22 08:45 98 Oxymask 4 12/11/22 08:40 97 Oxymask 4 12/11/22 08:30 97 Oxymask 4 12/11/22 08:25 96 Oxymask 4 12/11/22 08:50 98 Oxymask 4 12/11/22 08:35 96 Oxymask 4 12/11/22 08:20 100 Oxymask 4 12/11/22 08:10 100 Oxymask 4 12/11/22 07:23 98 Room Air 12/11/22 04:00 95 Room Air Laboratory Results Short CBC 12/11/22 Range/Units 06:07 WBC 9.94 (4.8-10.8) K/ul Hgb 11.7 L (14.0-18.0) g/dl Hct 33.2 L (42.0-52.0) % Plt Count 269 (130-400) K/uL BMP 12/11/22 06:07 Sodium 135 L Potassium 4.2 Chloride 103 Carbon Dioxide 24 BUN 23 Creatinine 1.09 Glucose 98 Calcium 9.1 (1) Wound, open, foot Encounter type: initial encounter Laterality: left Qualified Code(s): S91.302A - Unspecified open wound, left foot, initial encounter (2) Cellulitis Laterality: left Site of cellulitis: extremity Site of cellulitis of extremity: lower extremity Qualified Code(s): L03.116 - Cellulitis of left lower limb (7) CKD (chronic kidney disease), stage III Chronic kidney disease stage 3 subtype: unspecified whether 3a or 3b Qualified Code(s): N18.30 - Chronic kidney disease, stage 3 unspecified
[2022-12-11] MEDS: ENOXAPARIN INJ 40 MG/0.4 ML SYR SQ SCH ×3 (16:16→16:20)
[2022-12-11] MEDS: oxyCODONE HCL IR 5 MG TAB (IMMEDIATE RELEASE) PO PRN (17:29)
[2022-12-11] MEDS: SIMVASTATIN 20 MG TAB PO SCH (20:06)
[2022-12-12] MEDS: CEFEPIME 2,000 MG in SYRINGE 0 ML IV SCH ×3 (00:59→16:24)
[2022-12-12] MEDS: oxyCODONE HCL IR 5 MG TAB (IMMEDIATE RELEASE) PO PRN ×5 (01:08→20:18)
[2022-12-12] MEDS: metroNIDAZOLE 500 MG/100 ML BAG IV SCH ×3 (02:34→18:27)
[2022-12-12 07:09] LABS: Hematocrit (blood only) 35.5 % (42.0-52.0); Hemoglobin 12.5 g/dl (14.0-18.0); Mean Corpuscular Hemoglobin 34.4 pg (25.0-34.0); Mean Corpuscular Hgb Conc 35.2 g/dL (32.0-36.0); Mean Corpuscular Volume 97.8 fL (80.0-100.0); Mean Platelet Volume 9.3 fL (9.4-12.4); Platelet Count 288 K/uL (130-400); RDW Coefficient of Variation 13.6 % (11.5-14.5); RDW Standard Deviation 48.9 fL (36.4-46.3); Red Blood Count 3.63 M/uL (4.70-6.10)
[2022-12-12 07:26] LABS: BUN Creatinine Ratio 19.3 (10-20); Calcium 9.3 mg/dl (8.6-10.3); Creatinine Clr Calc Pharmacy 67.6 ml/min; Est GFR (African American) 70.8 ml/min; Est GFR (Non-African American) 61.1 ml/min; Potassium 4.1 mmol/L (3.5-5.1)
[2022-12-12] MEDS: ASPIRIN 81 MG ECTAB PO SCH (07:53)
[2022-12-12] MEDS: METOPROLOL TARTRATE 50 MG TAB PO SCH ×2 (07:54→20:19)
[2022-12-12] MEDS: amLODIPine BESYLATE 5 MG TAB PO SCH (07:54)
[2022-12-12] MEDS: CLOPIDOGREL BISULFATE 75 MG TAB PO SCH (07:54)
[2022-12-12] MEDS: predniSONE 5 MG TAB PO SCH (07:55)
[2022-12-12] MEDS: lisinopril 40 MG TAB PO SCH (07:55)
[2022-12-12] MEDS: allopurinoL 300 MG TAB PO SCH (07:55)
[2022-12-12] MEDS: INSULIN ASPART PER UNIT CHARGE SC SCH ×4 (10:32→20:13)
--- NOTE | 2022-12-12 16:30 | Hospitalist Progress Note ---
Date of Service December 12, 2022 Assessment & Plan (1) Wound, open, foot: (2) Cellulitis: (3) Leg edema: (4) Hyponatremia: (5) Diabetes type 2, controlled: (6) Afib: (7) CKD (chronic kidney disease), stage III: (8) CAD (coronary artery disease): (9) S/P angioplasty with stent: (10) Chronic gout: (11) HTN (hypertension): Plan Left foot wound with cellulitis Gangrenous left toes-POA PAD In setting of DM II and chronic prednisone use MRSA swab negative -MRI Foot:Soft tissue edema is seen compatible with cellulitis. There is diffuse increased signal in the distal digits which is likely due to failure of fat suppression. No definite first digit osteomyelitis is seen. If clinical concern remains, study may be required with the first digit at the center of the field of view. -Venous Doppler:Currently there is normal compressibility of the deep venous system from the common femoral vein through the proximal calf veins. No superficial venous thrombosis is identified -Arterial Doppler:Atherosclerotic plaque with monophasic waveforms within the lower leg. Elevated peak systolic velocities within the superficial femoral artery compatible with a degree of luminal stenosis. No arterial occlusion identified. --S/P percutaneous transluminal angioplasty of left distal anterior tibial artery by Dr. Freeman on 12/11/2022 --Wound Cx: Acinetobacter, Pseudom Fluoresc/Putida --Blood cultures negative to date -- Vanco, Zosyn>> transition to cefepime, Flagyl --IV vancomycin discontinued on 12/10/2022 -- Appreciate orthopedics, vascular input Continue wound care -Continue aspirin, statin Appreciate ID input Plan to transition to ciprofloxacin, Augmentin as able to complete 3-week course as recommended by ID as able Needs amputation of toe-Will discuss with Ortho/Vascular A-fib RVR H/O Afib --ECHO: Left ventricle is normal in size. Left ventricle systolic function is normal. EF 50 to 55%. Right ventricle systolic function is normal. Left atrium is moderately dilated. Left atrium is moderately dilated. Mild mitral and tricuspid regurgitation. Not on anticoagulation due to recurrent nosebleeds while on Coumadin Metoprolol increased to 50 mg twice daily Monitor and replace electrolytes as needed Consider cardiology evaluation if needed Heart rate controlled Hyponatremia Sodium levels improved to 136 Monitor sodium levels DM II: HbA1C 6.3 Continue ISS Monitor BGs HTN Chronic Gout: Continue allopurinol, prednisone Amlodipine increased to 10 mg daily, lisinopril increased to 40 mg daily for better control of blood pressure Monitor DVT Px: Lovenox SQ Code Status: FULL CODE Admission and Anticipated Discharge Date Admission Date: December 05, 2022 Subjective Patient is seen and examined at bedside Foot pain is improving No new complaints Discussed with vascular surgery and Orthopedics today. Denies any chest pain, dyspnea, dizziness, nausea, abdominal pain Review of Systems Review of Systems: All systems reviewed & are unremarkable except as noted in Subjective Physical Exam Physical Exam: Physical Exam: Vitals signs as noted above General Appearance:Moderately built and nourished, no apparent distress Head: normocephalic, Atraumatic Eyes: normal inspection, EOMI Neck: supple, Trachea midline Respiratory/Chest: Normal breath sounds, CTA, No accessory muscle use Cardiovascular: Irregularly irregular, No murmur Abdomen/GI:Soft, Non tender, Bowel sounds present Extremities/Musculoskeletal:normal inspection, B/L LE edema, L toe necrotic in dressing Neurologic/Psych:AAOX3, grossly no focal neurological deficits Skin: normal color, warm Results & Data Results & Data Vital Signs (Past 12 Hours) Vital Signs Temp Pulse Resp BP Pulse Ox O2 Del Method 12/12/22 11:50 36.8 C 88 18 142/65 H 96 Room Air 12/12/22 07:50 36.5 C 92 H 18 136/76 95 Room Air Laboratory Results Short CBC 12/12/22 Range/Units 06:25 WBC 10.90 H (4.8-10.8) K/ul Hgb 12.5 L (14.0-18.0) g/dl Hct 35.5 L (42.0-52.0) % Plt Count 288 (130-400) K/uL BMP 12/12/22 06:25 Sodium 136 Potassium 4.1 Chloride 101 Carbon Dioxide 25 BUN 23 Creatinine 1.19 Glucose 98 Calcium 9.3 (1) Wound, open, foot Encounter type: initial encounter Laterality: left Qualified Code(s): S91.302A - Unspecified open wound, left foot, initial encounter (2) Cellulitis Laterality: left Site of cellulitis: extremity Site of cellulitis of extremity: lower extremity Qualified Code(s): L03.116 - Cellulitis of left lower limb (7) CKD (chronic kidney disease), stage III Chronic kidney disease stage 3 subtype: unspecified whether 3a or 3b Qualified Code(s): N18.30 - Chronic kidney disease, stage 3 unspecified
[2022-12-12] MEDS: ENOXAPARIN INJ 40 MG/0.4 ML SYR SQ SCH (20:19)
[2022-12-12] MEDS: SIMVASTATIN 20 MG TAB PO SCH (20:19)
[2022-12-13] MEDS: oxyCODONE HCL IR 5 MG TAB (IMMEDIATE RELEASE) PO PRN ×5 (01:00→20:09)
[2022-12-13] MEDS: metroNIDAZOLE 500 MG/100 ML BAG IV SCH ×3 (01:08→18:25)
[2022-12-13 07:15] LABS: Hematocrit (blood only) 33.4 % (42.0-52.0); Hemoglobin 11.4 g/dl (14.0-18.0); Mean Corpuscular Hemoglobin 33.7 pg (25.0-34.0); Mean Corpuscular Hgb Conc 34.1 g/dL (32.0-36.0); Mean Corpuscular Volume 98.8 fL (80.0-100.0); Mean Platelet Volume 9.3 fL (9.4-12.4); Platelet Count 275 K/uL (130-400); RDW Coefficient of Variation 13.5 % (11.5-14.5); RDW Standard Deviation 48.5 fL (36.4-46.3); Red Blood Count 3.38 M/uL (4.70-6.10); White Blood Count 10.25 K/ul (4.8-10.8)
[2022-12-13 08:02] LABS: BUN Creatinine Ratio 22.8 (10-20); Calcium 9.1 mg/dl (8.6-10.3); Creatinine Clr Calc Pharmacy 58.6 ml/min; Est GFR (African American) 65.4 ml/min; Est GFR (Non-African American) 56.5 ml/min; Potassium 4.1 mmol/L (3.5-5.1)
[2022-12-13] MEDS: CLOPIDOGREL BISULFATE 75 MG TAB PO SCH (10:10)
[2022-12-13] MEDS: METOPROLOL TARTRATE 50 MG TAB PO SCH ×2 (10:10→21:16)
[2022-12-13] MEDS: predniSONE 5 MG TAB PO SCH (10:10)
[2022-12-13] MEDS: lisinopril 40 MG TAB PO SCH (10:10)
[2022-12-13] MEDS: allopurinoL 300 MG TAB PO SCH (10:10)
[2022-12-13] MEDS: amLODIPine BESYLATE 5 MG TAB PO SCH (10:11)
[2022-12-13] MEDS: ASPIRIN 81 MG ECTAB PO SCH (10:11)
[2022-12-13] MEDS: INSULIN ASPART PER UNIT CHARGE SC SCH ×4 (10:11→20:59)
[2022-12-13] MEDS: CEFEPIME 2,000 MG in SYRINGE 0 ML IV SCH ×3 (10:15→18:25)
--- NOTE | 2022-12-13 17:25 | Hospitalist Progress Note ---
Date of Service December 13, 2022 Assessment & Plan (1) Wound, open, foot: (2) Cellulitis: (3) Leg edema: (4) Hyponatremia: (5) Diabetes type 2, controlled: (6) Afib: (7) CKD (chronic kidney disease), stage III: (8) CAD (coronary artery disease): (9) S/P angioplasty with stent: (10) Chronic gout: (11) HTN (hypertension): Plan Left foot wound with cellulitis Gangrenous left toes-POA PAD In setting of DM II and chronic prednisone use MRSA swab negative -MRI Foot:Soft tissue edema is seen compatible with cellulitis. There is diffuse increased signal in the distal digits which is likely due to failure of fat suppression. No definite first digit osteomyelitis is seen. If clinical concern remains, study may be required with the first digit at the center of the field of view. -Venous Doppler:Currently there is normal compressibility of the deep venous system from the common femoral vein through the proximal calf veins. No superficial venous thrombosis is identified -Arterial Doppler:Atherosclerotic plaque with monophasic waveforms within the lower leg. Elevated peak systolic velocities within the superficial femoral artery compatible with a degree of luminal stenosis. No arterial occlusion identified. --S/P percutaneous transluminal angioplasty of left distal anterior tibial artery by Dr. Freeman on 12/11/2022 --Wound Cx: Acinetobacter, Pseudom Fluoresc/Putida --Blood cultures negative to date -- Vanco, Zosyn>> transition to cefepime, Flagyl --IV vancomycin discontinued on 12/10/2022 -- Appreciate orthopedics, vascular input Continue wound care -Continue aspirin, statin Appreciate ID input Plan to transition to ciprofloxacin, Augmentin as able to complete 3-week course as recommended by ID as able Needs amputation of toes Consulted podiatry to help with amputation A-fib RVR H/O Afib --ECHO: Left ventricle is normal in size. Left ventricle systolic function is normal. EF 50 to 55%. Right ventricle systolic function is normal. Left atrium is moderately dilated. Left atrium is moderately dilated. Mild mitral and tricuspid regurgitation. Not on anticoagulation due to recurrent nosebleeds while on Coumadin Metoprolol increased to 50 mg twice daily Monitor and replace electrolytes as needed Consider cardiology evaluation if needed Heart rate intermittently elevated likely secondary to pain Hyponatremia Sodium levels improved to 136 Monitor sodium levels DM II: HbA1C 6.3 Continue ISS Monitor BGs HTN Chronic Gout: Continue allopurinol, prednisone Amlodipine increased to 10 mg daily, lisinopril increased to 40 mg daily for better control of blood pressure Monitor DVT Px: Lovenox SQ Code Status: FULL CODE Admission and Anticipated Discharge Date Admission Date: December 05, 2022 Subjective Patient is seen and examined at bedside Reports intermittent foot pain No new complaints Denies any chest pain, dyspnea, dizziness, nausea, abdominal pain Review of Systems Review of Systems: All systems reviewed & are unremarkable except as noted in Subjective Physical Exam Physical Exam: Physical Exam: Vitals signs as noted above General Appearance:Moderately built and nourished, no apparent distress Head: normocephalic, Atraumatic Eyes: normal inspection, EOMI Neck: supple, Trachea midline Respiratory/Chest: Normal breath sounds, CTA, No accessory muscle use Cardiovascular: Irregularly irregular, No murmur Abdomen/GI:Soft, Non tender, Bowel sounds present Extremities/Musculoskeletal:normal inspection, B/L LE edema, L toe necrotic in dressing Neurologic/Psych:AAOX3, grossly no focal neurological deficits Skin: normal color, warm Results & Data Results & Data Vital Signs (Past 12 Hours) Vital Signs Temp Pulse Pulse Resp BP Pulse Ox O2 Del Method 12/13/22 15:00 71 12/13/22 15:55 36.8 C 96 H 16 145/63 H 98 Room Air 12/13/22 11:42 36.9 C 89 16 137/73 98 Room Air 12/13/22 08:00 89 12/13/22 08:00 36.8 C 65 16 152/79 H 98 Room Air Laboratory Results Short CBC 12/13/22 Range/Units 06:41 WBC 10.25 (4.8-10.8) K/ul Hgb 11.4 L (14.0-18.0) g/dl Hct 33.4 L (42.0-52.0) % Plt Count 275 (130-400) K/uL BMP 12/13/22 06:41 Sodium 136 Potassium 4.1 Chloride 102 Carbon Dioxide 26 BUN 29 H Creatinine 1.27 Glucose 103 H Calcium 9.1 (1) Wound, open, foot Encounter type: initial encounter Laterality: left Qualified Code(s): S91.302A - Unspecified open wound, left foot, initial encounter (2) Cellulitis Laterality: left Site of cellulitis: extremity Site of cellulitis of extremity: lower extremity Qualified Code(s): L03.116 - Cellulitis of left lower limb (7) CKD (chronic kidney disease), stage III Chronic kidney disease stage 3 subtype: unspecified whether 3a or 3b Qualified Code(s): N18.30 - Chronic kidney disease, stage 3 unspecified
[2022-12-13] MEDS: ENOXAPARIN INJ 40 MG/0.4 ML SYR SQ SCH (21:14)
[2022-12-13] MEDS: SIMVASTATIN 20 MG TAB PO SCH (21:15)
--- NOTE | 2022-12-13 22:31 | Orthopedic Consultation ---
Date of Consultation December 13, 2022 Assessment & Plan (1) Wound, open, foot: Patient seen, evaluated, and treated. I did review Patient's wounds with Patient. Both the left first and second toe are black. We reviewed need for amputation. I reviewed procedure in detail as well as postoperative recovery. I discussed expectations and patient's current weightbearing status. All questions answered. I have discussed procedure in detail as well as postoperative recovery. All potential risks, benefits, complications, alternatives, rehab, potential for incomplete relief of symptoms, need for further surgery, DVT, PE, , persistent pain, swelling, scarring, weakness, neurovascular, wound complications and potential for amputations were discussed with patient. Unwanted outcomes such as, but not limited to were reviewed including under correction, overcorrection, return of deformity, infection. All questions were answered. Patient has decided to proceed with procedure as indicated. History of Present Illness Attending Physician: Steve Ann MD History of Present Illness Patient is a 72 year old male seen at bedside for necrotic first and second toes of left foot. Patient is status post Day #2 right LE revascularization (DOS 12/11/22). Patient has PMH of Chronic Gout with tophi, DMII (not on meds), CKD III, CAD s/p stent, Afib (not on AC due to nose bleed), HTN. Patient presented to [facility] ED on 12/11/22 for worsening L big toe swelling, erythema and drainage. Allergies Allergy/AdvReac Type Severity Reaction Status Date / Time No Known Allergies Allergy Unverified 12/11/22 07:22 Home Medications Medication Instructions Recorded Confirmed Type allopurinol 300 mg tablet 300 mg PO QAM 12/05/22 12/05/22 History aspirin 81 mg tablet,delayed 81 mg PO DAILY 12/05/22 12/05/22 History release lisinopril 20 mg tablet 20 mg PO QAM 12/05/22 12/05/22 History meloxicam 15 mg tablet 15 mg PO QAM 12/05/22 12/05/22 History metoprolol tartrate 25 mg tablet 25 mg PO BID 12/05/22 12/05/22 History prednisone 5 mg tablet 5 mg PO QAM 12/05/22 12/05/22 History simvastatin 20 mg tablet 20 mg PO QPM 12/05/22 12/05/22 History Patient History Medical History Afib CAD (coronary artery disease) Chronic gout CKD (chronic kidney disease), stage III Diabetes type 2, controlled HTN (hypertension) Peripheral arterial disease Tophi gouty Surgical History S/P angioplasty with stent Social History Smoking Status: Never smoker Hx Alcohol Use: Yes Alcohol type: beer Hx Substance Use: No Preferred Language: [place] Islander Communication Ability: Effective Ring Sorter Required: No Beliefs That Will Affect Care: None Current Living Situation: Alone Feels Safe at Home: Yes Assistive Devices: Cane Review of Systems Review of Systems: All systems reviewed & are unremarkable except as noted in HPI & below Physical Exam Constitutional: well developed and well nourished Eyes: normal visual mendiola by confrontation Neck: trachea midline Respiratory: normal respiratory effort Cardiovascular: Pedal pulses non grossly palpable. Skin: Gangrene second and first digits of left foot. Neurologic: Decreased epicritic sensation Psychiatric: Orientation: alert and oriented x 3 Results & Data Vital Signs (Past 12 Hours) Vital Signs Temp Pulse Pulse Resp BP BP Pulse Ox 12/13/22 19:30 36.8 C 114 H 20 192/73 H 99 12/13/22 15:00 71 12/13/22 15:55 36.8 C 96 H 16 145/63 H 98 12/13/22 11:42 36.9 C 89 16 137/73 98 O2 Del Method 12/13/22 19:30 Room Air 12/13/22 15:00 12/13/22 15:55 Room Air 12/13/22 11:42 Room Air (1) Wound, open, foot Encounter type: initial encounter Laterality: left Qualified Code(s): S91.302A - Unspecified open wound, left foot, initial encounter
[2022-12-14] MEDS: oxyCODONE HCL IR 5 MG TAB (IMMEDIATE RELEASE) PO PRN ×5 (00:30→19:54)
[2022-12-14] MEDS: CEFEPIME 2,000 MG in SYRINGE 0 ML IV SCH ×3 (00:31→19:55)
[2022-12-14] MEDS: metroNIDAZOLE 500 MG/100 ML BAG IV SCH ×3 (01:49→18:56)
[2022-12-14] MEDS: INSULIN ASPART PER UNIT CHARGE SC SCH ×4 (08:25→20:54)
[2022-12-14] MEDS: allopurinoL 300 MG TAB PO SCH (08:29)
[2022-12-14] MEDS: amLODIPine BESYLATE 5 MG TAB PO SCH (08:29)
[2022-12-14] MEDS: predniSONE 5 MG TAB PO SCH (08:30)
[2022-12-14] MEDS: CLOPIDOGREL BISULFATE 75 MG TAB PO SCH (08:30)
[2022-12-14] MEDS: METOPROLOL TARTRATE 50 MG TAB PO SCH ×2 (08:30→19:56)
[2022-12-14] MEDS: ASPIRIN 81 MG ECTAB PO SCH (08:30)
[2022-12-14] MEDS: lisinopril 40 MG TAB PO SCH (08:30)
[2022-12-14 09:18] LABS: Creatinine Clr Calc Pharmacy 53.5 ml/min; Est GFR (African American) 58.7 ml/min; Est GFR (Non-African American) 50.6 ml/min
[2022-12-14] MEDS ORDERED: ePHEDrine sulfate 50 MG/ML AMP IV PRN (15:28)
[2022-12-14] MEDS ORDERED: ONDANSETRON INJ 2 MG/ML 2 ML VIAL IV PRN (15:28)
[2022-12-14] MEDS ORDERED: HYDROmorphone INJ 2 MG/ML SYR/VIAL IV PRN (15:28)
[2022-12-14] MEDS ORDERED: ATROPINE SULFATE 0.1 MG/ML 10ML SYR IV PRN (15:28)
[2022-12-14] MEDS ORDERED: fentaNYL citrate PF 100 MCG/2 ML VIAL IV PRN (15:28)
--- NOTE | 2022-12-14 15:28 | Anesthesiology Consultation ---
Date of Service December 14, 2022 Assessment & Plan ASA ASA3 Proposed Anesthesia Anesthesia Type: MAC Risk / Benefits Reviewed With: PT / POA / Parent / Guardian, Accepts Plan and Informed Consent Obtained History Surgery Operation Date: 12/11/22 08:00 Proposed Procedures p Left Lower Extremity Angiogram with Intervention - Maikol Freeman MD Operation Date: 12/14/22 07:00 Proposed Procedures p Left 1st, 2nd Ray Amputation - Baldo Lundy, DPM, MS Height/Weight Height: 6 ft Weight: 92.1 kg Allergies Allergy/AdvReac Type Severity Reaction Status Date / Time No Known Allergies Allergy Unverified 12/11/22 07:22 Medications Home Medications Medication Instructions Recorded Confirmed Last Taken allopurinol 300 mg tablet 300 mg PO QAM 12/05/22 12/05/22 12/05/22 aspirin 81 mg tablet,delayed 81 mg PO DAILY 12/05/22 12/05/22 12/05/22 release lisinopril 20 mg tablet 20 mg PO QAM 12/05/22 12/05/22 12/05/22 meloxicam 15 mg tablet 15 mg PO QAM 12/05/22 12/05/22 12/05/22 metoprolol tartrate 25 mg tablet 25 mg PO BID 12/05/22 12/05/22 12/05/22 prednisone 5 mg tablet 5 mg PO QAM 12/05/22 12/05/22 12/05/22 simvastatin 20 mg tablet 20 mg PO QPM 12/05/22 12/05/22 12/04/22 Active Medications Generic Name Dose Route Start Last Admin Trade Name Freq PRN Reason Stop Dose Admin Acetaminophen 650 mg 12/05/22 19:29 12/07/22 16:18 Acetaminophen 325 Mg Tab PO 01/04/23 19:28 650 mg Q4H PRN Administration pain/fever Allopurinol 300 mg 12/06/22 09:00 12/14/22 08:29 Allopurinol 300 Mg Tab PO 01/05/23 08:59 300 mg QAM RON Administration Amlodipine Besylate 10 mg 12/12/22 09:00 12/14/22 08:29 Amlodipine Besylate 5 Mg Tab PO 01/11/23 08:59 10 mg QAM RON Administration Aspirin 81 mg 12/06/22 09:00 12/14/22 08:30 Aspirin 81 Mg Ectab PO 01/05/23 08:59 81 mg DAILY RON Administration Clopidogrel Bisulfate 75 mg 12/12/22 09:00 12/14/22 08:30 Clopidogrel Bisulfate 75 Mg Tab PO 01/11/23 08:59 75 mg QAM RON Administration Enoxaparin Sodium 40 mg 12/12/22 21:00 12/13/22 21:14 Enoxaparin Inj 40 Mg/0.4 Ml Syr SQ 01/11/23 20:59 40 mg QPM RON Administration Hydromorphone HCl 0.5 mg 12/07/22 19:54 12/11/22 19:39 Hydromorphone Inj 0.5 Mg/0.5 Ml Syr IV 12/21/22 19:53 0.5 mg Q4H PRN Administration Pain Metronidazole 500 mg in 100 mls @ 100 mls/hr 12/09/22 10:00 12/14/22 11:40 Flagyl IV 01/20/23 09:59 Infused Q8H RON Infusion Insulin Aspart 0 units 12/05/22 21:00 12/14/22 12:31 Insulin Aspart Per Unit Charge SC 01/04/23 20:59 Not Given ACHS RON Iodixanol 35 ml 12/11/22 08:50 12/11/22 08:51 Visipaque IV 12/15/22 08:49 35 ml UD PRN Administration Interaction Checking Lisinopril 40 mg 12/12/22 09:00 12/14/22 08:30 Lisinopril 40 Mg Tab PO 01/11/23 08:59 40 mg QAM RON Administration Metoprolol Tartrate 50 mg 12/09/22 21:00 12/14/22 08:30 Metoprolol Tartrate 50 Mg Tab PO 01/08/23 20:59 50 mg BID RON Administration Oxycodone HCl 10 mg 12/08/22 13:42 12/14/22 14:29 Oxycodone Hcl Ir 5 Mg Tab (Immediate Release) PO 12/20/22 10:51 10 mg Q4H PRN Administration Pain Prednisone 5 mg 12/06/22 09:00 12/14/22 08:30 Prednisone 5 Mg Tab PO 01/05/23 08:59 5 mg QAM RON Administration Simvastatin 20 mg 12/05/22 21:00 12/13/22 21:15 Simvastatin 20 Mg Tab PO 01/04/23 20:59 20 mg QPM RON Administration NPO Date Last Intake of Fluids: 12/10/22 Time Last Intake of Fluids: 23:45 Date Last Intake of Solids: 12/10/22 Time Last Intake of Solids: 17:30 Past Medical History Medical History Afib CAD (coronary artery disease) Chronic gout CKD (chronic kidney disease), stage III Diabetes type 2, controlled HTN (hypertension) Peripheral arterial disease Tophi gouty Exercise / Class Metabolic Activity II 4-5 Yardwork/Stairs/Walk up hill Past Surgical History Surgical History S/P angioplasty with stent Past Anesthesia History No Hx of Anesthesia Complications and No Family Hx of Anesthesia Complications History of PONV No Hx of PONV and No Hx of Motion Sickness Social History Smoking Status: Never smoker Hx Alcohol Use: Yes Alcohol type: beer alcohol intake frequency: a few times a week Hx Substance Use: No substance use type: does not use Review of Systems denies fever/cough/ colds/ chest pain/ SOB/ TONEY denies TONEY Physical Exam Vital Signs Last Vital Signs Temp 36.7 C 12/14/22 11:36 Pulse 91 H 12/14/22 11:36 Resp 18 12/14/22 11:36 BP 134/86 12/14/22 11:36 Pulse Ox 96 12/14/22 11:36 O2 Del Method Room Air 12/14/22 11:36 O2 Flow Rate 0 12/11/22 09:03 ENMT Mouth: + edentulous; no TMJ abnormality and no dentition abnormality Thyromental Distance: > or= 3.5 Finger Breadths Mallampati Class: III Neck neck extension not limited Respiratory normal respiratory effort; no respiratory distress Auscultation: lungs clear to auscultation bilaterally Cardiovascular Rate/Rhythm: regular rate and regular rhythm Neurologic moves all extremities Psychiatric Orientation: alert and oriented x 3 Testing Laboratory Results 12/13/22 06:41 12/14/22 08:19 PT 11.3 Seconds (9.0-12.0) 12/05/22 14:00 INR 1.1 (0.9-1.1) 12/05/22 14:00 Hemoglobin A1c 6.3 % (4.5-5.6) H 12/06/22 06:11 Urine Color Yellow 12/05/22 14:03 Urine Appearance Clear (Clear) 12/05/22 14:03 Urine pH 5.5 (4.5-7.5) 12/05/22 14:03 Ur Specific [place] 1.017 (1.000-1.030) 12/05/22 14:03 Urine Protein 1+ (Negative) H 12/05/22 14:03 Urine Glucose (UA) Trace (Negative) H 12/05/22 14:03 Urine Ketones Negative (Negative) 12/05/22 14:03 Urine Nitrite Negative (Negative) 12/05/22 14:03 Ur Leukocyte Esterase Negative (Negative) 12/05/22 14:03 Urine WBC (Auto) 1-5 /hpf (0-5) 12/05/22 14:03 Urine RBC (Auto) 0-4 /hpf (0-4) 12/05/22 14:03 U Hyaline Cast (Auto) 1-5 /lpf (0-5) 12/05/22 14:03 U Epithel Cells (Auto) 5-10 /lpf (0-5) H 12/05/22 14:03 Urine Bacteria (Auto) Negative (Negative) 12/05/22 14:03 12/05/22 14:00 Aerobic Blood Culture - Final Blood No growth in Aerobic bottle after 5 days. Anaerobic Blood Culture - Final No growth in Anaerobic bottle after 5 days. 12/05/22 14:00 Aerobic Blood Culture - Final Blood No growth in Aerobic bottle after 5 days. Anaerobic Blood Culture - Final No growth in Anaerobic bottle after 5 days. 12/05/22 14:30 Gram Stain - Final Toe Wound Culture - Final Acinetobacter lwoffii group Pseudom fluoresc/putida 12/14/22 12/14/22 11:54 07:40 POC Glucose 115 H 89
[2022-12-14] MEDS ORDERED: MIDAZOLAM HCL 1 MG/ML 2ML VIAL ONE (16:08)
[2022-12-14] MEDS ORDERED: fentaNYL citrate PF 100 MCG/2 ML VIAL ONE (16:08)
--- NOTE | 2022-12-14 16:08 | History & Physical Bridge Note ---
Date of Service December 14, 2022 History & Physical Bridge Note I have examined the patient, reviewed the History & Physical and in the interval since the performance of the History & Physical I have noted the following changes of clinical significance: no changes noted
[2022-12-14] MEDS ORDERED: BUPIVACAINE 0.5 % 5 MG/1 ML MPF 30ML VIAL ONE (16:13)
[2022-12-14] MEDS ORDERED: ONDANSETRON INJ 2 MG/ML 2 ML VIAL ONE (16:27)
[2022-12-14] MEDS ORDERED: LIDOCAINE 2% MPF LOCAL 5 ML VIAL ONE (16:27)
[2022-12-14] MEDS ORDERED: PROPOFOL IV EMULSION 10 MG/ML 20 ML VIAL IV ONE ×2 (16:27→16:57)
[2022-12-14] MEDS ORDERED: PHENYLEPHRINE 100MCG/ML 5ML SYR ONE (16:49)
--- NOTE | 2022-12-14 17:44 | Post Operative Brief Note ---
Immediate Post Op Note v1 Date of Surgery December 14, 2022 Pre & Post Diagnosis Operation Date: 12/14/22 07:00 Pre-Op Diagnosis: Left foot open wound Post-Op Diagnosis: Left foot open wound I identified the patient and participated in the time-out.: Yes Procedure Operation Date: 12/14/22 07:00 Actual Procedures p Left 1st, 2nd Ray Amputation(Left) - Baldo Lundy DPM, MS Surgeon Baldo Lundy DPM, MS Land Manager none Estimated Blood Loss 20 Findings Consistent with Post-Op Diagnosis consistent with pre operative diagnosis Anesthesia Type RN Sedation
--- NOTE | 2022-12-14 17:59 | Operative Report ---
Post Operative Report Pre & Post Diagnosis Operation Date: 12/14/22 07:00 Pre-Op Diagnosis: Left foot open wound Post-Op Diagnosis: Left foot open wound I identified the patient and participated in the time-out.: Yes Procedure Operation Date: 12/14/22 07:00 Actual Procedures p Left 1st, 2nd Ray Amputation(Left) - Baldo Lundy DPM, MS Surgeon Baldo Lundy DPM, MS Collections Officer none Estimated Blood Loss 20 Findings Consistent with Post-Op Diagnosis Consistent with pre-operative diagnosis Specimens 1.) left first and second ray. Description of Procedure History of present illness: Patient is a 72 year old male who is seen for necrotic left first and second toes requiring amputation. Patient has history of tophaceous gout surrounding digits and peripheral vascular disease with recent revascularization (DOS: 12/11/22). We reviewed ray resections and possible need for additional surgical care. All questions answered. Discussed procedure in detail and postoperative recovery. All potential risks, benefits, complications, alternatives, rehab, potential for incomplete relief of symptoms, need for further surgery, DVT, PE, , persistent pain, swelling, scarring, weakness, neurovascular, wound complications and potential for amputations were discussed with patient. Unwanted outcomes such as, but not limited to were reviewed including under correction, overcorrection, return of deformity, infection. All questions were answered. Patient has decided to proceed with procedure as indicated. Preoperative diagnosis: 1.) Gangrene foot left 2.) Tophaceous Gout left foot 3.) Peripheral Vascular Disease Postoperative diagnosis: same Name of operation: 1.) Left first ray resection 2.) Left second ray resection Surgeon: Dr. Lundy Collections Officer: None Anesthesia: Monitored anesthesia care Hemostasis: pneumatic ankle tourniquet Estimated blood loss: minimal Procedure in detail: Under mild sedation the patient was brought in the operating room placed on the operating table in supine position. A pneumatic calf tourniquet was then placed about the patient's left calf. Following IV sedation the foot was prepped scrubbed and draped in usual aseptic manner. Attention was then directed to the gangrene left foot. Utilizing a sharp, sterile, #15 blade a fish mount incision is placed over the left first and second metatarsals. The incision was deepened through subcutaneous tissue using sharp blunt dissection. Care was taken to identify and retract all vital neurovascular structures. All bleeders were ligated and cauterized necessary. An oscillating saw was used to remove a portion of the first and second metatarsal. The metatarsal bones and first and second digits of the left foot are placed on the back table. They are labeled excised left first and second rays and sent to pathology. 1 L of lactated Ringer was then irrigated with low flow into the wounds. Fu rther nonviable soft tissue was excised as needed including copious amounts of tophaceous gout. Upon completion of the procedure the incisions over the first and second rays were closed with 3-0 nylon. Upon completion of the procedure the left foot was dressed with sterile dressing consisting of 4 x 4's Hellen Kerlix ABD. The Patient tolerated the procedure and anesthesia well. He was transferred to recovery room vital signs stable and vascular status intact all toes of the left foot following. Following a period of postoperative monitoring the patient will be readmitted to floor with the c ontinuation of all preoperative orders. I attest to the content of the Intraoperative Record and any orders documented therein. Any exceptions are noted below.
--- NOTE | 2022-12-14 18:25 | Anesthesiology Progress Note ---
Date of Service December 14, 2022 Anesthesia Post Procedure Vital Signs Vital Signs: Temp Pulse Pulse Pulse Resp BP BP 12/14/22 18:15 36.9 C 95 H 16 160/58 H 12/14/22 18:05 86 18 142/61 H 12/14/22 17:50 36.4 C L 83 20 153/72 H 12/14/22 17:40 69 13 120/62 12/14/22 17:30 88 12 142/79 H 12/14/22 17:27 36.5 C 82 16 118/64 12/14/22 15:10 36.6 C 91 H 18 132/76 12/14/22 11:36 36.7 C 91 H 18 134/86 12/14/22 08:56 36.6 C 88 18 142/86 H 12/14/22 04:07 36.8 C 84 20 138/84 12/13/22 22:00 80 12/13/22 23:46 37.4 C 74 20 136/70 12/13/22 19:30 36.8 C 114 H 20 192/73 H Pulse Ox O2 Del Method O2 Flow Rate 12/14/22 18:15 97 Room Air 12/14/22 18:05 93 Room Air 12/14/22 17:50 95 Room Air 12/14/22 17:40 93 Room Air 12/14/22 17:30 96 Oxymask 5 12/14/22 17:27 99 Oxymask 5 12/14/22 15:10 97 Room Air 12/14/22 11:36 96 Room Air 12/14/22 08:56 98 Room Air 12/14/22 04:07 95 Room Air 12/13/22 22:00 12/13/22 23:46 95 Room Air 12/13/22 19:30 99 Room Air Pain Intensity Left Great Toe: Pain Intensity: 7 Transfer of Care Handoff Completed per policy Notes Mental Status: alert / awake / arousable and participated in evaluation Patient Amnestic to Procedure: Yes Nausea / Vomiting: adequately controlled Pain: adequately controlled Airway Patency, RR, SpO2: stable & adequate BP & HR: stable & adequate Hydration State: stable & adequate Anesthetic Complications: no major complications apparent and Pt Satisfied with anesthetic care
--- NOTE | 2022-12-14 18:43 | Hospitalist Progress Note ---
Date of Service December 14, 2022 Assessment & Plan (1) Wound, open, foot: (2) Cellulitis: (3) Leg edema: (4) Hyponatremia: (5) Diabetes type 2, controlled: (6) Afib: (7) CKD (chronic kidney disease), stage III: (8) CAD (coronary artery disease): (9) S/P angioplasty with stent: (10) Chronic gout: (11) HTN (hypertension): Plan Left foot wound with cellulitis Gangrenous left toes-POA PAD In setting of DM II and chronic prednisone use MRSA swab negative --S/P left first and second toe amputation by Dr. Lundy on 12/14/22 -MRI Foot:Soft tissue edema is seen compatible with cellulitis. There is diffuse increased signal in the distal digits which is likely due to failure of fat suppression. No definite first digit osteomyelitis is seen. If clinical concern remains, study may be required with the first digit at the center of the field of view. -Venous Doppler:Currently there is normal compressibility of the deep venous system from the common femoral vein through the proximal calf veins. No superficial venous thrombosis is identified -Arterial Doppler:Atherosclerotic plaque with monophasic waveforms within the lower leg. Elevated peak systolic velocities within the superficial femoral artery compatible with a degree of luminal stenosis. No arterial occlusion identified. --S/P percutaneous transluminal angioplasty of left distal anterior tibial artery by Dr. Freeman on 12/11/2022 --Wound Cx: Acinetobacter, Pseudom Fluoresc/Putida --Blood cultures negative to date -- Vanco, Zosyn>> transition to cefepime, Flagyl --IV vancomycin discontinued on 12/10/2022 -- Appreciate orthopedics, vascular input Continue wound care -Continue aspirin, statin Appreciate ID input Plan to transition to ciprofloxacin, Augmentin as able to complete 3-week course as recommended by ID as able Appreciate podiatry help Continue wound care A-fib RVR H/O Afib --ECHO: Left ventricle is normal in size. Left ventricle systolic function is normal. EF 50 to 55%. Right ventricle systolic function is normal. Left atrium is moderately dilated. Left atrium is moderately dilated. Mild mitral and tricuspid regurgitation. Not on anticoagulation due to recurrent nosebleeds while on Coumadin Metoprolol increased to 50 mg twice daily Monitor and replace electrolytes as needed Consider cardiology evaluation if needed Heart rate intermittently elevated likely secondary to pain Hyponatremia Sodium levels improved to 136 Monitor sodium levels DM II: HbA1C 6.3 Continue ISS Monitor BGs HTN Chronic Gout: Continue allopurinol, prednisone Amlodipine increased to 10 mg daily, lisinopril increased to 40 mg daily for better control of blood pressure Monitor DVT Px: Lovenox SQ Code Status: FULL CODE Admission and Anticipated Discharge Date Admission Date: December 05, 2022 Subjective Patient is seen and examined at bedside Plan for amputation of toes today foot pain is controlled Denies any chest pain, dyspnea, dizziness, nausea, abdominal pain Review of Systems Review of Systems: All systems reviewed & are unremarkable except as noted in Subjective Physical Exam Physical Exam: Physical Exam: Vitals signs as noted above General Appearance:Moderately built and nourished, no apparent distress Head: normocephalic, Atraumatic Eyes: normal inspection, EOMI Neck: supple, Trachea midline Respiratory/Chest: Normal breath sounds, CTA, No accessory muscle use Cardiovascular: Irregularly irregular, No murmur Abdomen/GI:Soft, Non tender, Bowel sounds present Extremities/Musculoskeletal:normal inspection, B/L LE edema, L toe necrotic in dressing Neurologic/Psych:AAOX3, grossly no focal neurological deficits Skin: normal color, warm Results & Data Results & Data Vital Signs (Past 12 Hours) Vital Signs Temp Pulse Pulse Resp BP BP Pulse Ox 12/14/22 18:15 36.9 C 95 H 16 160/58 H 97 12/14/22 18:05 86 18 142/61 H 93 12/14/22 17:50 36.4 C L 83 20 153/72 H 95 12/14/22 17:40 69 13 120/62 93 12/14/22 17:30 88 12 142/79 H 96 12/14/22 17:27 36.5 C 82 16 118/64 99 12/14/22 15:10 36.6 C 91 H 18 132/76 97 12/14/22 11:36 36.7 C 91 H 18 134/86 96 12/14/22 08:56 36.6 C 88 18 142/86 H 98 O2 Del Method O2 Flow Rate 12/14/22 18:15 Room Air 12/14/22 18:05 Room Air 12/14/22 17:50 Room Air 12/14/22 17:40 Room Air 12/14/22 17:30 Oxymask 5 12/14/22 17:27 Oxymask 5 12/14/22 15:10 Room Air 12/14/22 11:36 Room Air 12/14/22 08:56 Room Air Laboratory Results [facility] 12/14/22 08:19 Creatinine 1.39 (1) Wound, open, foot Encounter type: initial encounter Laterality: left Qualified Code(s): S91.302A - Unspecified open wound, left foot, initial encounter (2) Cellulitis Laterality: left Site of cellulitis: extremity Site of cellulitis of extremity: lower extremity Qualified Code(s): L03.116 - Cellulitis of left lower limb (7) CKD (chronic kidney disease), stage III Chronic kidney disease stage 3 subtype: unspecified whether 3a or 3b Qualified Code(s): N18.30 - Chronic kidney disease, stage 3 unspecified
[2022-12-14] MEDS: ENOXAPARIN INJ 40 MG/0.4 ML SYR SQ SCH (19:55)
[2022-12-14] MEDS: SIMVASTATIN 20 MG TAB PO SCH (19:56)
[2022-12-15] MEDS: oxyCODONE HCL IR 5 MG TAB (IMMEDIATE RELEASE) PO PRN ×5 (00:10→20:01)
[2022-12-15] MEDS: metroNIDAZOLE 500 MG/100 ML BAG IV SCH (02:13)
[2022-12-15] MEDS: HYDROmorphone INJ 0.5 MG/0.5 ML SYR IV PRN ×3 (03:20→21:42)
[2022-12-15 06:13] LABS: Hematocrit (blood only) 31.5 % (42.0-52.0); Hemoglobin 10.9 g/dl (14.0-18.0); Mean Corpuscular Hemoglobin 33.9 pg (25.0-34.0); Mean Corpuscular Hgb Conc 34.6 g/dL (32.0-36.0); Mean Corpuscular Volume 97.8 fL (80.0-100.0); Mean Platelet Volume 9.5 fL (9.4-12.4); Platelet Count 297 K/uL (130-400); RDW Coefficient of Variation 13.5 % (11.5-14.5); RDW Standard Deviation 48.7 fL (36.4-46.3); Red Blood Count 3.22 M/uL (4.70-6.10); White Blood Count 10.58 K/ul (4.8-10.8)
[2022-12-15 06:25] LABS: Creatinine Clr Calc Pharmacy 46.5 ml/min; Est GFR (African American) 49.5 ml/min; Est GFR (Non-African American) 42.7 ml/min; Potassium 4.7 mmol/L (3.5-5.1)
[2022-12-15] MEDS ORDERED: SODIUM CHLORIDE 0.9% 1000ML 1,000 ML IV ONE (08:34)
[2022-12-15] MEDS: INSULIN ASPART PER UNIT CHARGE SC SCH ×4 (09:35→20:35)
[2022-12-15] MEDS: CLOPIDOGREL BISULFATE 75 MG TAB PO SCH (09:40)
[2022-12-15] MEDS: ASPIRIN 81 MG ECTAB PO SCH (09:40)
[2022-12-15] MEDS: METOPROLOL TARTRATE 50 MG TAB PO SCH ×2 (09:40→20:02)
[2022-12-15] MEDS: predniSONE 5 MG TAB PO SCH (09:40)
[2022-12-15] MEDS: allopurinoL 300 MG TAB PO SCH (09:40)
[2022-12-15] MEDS: amLODIPine BESYLATE 5 MG TAB PO SCH (09:41)
[2022-12-15] MEDS: AMOXICILLIN/CLAVULANATE 500 MG TAB PO SCH ×2 (09:51→17:56)
[2022-12-15] MEDS: CEFEPIME 2,000 MG in SYRINGE 0 ML IV SCH (10:56)
[2022-12-15] MEDS: CIPROFLOXACIN 500 MG TAB PO SCH ×2 (12:21→20:03)
[2022-12-15] MEDS: POLYETHYLENE (MIRALAX) 17 GM PACK PO SCH (15:16)
[2022-12-15] MEDS: DOCUSATE SODIUM 100 MG CAP PO SCH ×2 (15:16→20:03)
--- NOTE | 2022-12-15 16:59 | Hospitalist Progress Note ---
Date of Service December 15, 2022 Assessment & Plan (1) Wound, open, foot: (2) Cellulitis: (3) Leg edema: (4) Hyponatremia: (5) Diabetes type 2, controlled: (6) Afib: (7) CKD (chronic kidney disease), stage III: (8) CAD (coronary artery disease): (9) S/P angioplasty with stent: (10) Chronic gout: (11) HTN (hypertension): Plan Left foot wound with cellulitis Gangrenous left toes-POA PAD In setting of DM II and chronic prednisone use MRSA swab negative --S/P left first and second toe amputation by Dr. Lundy on 12/14/22 -MRI Foot:Soft tissue edema is seen compatible with cellulitis. There is diffuse increased signal in the distal digits which is likely due to failure of fat suppression. No definite first digit osteomyelitis is seen. If clinical concern remains, study may be required with the first digit at the center of the field of view. -Venous Doppler:Currently there is normal compressibility of the deep venous system from the common femoral vein through the proximal calf veins. No superficial venous thrombosis is identified -Arterial Doppler:Atherosclerotic plaque with monophasic waveforms within the lower leg. Elevated peak systolic velocities within the superficial femoral artery compatible with a degree of luminal stenosis. No arterial occlusion identified. --S/P percutaneous transluminal angioplasty of left distal anterior tibial artery by Dr. Freeman on 12/11/2022 --Wound Cx: Acinetobacter, Pseudom Fluoresc/Putida --Blood cultures negative to date -- Vanco, Zosyn>> transition to cefepime, Flagyl (DCed on 12/15/22)>> transition to ciprofloxacin 500 mg twice a day, Augmentin for 100 mg every 8 hours as recommended by ID --IV vancomycin discontinued on 12/10/2022 -- Appreciate orthopedics, vascular input Continue wound care -Continue aspirin, statin Appreciate ID input Plan to transition to ciprofloxacin, Augmentin as able to complete 3-week course as recommended by ID as able Appreciate podiatry help Continue wound care Nonweightbearing left lower extremity A-fib RVR H/O Afib --ECHO: Left ventricle is normal in size. Left ventricle systolic function is normal. EF 50 to 55%. Right ventricle systolic function is normal. Left atrium is moderately dilated. Left atrium is moderately dilated. Mild mitral and tricuspid regurgitation. Not on anticoagulation due to recurrent nosebleeds while on Coumadin Metoprolol increased to 50 mg twice daily Monitor and replace electrolytes as needed Consider cardiology evaluation if needed Heart rate intermittently elevated likely secondary to pain Constipation Started on bowel regimen Acute Kidney Injury Creatinine 1.6 today Gentle IV fluids Hold lisinopril today Monitor renal function Avoid nephrotoxic agents as able Hyponatremia Sodium levels improved to 136 Monitor sodium levels DM II: HbA1C 6.3 Continue ISS Monitor BGs HTN Chronic Gout: Continue allopurinol, prednisone Amlodipine increased to 10 mg daily, lisinopril increased to 40 mg daily for better control of blood pressure Monitor DVT Px: Lovenox SQ Code Status: FULL CODE Admission and Anticipated Discharge Date Admission Date: December 05, 2022 Subjective Patient is seen and examined at bedside No new complaints Foot pain is controlled Denies any chest pain, dyspnea, dizziness, nausea, abdominal pain Reports constipation Review of Systems Review of Systems: All systems reviewed & are unremarkable except as noted in Subjective Physical Exam Physical Exam: Physical Exam: Vitals signs as noted above General Appearance:Moderately built and nourished, no apparent distress Head: normocephalic, Atraumatic Eyes: normal inspection, EOMI Neck: supple, Trachea midline Respiratory/Chest: Normal breath sounds, CTA, No accessory muscle use Cardiovascular: Irregularly irregular, No murmur Abdomen/GI:Soft, Non tender, Bowel sounds present Extremities/Musculoskeletal:normal inspection, B/L LE edema, L toe necrotic in dressing, + gouty arthritis Neurologic/Psych:AAOX3, grossly no focal neurological deficits Skin: normal color, warm Results & Data Results & Data Vital Signs (Past 12 Hours) Vital Signs Temp Pulse Pulse Resp BP Pulse Ox O2 Del Method 12/15/22 16:00 76 12/15/22 10:00 78 12/15/22 14:54 37 C 91 H 18 124/48 L 98 Room Air 12/15/22 11:45 36.6 C 78 16 135/69 95 Room Air 12/15/22 07:36 36.7 C 87 18 153/69 H 92 Room Air Laboratory Results Short CBC 12/15/22 Range/Units 05:32 WBC 10.58 (4.8-10.8) K/ul Hgb 10.9 L (14.0-18.0) g/dl Hct 31.5 L (42.0-52.0) % Plt Count 297 (130-400) K/uL BMP 12/15/22 05:32 Sodium 136 Potassium 4.7 Chloride 104 Carbon Dioxide 25 BUN 32 H Creatinine 1.60 H Glucose 97 Calcium 9.0 (1) Wound, open, foot Encounter type: initial encounter Laterality: left Qualified Code(s): S91.302A - Unspecified open wound, left foot, initial encounter (2) Cellulitis Laterality: left Site of cellulitis: extremity Site of cellulitis of extremity: lower extremity Qualified Code(s): L03.116 - Cellulitis of left lower limb (7) CKD (chronic kidney disease), stage III Chronic kidney disease stage 3 subtype: unspecified whether 3a or 3b Qualified Code(s): N18.30 - Chronic kidney disease, stage 3 unspecified
[2022-12-15] MEDS: SIMVASTATIN 20 MG TAB PO SCH (20:02)
[2022-12-15] MEDS: ENOXAPARIN INJ 40 MG/0.4 ML SYR SQ SCH (20:02)
--- NOTE | 2022-12-15 21:50 | Orthopedic Progress Note ---
Date of Service December 15, 2022 Assessment & Plan (1) Ischemic necrosis of toe: Plan: Patient seen, evaluated, and treated. Patient status post day #1 left foot first and second ray resection. Dry, sterile, dressing change with out incident. Suture intact and skin well co-apted. Patient is partial weight bearing to left heel. Will continue to follow while in house. (2) Peripheral arterial disease: (3) Wound, open, foot: Admission and Anticipated Discharge Date Admission Date: December 05, 2022 Subjective Patient seen at bedside in no acute distress. Patient status post day #1 Left first and second ray resection. Patient has no complaints. Review of Systems Review of Systems: All systems reviewed & are unremarkable except as noted in Subjective Physical Exam Constitutional: well developed and well nourished Neck: trachea midline Respiratory: normal respiratory effort Musculoskeletal: Left foot absent first and second rays. Skin: Sutures intact. Skin is well co-apted. Neurologic: Absent epicritic sensation. Psychiatric: Orientation: alert and oriented x 3 Results & Data Vital Signs (Past 12 Hours) Vital Signs Temp Pulse Pulse Resp BP Pulse Ox O2 Del Method 12/15/22 19:25 36.8 C 88 18 118/45 L 95 Room Air 12/15/22 16:00 76 12/15/22 10:00 78 12/15/22 14:54 37 C 91 H 18 124/48 L 98 Room Air 12/15/22 11:45 36.6 C 78 16 135/69 95 Room Air (3) Wound, open, foot Encounter type: initial encounter Laterality: left Qualified Code(s): S91.302A - Unspecified open wound, left foot, initial encounter
[2022-12-16] MEDS: AMOXICILLIN/CLAVULANATE 500 MG TAB PO SCH ×4 (00:23→23:54)
[2022-12-16] MEDS: oxyCODONE HCL IR 5 MG TAB (IMMEDIATE RELEASE) PO PRN ×4 (02:19→21:34)
[2022-12-16] MEDS: HYDROmorphone INJ 0.5 MG/0.5 ML SYR IV PRN (05:33)
[2022-12-16 07:18] LABS: Hematocrit (blood only) 31.9 % (42.0-52.0); Hemoglobin 11.1 g/dl (14.0-18.0)
[2022-12-16 07:28] LABS: BUN Creatinine Ratio 23.4 (10-20); Calcium 9.2 mg/dl (8.6-10.3); Creatinine Clr Calc Pharmacy 51.3 ml/min; Est GFR (African American) 55.8 ml/min; Est GFR (Non-African American) 48.1 ml/min; Potassium 4.9 mmol/L (3.5-5.1)
[2022-12-16] MEDS: DOCUSATE SODIUM 100 MG CAP PO SCH ×2 (08:14→21:04)
[2022-12-16] MEDS: predniSONE 5 MG TAB PO SCH (08:14)
[2022-12-16] MEDS: ASPIRIN 81 MG ECTAB PO SCH (08:14)
[2022-12-16] MEDS: METOPROLOL TARTRATE 50 MG TAB PO SCH ×2 (08:14→21:04)
[2022-12-16] MEDS: CIPROFLOXACIN 500 MG TAB PO SCH ×2 (08:14→21:03)
[2022-12-16] MEDS: amLODIPine BESYLATE 5 MG TAB PO SCH (08:14)
[2022-12-16] MEDS: allopurinoL 300 MG TAB PO SCH (08:14)
[2022-12-16] MEDS: CLOPIDOGREL BISULFATE 75 MG TAB PO SCH (08:14)
[2022-12-16] MEDS: POLYETHYLENE (MIRALAX) 17 GM PACK PO SCH (08:15)
[2022-12-16] MEDS: INSULIN ASPART PER UNIT CHARGE SC SCH ×4 (08:25→21:01)
--- NOTE | 2022-12-16 11:37 | Hospitalist Progress Note ---
Date of Service December 16, 2022 Assessment & Plan (1) Wound, open, foot: (2) Cellulitis: (3) Leg edema: (4) Hyponatremia: (5) Diabetes type 2, controlled: (6) Afib: (7) CKD (chronic kidney disease), stage III: (8) CAD (coronary artery disease): (9) S/P angioplasty with stent: (10) Chronic gout: (11) HTN (hypertension): Plan Left foot wound with cellulitis Gangrenous left toes-POA PAD In setting of DM II and chronic prednisone use MRSA swab negative -MRI Foot:Soft tissue edema is seen compatible with cellulitis. There is diffuse increased signal in the distal digits which is likely due to failure of fat suppression. No definite first digit osteomyelitis is seen. If clinical concern remains, study may be required with the first digit at the center of the field of view. -Venous Doppler:Currently there is normal compressibility of the deep venous system from the common femoral vein through the proximal calf veins. No superficial venous thrombosis is identified -Arterial Doppler:Atherosclerotic plaque with monophasic waveforms within the lower leg. Elevated peak systolic velocities within the superficial femoral artery compatible with a degree of luminal stenosis. No arterial occlusion identified. S/P percutaneous transluminal angioplasty of left distal anterior tibial artery by Dr. Freeman on 12/11/2022 S/P left first and second toe amputation by Dr. Lundy on 12/14/22 -Wound Cx: Acinetobacter, Pseudom Fluoresc/Putida -Blood cultures negative to date Was on IV Vanco, Zosyn>> transitioned to cefepime, Flagyl (DCed on 12/15/22)>>now transitioned to ciprofloxacin 500 mg twice a day, Augmentin for 100 mg every 8 hours as recommended by ID Vascular, ID and ortho recs noted Continue wound care and pain control Continue aspirin, statin Partial weight bearing to left heel per [employer] Super[employer] Plan to continue po ciprofloxacin, Augmentin to complete 3-week course as recommended by ID as able A-fib RVR H/O Afib -ECHO: Left ventricle is normal in size. Left ventricle systolic function is normal. EF 50 to 55%. Right ventricle systolic function is normal. Left atrium is moderately dilated. Left atrium is moderately dilated. Mild mitral and tricuspid regurgitation. Not on anticoagulation due to recurrent nosebleeds while on Coumadin Metoprolol increased to 50 mg twice daily Rate controlled Monitor and replace electrolytes as needed Constipation Continue bowel regimen Acute Kidney Injury Creatinine 1.6 yesterday Trending down to 1.45 today Continue to hold lisinopril Monitor renal function Avoid nephrotoxic agents as able Hyponatremia Sodium levels improved to 137 Monitor sodium levels DM II: HbA1C 6.3 Continue ISS Monitor BGs HTN Currently on amlodipine while lisinopril is on hold Chronic Gout: Continue allopurinol, prednisone DVT Px: Lovenox SQ Code Status: FULL CODE I spent a total of 40 minutes coordinating, documenting and providing care for this patient excluding time spent in performance of separately billed services Admission and Anticipated Discharge Date Admission Date: December 05, 2022 Subjective Patient seen and examined. Reports only occasional left foot pain. Denies any nausea, vomiting, fevers, chills Denies any chest pain, shortness of breath Denies any headache or dizziness Physical Exam Constitutional: + well hydrated; no acute distress Eyes: PERRL, conjunctivae normal, anicteric sclerae ENMT: external ear and nose normal, oropharynx normal Respiratory: normal respiratory effort, lungs clear to auscultation Cardiovascular: Rate/Rhythm: + irregularly irregular S1 S2 Gastrointestinal (Abdomen): normal bowel sounds, soft, nontender, no hepatosplenomegaly Musculoskeletal: LEft foot bandaged. Left leg edema Neurologic: PERRL, EOMI, accommodation nl, no face palsy, no dysarthria Psychiatric: A+Ox3, euthymic affect Results & Data Results & Data Vital Signs (Past 12 Hours) Vital Signs Temp Pulse Pulse Resp BP Pulse Ox O2 Del Method 12/16/22 08:00 36.6 C 98 H 18 153/81 H 97 Room Air 12/16/22 07:35 90 12/16/22 02:59 37.0 C 97 H 18 161/55 H 97 Room Air Laboratory Results Abnormal lab results 12/15/22 12/16/22 12/16/22 Range/Units 20:14 06:05 06:05 Hgb 11.1 L (14.0-18.0) g/dl Hct 31.9 L (42.0-52.0) % BUN 34 H (6-23) mg/dl Creatinine 1.45 H (0.6-1.4) mg/dl BUN/Creatinine Ratio 23.4 H (10-20) Glucose 127 H (70-99(Fasting)) mg/dl POC Glucose 127 H (70-99) mg/dl 12/16/22 12/16/22 12/16/22 Range/Units 07:52 10:42 11:55 Hgb (14.0-18.0) g/dl Hct (42.0-52.0) % BUN (6-23) mg/dl Creatinine (0.6-1.4) mg/dl BUN/Creatinine Ratio (10-20) Glucose (70-99(Fasting)) mg/dl POC Glucose 126 H 102 H 101 H (70-99) mg/dl (1) Wound, open, foot Encounter type: initial encounter Laterality: left Qualified Code(s): S91.302A - Unspecified open wound, left foot, initial encounter (2) Cellulitis Laterality: left Site of cellulitis: extremity Site of cellulitis of extremity: lower extremity Qualified Code(s): L03.116 - Cellulitis of left lower limb (7) CKD (chronic kidney disease), stage III Chronic kidney disease stage 3 subtype: unspecified whether 3a or 3b Qualified Code(s): N18.30 - Chronic kidney disease, stage 3 unspecified
[2022-12-16] MEDS: ENOXAPARIN INJ 40 MG/0.4 ML SYR SQ SCH (21:04)
[2022-12-16] MEDS: SIMVASTATIN 20 MG TAB PO SCH (21:05)
--- NOTE | 2022-12-16 21:52 | Orthopedic Progress Note ---
Date of Service December 16, 2022 Assessment & Plan (1) Ischemic necrosis of toe: Plan: Patient seen, evaluated, and treated. Patient status post day #2 left foot first and second ray resection. Dry, sterile, dressing change with out incident. Sutures intact and skin well co-apted. Patient is partial weight bearing to left heel. Will continue to follow while in house. (2) Peripheral arterial disease: (3) Wound, open, foot: Admission and Anticipated Discharge Date Admission Date: December 05, 2022 Subjective Patient seen and examined at bedside. Patient status post Day #2 right first and second ray resection. Patient has no complaints. Physical Exam Constitutional: well developed and well nourished Eyes: normal visual mendiola by confrontation Neck: trachea midline Respiratory: normal respiratory effort Skin: Sutures intact. Skin is well co-apted. Psychiatric: Orientation: alert and oriented x 3 Results & Data Vital Signs (Past 12 Hours) Vital Signs Temp Pulse Pulse Resp BP Pulse Ox O2 Del Method 12/16/22 19:23 36.9 C 94 H 18 138/75 97 Room Air 12/16/22 16:00 36.4 C L 103 H 18 148/67 H 96 Room Air 12/16/22 15:51 65 12/16/22 12:00 36.9 C 81 18 115/54 L 94 Room Air (3) Wound, open, foot Encounter type: initial encounter Laterality: left Qualified Code(s): S91.302A - Unspecified open wound, left foot, initial encounter
[2022-12-17] MEDS: HYDROmorphone INJ 0.5 MG/0.5 ML SYR IV PRN (00:54)
[2022-12-17] MEDS: oxyCODONE HCL IR 5 MG TAB (IMMEDIATE RELEASE) PO PRN ×3 (05:14→20:55)
[2022-12-17 06:32] LABS: Hematocrit (blood only) 32.4 % (42.0-52.0); Mean Corpuscular Hemoglobin 33.4 pg (25.0-34.0); Mean Corpuscular Volume 98.5 fL (80.0-100.0); Mean Platelet Volume 9.5 fL (9.4-12.4); Platelet Count 324 K/uL (130-400); RDW Coefficient of Variation 13.3 % (11.5-14.5); RDW Standard Deviation 47.8 fL (36.4-46.3); Red Blood Count 3.29 M/uL (4.70-6.10); White Blood Count 10.58 K/ul (4.8-10.8)
[2022-12-17 06:47] LABS: Calcium 9.3 mg/dl (8.6-10.3); Creatinine Clr Calc Pharmacy 57.6 ml/min; Est GFR (African American) 64.2 ml/min; Est GFR (Non-African American) 55.4 ml/min; Phosphorus 3.1 mg/dl (2.5-4.9); Potassium 4.6 mmol/L (3.5-5.1)
[2022-12-17] MEDS: AMOXICILLIN/CLAVULANATE 500 MG TAB PO SCH ×2 (08:23→17:35)
[2022-12-17] MEDS: CLOPIDOGREL BISULFATE 75 MG TAB PO SCH (08:23)
[2022-12-17] MEDS: ASPIRIN 81 MG ECTAB PO SCH (08:23)
[2022-12-17] MEDS: DOCUSATE SODIUM 100 MG CAP PO SCH ×2 (08:23→20:56)
[2022-12-17] MEDS: allopurinoL 300 MG TAB PO SCH (08:24)
[2022-12-17] MEDS: predniSONE 5 MG TAB PO SCH (08:24)
[2022-12-17] MEDS: amLODIPine BESYLATE 5 MG TAB PO SCH (08:24)
[2022-12-17] MEDS: METOPROLOL TARTRATE 50 MG TAB PO SCH ×2 (08:24→20:55)
[2022-12-17] MEDS: CIPROFLOXACIN 500 MG TAB PO SCH ×2 (08:24→20:56)
[2022-12-17] MEDS: POLYETHYLENE (MIRALAX) 17 GM PACK PO SCH (08:24)
[2022-12-17] MEDS: INSULIN ASPART PER UNIT CHARGE SC SCH ×4 (09:56→20:42)
--- NOTE | 2022-12-17 13:59 | Hospitalist Progress Note ---
Date of Service December 17, 2022 Assessment & Plan (1) Wound, open, foot: (2) Cellulitis: (3) Leg edema: (4) Hyponatremia: (5) Diabetes type 2, controlled: (6) Afib: (7) CKD (chronic kidney disease), stage III: (8) CAD (coronary artery disease): (9) S/P angioplasty with stent: (10) Chronic gout: (11) HTN (hypertension): Plan Left foot wound with cellulitis Gangrenous left toes-POA PAD In setting of DM II and chronic prednisone use MRSA swab negative -MRI Foot:Soft tissue edema is seen compatible with cellulitis. There is diffuse increased signal in the distal digits which is likely due to failure of fat suppression. No definite first digit osteomyelitis is seen. If clinical concern remains, study may be required with the first digit at the center of the field of view. -Venous Doppler:Currently there is normal compressibility of the deep venous system from the common femoral vein through the proximal calf veins. No superficial venous thrombosis is identified -Arterial Doppler:Atherosclerotic plaque with monophasic waveforms within the lower leg. Elevated peak systolic velocities within the superficial femoral artery compatible with a degree of luminal stenosis. No arterial occlusion identified. S/P percutaneous transluminal angioplasty of left distal anterior tibial artery by Dr. Freeman on 12/11/2022 S/P left first and second toe amputation by Dr. Lundy on 12/14/22 -Wound Cx: Acinetobacter, Pseudom Fluoresc/Putida -Blood cultures negative to date Was on IV Vanco, Zosyn>> transitioned to cefepime, Flagyl (DCed on 12/15/22)>>now transitioned to ciprofloxacin 500 mg twice a day, Augmentin for 100 mg every 8 hours as recommended by ID Vascular, ID and ortho recs noted Continue wound care and pain control Continue aspirin, statin Continue plavix started by Vascular surgeon Partial weight bearing to left heel per Oil Dispenser Continue po ciprofloxacin, Augmentin to complete 3-week course as recommended by ID as able A-fib RVR H/O Afib -ECHO: Left ventricle is normal in size. Left ventricle systolic function is normal. EF 50 to 55%. Right ventricle systolic function is normal. Left atrium is moderately dilated. Left atrium is moderately dilated. Mild mitral and tricuspid regurgitation. Not on anticoagulation due to recurrent nosebleeds while on Coumadin Metoprolol increased to 50 mg twice daily Rate controlled Monitor and replace electrolytes as needed Constipation Continue bowel regimen Acute Kidney Injury Creatinine 1.6 yesterday Trending down to 1.29 today Continue to hold lisinopril for today. Monitor renal function Avoid nephrotoxic agents as able Hyponatremia Sodium levels improved to 137 Monitor sodium levels DM II: HbA1C 6.3 Continue ISS Monitor BGs HTN Currently on amlodipine while lisinopril is on hold Chronic Gout: Continue allopurinol, prednisone DVT Px: Lovenox SQ Code Status: FULL CODE I spent a total of 45 minutes coordinating, documenting and providing care for this patient excluding time spent in performance of separately billed services Admission and Anticipated Discharge Date Admission Date: December 05, 2022 Subjective Patient seen and examined. Reports left foot pain is controlled. Denies any nausea, vomiting, fevers, chills Denies any chest pain, shortness of breath Denies any headache or dizziness Physical Exam Constitutional: + well hydrated; no acute distress Eyes: PERRL, conjunctivae normal, anicteric sclerae ENMT: external ear and nose normal, oropharynx normal Respiratory: normal respiratory effort, lungs clear to auscultation Cardiovascular: Rate/Rhythm: + irregularly irregular S1 S2 Gastrointestinal (Abdomen): normal bowel sounds, soft, nontender, no hepatosplenomegaly Musculoskeletal: Left foot bandaged. Pedal edema Neurologic: PERRL, EOMI, accommodation nl, no face palsy, no dysarthria Psychiatric: A+Ox3, euthymic affect Results & Data Results & Data Vital Signs (Past 12 Hours) Vital Signs Temp Pulse Pulse Resp BP Pulse Ox O2 Del Method 12/17/22 11:00 37.4 C 80 16 129/71 96 Room Air 12/17/22 07:27 37.0 C 94 H 16 143/71 H 96 Room Air 12/17/22 02:43 36.5 C 78 17 156/66 H 96 Room Air Laboratory Results Abnormal lab results 12/16/22 12/17/22 12/17/22 Range/Units 16:55 05:51 05:51 RBC 3.29 L (4.70-6.10) M/uL Hgb 11.0 L (14.0-18.0) g/dl Hct 32.4 L (42.0-52.0) % RDW Std Deviation 47.8 H (36.4-46.3) fL BUN 31 H (6-23) mg/dl BUN/Creatinine Ratio 24.0 H (10-20) Glucose 112 H (70-99(Fasting)) mg/dl POC Glucose 146 H (70-99) mg/dl 12/17/22 12/17/22 Range/Units 07:18 11:17 RBC (4.70-6.10) M/uL Hgb (14.0-18.0) g/dl Hct (42.0-52.0) % RDW Std Deviation (36.4-46.3) fL BUN (6-23) mg/dl BUN/Creatinine Ratio (10-20) Glucose (70-99(Fasting)) mg/dl POC Glucose 109 H 150 H (70-99) mg/dl (1) Wound, open, foot Encounter type: initial encounter Laterality: left Qualified Code(s): S91.302A - Unspecified open wound, left foot, initial encounter (2) Cellulitis Laterality: left Site of cellulitis: extremity Site of cellulitis of extremity: lower extremity Qualified Code(s): L03.116 - Cellulitis of left lower limb (7) CKD (chronic kidney disease), stage III Chronic kidney disease stage 3 subtype: unspecified whether 3a or 3b Qualified Code(s): N18.30 - Chronic kidney disease, stage 3 unspecified
[2022-12-17] MEDS: SIMVASTATIN 20 MG TAB PO SCH (20:55)
[2022-12-17] MEDS: ENOXAPARIN INJ 40 MG/0.4 ML SYR SQ SCH (20:55)
[2022-12-18] MEDS: AMOXICILLIN/CLAVULANATE 500 MG TAB PO SCH ×2 (02:48→08:15)
[2022-12-18] MEDS: oxyCODONE HCL IR 5 MG TAB (IMMEDIATE RELEASE) PO PRN ×3 (02:50→13:08)
[2022-12-18 06:26] LABS: BUN Creatinine Ratio 24.2 (10-20); Calcium 9.4 mg/dl (8.6-10.3); Est GFR (African American) 67.4 ml/min; Est GFR (Non-African American) 58.1 ml/min; Magnesium 2.1 mg/dl (1.7-2.4); Potassium 4.6 mmol/L (3.5-5.1)
[2022-12-18] MEDS: CIPROFLOXACIN 500 MG TAB PO SCH (08:15)
[2022-12-18] MEDS: METOPROLOL TARTRATE 50 MG TAB PO SCH (08:15)
[2022-12-18] MEDS: DOCUSATE SODIUM 100 MG CAP PO SCH (08:15)
[2022-12-18] MEDS: CLOPIDOGREL BISULFATE 75 MG TAB PO SCH (08:15)
[2022-12-18] MEDS: POLYETHYLENE (MIRALAX) 17 GM PACK PO SCH (08:15)
[2022-12-18] MEDS: allopurinoL 300 MG TAB PO SCH (08:16)
[2022-12-18] MEDS: ASPIRIN 81 MG ECTAB PO SCH (08:16)
[2022-12-18] MEDS: amLODIPine BESYLATE 5 MG TAB PO SCH (08:16)
[2022-12-18] MEDS: predniSONE 5 MG TAB PO SCH (08:16)
[2022-12-18] MEDS: INSULIN ASPART PER UNIT CHARGE SC SCH ×2 (08:44→12:28)
--- NOTE | 2022-12-18 09:57 | Surgery Progress Note ---
Date of Service December 18, 2022 Assessment & Plan (1) Peripheral arterial disease: Plan: Pt underwent LLE angio with INVESTIGATIVE RESEARCH SPECIALIST to distal AT. Has excellent doppler at ankle, good cap refill to remaining toes. WIll see in office in 4 weeks to reeval. Please call if needed. Admission and Anticipated Discharge Date Admission Date: December 05, 2022 Subjective 72 yo m 1 week s/p LLE angio with INVESTIGATIVE RESEARCH SPECIALIST to distal AT artery, seen in f/u today. Pt states he was told his wound is healing well. No new complaints. Review of Systems Review of Systems: All systems reviewed & are unremarkable except as noted in HPI & below Physical Exam Constitutional: WD/WN, vitals as above healthy appearing, cooperative and comfortable; not in distress Cardiovascular: Vessels: posterior tibial pulses present (dopplerable BLE) and dorsalis pedis pulses present (dopplerable BLE) Skin: + wound (surgical wound to LLE with large dressing. Remainder of toes good refill) Results & Data Vital Signs (Past 12 Hours) Vital Signs Temp Pulse Pulse Pulse Resp BP Pulse Ox 12/18/22 08:00 78 12/18/22 07:33 36.9 C 86 16 142/70 H 98 12/18/22 02:40 36.9 C 106 H 18 161/94 H 98 12/17/22 22:03 73 12/17/22 23:08 37 C 70 16 134/64 95 O2 Del Method 12/18/22 08:00 12/18/22 07:33 Room Air 12/18/22 02:40 Room Air 12/17/22 22:03 12/17/22 23:08 Room Air
--- NOTE | 2022-12-18 10:17 | Orthopedic Progress Note ---
Date of Service December 18, 2022 Assessment & Plan (1) Ischemic necrosis of toe: Plan: Patient seen, evaluated, and treated. Patient status post day #4 left foot first and second ray resection. Dry, sterile, dressing change with out incident. Sutures intact and skin well co-apted. Surgical site is stable. Patient is partial weight bearing to left heel. Patient will follow up in office for continued care. Will continue to follow while in house. (2) Peripheral arterial disease: (3) Wound, open, foot: Admission and Anticipated Discharge Date Admission Date: December 05, 2022 Subjective Patient seen at bedside. He is status post day #4 left foot surgery. No new complaints. Review of Systems Review of Systems: All systems reviewed & are unremarkable except as noted in Subjective Physical Exam Constitutional: well developed and well nourished Eyes: normal visual mendiola by confrontation Neck: trachea midline Respiratory: normal respiratory effort Skin: Skin well co-apted. Skin sutures in place. Psychiatric: Orientation: alert and oriented x 3 Results & Data Vital Signs (Past 12 Hours) Vital Signs Temp Pulse Pulse Pulse Resp BP Pulse Ox 12/18/22 08:00 78 12/18/22 07:33 36.9 C 86 16 142/70 H 98 12/18/22 02:40 36.9 C 106 H 18 161/94 H 98 12/17/22 23:08 37 C 70 16 134/64 95 O2 Del Method 12/18/22 08:00 12/18/22 07:33 Room Air 12/18/22 02:40 Room Air 12/17/22 23:08 Room Air (3) Wound, open, foot Encounter type: initial encounter Laterality: left Qualified Code(s): S91.302A - Unspecified open wound, left foot, initial encounter
--- NOTE | 2022-12-18 12:10 | Discharge Summary ---
Date of Service December 18, 2022 Admission HPI Per Admitting Provider Pt is a 72 y/o M with hx of Chronic Gout with tophi, DMII (not on meds), CKD III, CAD s/p stent, Afib (not on AC due to nose bleed), HTN came into the ER with worsening L big toe swelling, erythema and drainage. Per pt abt 5 days ago when he removed his socks the big toenail came off since then the area has been erythematous, and having drainage. Recently the L left gotten more swollen with increased pain. Pt also experiencing worsening b/l leg swelling. Denied any acute CP, SOB, or orthopnea. Denied any fever or prior hx of foot ulcer. Has been on allopurinol and prednisone 5mg daily for chronic gout with tophi Admission Exam Per Admitting Provider General:.NAD, well developed, well nourished, average body habitus HEENT:.Normocephalic and atraumatic, Normal Conjunctiva, EOMI, Sclera is non- icteric Lungs:.No signs of respiratory distress, CTA, no wheezing or crackles Heart:.in afib Abdominal:.ND, Soft, NT MSK:severe b/l LE pitting edema, L foot: absence of L first toenail with stage 3 ulcers and serosanguineous drainage, L foot erythema and TTP Psych:.AAOx3, normal affect Principal Diagnosis Left foot wound with cellulitis Status post left 1st and 2nd ray amputation Peripheral Artery Disease Status post left lower extremity angiogram, CUSTODIAN ATHLETIC EQUIPMENT Prediabetes Discharge Exam Constitutional + well hydrated; no acute distress Eyes PERRL, conjunctivae normal, anicteric sclerae ENMT external ear and nose normal, oropharynx normal Respiratory normal respiratory effort, lungs clear to auscultation Cardiovascular Rate/Rhythm: + irregularly irregular S1 S2 Gastrointestinal (Abdomen) normal bowel sounds, soft, nontender, no hepatosplenomegaly Musculoskeletal Left foot bandaged Neurologic PERRL, EOMI, accommodation nl, no face palsy, no dysarthria Psychiatric A+Ox3, euthymic affect Discharge Data Allergies Allergy/AdvReac Type Severity Reaction Status Date / Time No Known Allergies Allergy Unverified 12/11/22 07:22 Consultations 12/05/22 15:51 ED Decision to Admit Stat 12/05/22 19:29 Consult Orthopedic Surgery Routine 12/06/22 08:19 Consult Vascular Surgery Routine 12/11/22 09:04 Consult Infectious Diseases Routine 12/13/22 09:04 Consult Podiatry Routine Procedures Performed Operation Date: 12/14/22 07:00 Actual Procedures p Left 1st, 2nd Ray Amputation(Left) - Baldo Lundy, DPM, MS Ordered Studies 12/05/22 16:43 US venous doppler LE BI Stat 12/06/22 17:57 MR foot LT wo/w con Stat 12/07/22 10:49 US arterial duplex LE LT Urgent 12/11/22 07:24 EV angio LE LT Routine US EV guide vascular access Routine Hospital Course (1) Wound, open, foot: (2) Cellulitis: (3) Leg edema: (4) Hyponatremia: (5) Diabetes type 2, controlled: (6) Afib: (7) CKD (chronic kidney disease), stage III: (8) CAD (coronary artery disease): (9) S/P angioplasty with stent: (10) Chronic gout: (11) HTN (hypertension): Plan Left foot wound with cellulitis Gangrenous left toes-POA PAD In setting of DM II and chronic prednisone use MRSA swab negative -MRI Foot:Soft tissue edema is seen compatible with cellulitis. There is diffuse increased signal in the distal digits which is likely due to failure of fat suppression. No definite first digit osteomyelitis is seen. If clinical concern remains, study may be required with the first digit at the center of the field of view. -Venous Doppler:Currently there is normal compressibility of the deep venous system from the common femoral vein through the proximal calf veins. No superficial venous thrombosis is identified -Arterial Doppler:Atherosclerotic plaque with monophasic waveforms within the lower leg. Elevated peak systolic velocities within the superficial femoral artery compatible with a degree of luminal stenosis. No arterial occlusion identified. S/P percutaneous transluminal angioplasty of left distal anterior tibial artery by Dr. Freeman on 12/11/2022 S/P left first and second toe amputation by Dr. Lundy on 12/14/22 -Wound Cx: Acinetobacter, Pseudom Fluoresc/Putida -Blood cultures negative to date Was on IV Vanco, Zosyn>> transitioned to cefepime, Flagyl (DCed on 12/15/22)>>now transitioned to ciprofloxacin 500 mg twice a day, Augmentin for 100 mg every 8 h ours as recommended by ID Vascular, ID and ortho were involved in his management Continue aspirin, statin Continue plavix started inpatient Partial weight bearing to left heel per Automobile Glass Technician Continue po ciprofloxacin, Augmentin to complete 3-week course as recommended by ID A-fib RVR H/O Afib -ECHO: Left ventricle is normal in size. Left ventricle systolic function is normal. EF 50 to 55%. Right ventricle systolic function is normal. Left atrium is moderately dilated. Left atrium is moderately dilated. Mild mitral and tricuspid regurgitation. Not on anticoagulation due to recurrent significant epistaxis while on Coumadin Metoprolol increased to 50 mg twice daily Rate controlled Acute Kidney Injury Resolved Resume home lisinopril Avoid nephrotoxic agents as able DM II: HbA1C 6.3 Educated on lifestyle modification and diabetes management Hypertension Continue home lisinopril Chronic Gout: Continue allopurinol, prednisone Discharged to [facility] for rehab Total Time Total Time Spent Total Time Spent (In Minutes): 45 Total Time Includes: Examination of the Patient, Discharge Planning and Medication Reconciliation Discharge Plan Discharge Items Patient Disposition: Transfer Inpatient Rehab Fac Reason For Visit: L FOOT ULCER Discharge Diagnosis: LEft foot wound with cellulitis Status post left 1st and 2nd ray amputation Peripheral Artery Disease Status post left lower extremity angiogram, CUSTODIAN A[employer]LET[employer] EQUIPMENT Prediabetes Activity: As commented below Activity Comment: Per PT recs Non-emergency contact: Primary Care Provider and Surgeon Call non-emergency contact if: you have any medication questions and your symptoms worsen Follow-up/Referrals: Faviola Serrano PA-C [Primary Care Provider] - Diet: Carb Consistent or DM2 and Heart Healthy Addtl Attending Provider Instructions: Mr Bush You came to the hospital with left foot wound and gangrenous toes. You were evaluated and had Left 1st and 2nd ray amputation by Dr Lundy. You also had Left lower extremity angiogram and angioplasty (CUSTODIAN ATHLETIC EQUIPMENT) by Dr Freeman. You are being discharged to [facility] for rehab. Please continue aspirin and Plavix. Please ensure follow up with Dr Freeman and Dr Lundy. Please continue oral antibiotics to complete 3 weeks of therapy (End date 01/05/23) Your metoprolol was increased to 50mg twice a day for better heart rate control Please adhere to lifestyle modification we discussed It was a pleasure taking care of you. Pending Studies at Discharge: No Stand-Alone Forms: My [facility] Skilled Items Patient informed of condition?: Yes DNR: No Discharge Level of Care: Acute rehab Communicable Disease: No Discharge Prognosis: Stable Lines: None Urinary Catheter: No Medications and DC Order Prescriptions: New amoxicillin-pot clavulanate 500-125 mg Tablet 1 tab PO Q8H Qty: 36 0RF ciprofloxacin HCl 500 mg Tablet 500 mg PO BID Qty: 36 0RF acetaminophen 325 mg Tablet 650 mg PO Q4H PRN (Reason: pain) Qty: 30 0RF clopidogrel 75 mg Tablet 75 mg PO QAM Qty: 30 0RF docusate sodium 100 mg Capsule 100 mg PO BID Qty: 30 0RF oxycodone 5 mg Tablet 10 mg PO BID PRN (Reason: Severe pain) Qty: 10 0RF polyethylene glycol 3350 [Miralax] 17 gram Powder In Packet 17 g PO DAILY PRN (Reason: Constipation) Qty: 14 0RF Continued lisinopril 20 mg tablet 20 mg PO QAM prednisone 5 mg tablet 5 mg PO QAM simvastatin 20 mg tablet 20 mg PO QPM allopurinol 300 mg tablet 300 mg PO QAM aspirin 81 mg Tablet,Delayed Release (Dr/Ec) 81 mg PO DAILY Changed metoprolol tartrate 25 mg tablet 50 mg PO BID Qty: 120 0RF Discontinued meloxicam 15 mg tablet 15 mg PO QAM Discharge Orders: Discharge Order (Routine); Ordered 12/18/22 Ordered By: Jo Rubi/Other Patient Handouts: Prediabetes, 5 Steps for Eating Healthier Admission Data Admit Date/Time: 12/05/22 16:43 Attending Provider: Jo Camilo I. Admit Provider: Marleni Givens Primary Care Provider: Faviola Serrano Other Providers: Marleni Givens ; Gavin Lewis Eugene J ; Chilango Bosch ; Shruti Barnard ; Michael Mobley I. ; Thiago Barroso II ; Rimma Blue ; Kenneth El ; Evelio Huertas ; Neel Pretty ; Baldo Lundy ; [facility] ; [facility] ; Steve Ann Other Interventions: Discharge Summary Assessment (RN) Last Done: 12/18/22 11:39
== END 2022-12-18 14:34 | DRG 580 ==
LOC: ED 13:18 → 2N 16:43 → SUATTDRO 16:43 → 2N 18:15